=== PATIENT | male | born 1955 | race Caucasian/White ===

== ENCOUNTER → 2020-10-12 | Outpatient (CLI) | payer OTHER, SELFPAY ==
[2020-10-12 19:20] VITALS: BMI 29.7
[2020-10-12 21:44] LABS: Absolute Lymphocyte Count 2.17 X10^3/uL (0.83-4.51); Absolute Neutrophil Count 4.6 X10^3/uL (2.0-7.7); Basophil# 0.05 X10^3/uL; Basophil% 0.7 % (0-1); Eosinophil# 0.09 X10^3/uL; Eosinophils% 1.2 % (0-5); Hematocrit 47.2 % (40-54); Hemoglobin 15.5 g/dL (13.0-16.5); Lymphocyte # 2.17 X10^3/ul (4.0); Lymphocyte % 29.6 % (19-41); Mean Corp Hgb Conc 32.8 g/dL (32-36); Mean Corpuscular Hgb 31.1 pg (27.0-32.0); Mean Corpuscular Volume 94.8 fL (80-94); Mean Platelet Vol. 9.6 fl (6.2-12.0); Monocyte# 0.43 X10^3/uL; Monocyte% 5.9 % (0-10); NRBC Flagged by Analyzer 0 % (0-5); Neutrophil # 4.56 X10^3/uL (2.7-7.7); Neutrophil % 62.1 % (47-70); Platelet Count 243 K/mm3 (150-450); RBC Distribution Width CV 12.8 % (11.6-14.6); RBC Distribution Width SD 44.5 fl (35.1-43.9); Red Blood Count 4.98 M/mm3 (4.6-6.2); White Blood Count 7.3 K/mm3 (4.4-11.0)
[2020-10-12 22:11] LABS: ALB/GLOB Ratio 1.2 RATIO (0.9-2.4); AST(SGOT) 19 U/L (15-37); Alanine Aminotransfer ALT/SGPT 47 U/L (16-61); Albumin, Serum 4.1 g/dL (3.2-5.0); Alkaline Phosphatase 82 U/L (45-117); Anion Gap 6 (5-15); BUN 13 mg/dL (7-18); BUN/Creat Ratio 14.2 RATIO (10-20); Chloride 106 mmol/L (98-107); Cholesterol 154 mg/dL (200); Creatinine, Serum 0.92 mg/dL (0.70-1.30); EST Glomerular Filtration Rate 88 mL/min (>60); Est Glom Filt Rate - Afr Amer 107 mL/min (>60); Globulin 3.4 g/dL (2.2-4.2); Glucose 104 mg/dL (74-106); High Density Lipoprotein 35 mg/dL; PSA,Total - Annual Screen 0.66 ng/mL (0.00-4.00); Potassium 4.2 mmol/L (3.5-5.1); Protein, Total 7.5 g/dL (6.4-8.2); Sodium Level 141 mmol/L (136-145); Thyroid Stim Hormone (TSH) 2.35 uIU/mL (0.358-3.74); Triglycerides 136 mg/dL; Very Low Density Lipoprotein 27 mg/dL (5-40)
== END | disposition home or self-care (01) ==
PROVIDERS: Visit Provider Nurse Practitioner
DX: I10 Essential (primary) hypertension (principal); E11.65 Type 2 diabetes mellitus with hyperglycemia; R35.0 Frequency of micturition
CPT/HCPCS: 80053; 80061; 84153; 84443; 85025; G0103

== ENCOUNTER → 2020-11-01 06:14 | Outpatient (CLI) | payer OTHER, SELFPAY ==
[2020-10-21 09:13] VITALS: BMI 29.1
--- NOTE | 2020-11-01 06:19 | ECHOD_ITS ---
Reason For Study: CAD/ASHD Procedure This was a 2D Doppler, Color Flow transthoracic echocardiogram. Exam performed in department. Left Ventricle Normal LV size. Left ventricular systolic function is normal. The estimated ejection fraction is 60 %. No regional wall motion abnormalities noted. Right Ventricle Normal RV size. Normal systolic function. Atria Normal left atrium. Normal right atrium. Mitral Valve Normal mitral valve. Tricuspid Valve Normal tricuspid valve. Aortic Valve Normal aortic valve. Trisinus/trileaflet aortic valve. Pulmonic Valve Normal pulmonic valve. Great Vessels Normal aortic root. The pulmonary artery is normal size. Normal inferior vena cava. Pericardium/Pleural No pericardial effusion. MMode/2D Measurements & Calculations LVIDd: 5.0 cm IVSd: 1.1 cm Ao root diam: 3.5 cm LVIDs: 3.5 cm LVPWd: 1.1 cm RVDd: 4.1 cm FS: 29.8 % LAV(MOD-bp): 72.6 ml LA A4 area: 19.6 cm2 LA dimension(2D): 4.0 cm LAV(MOD-bp) Indexed: 33.6 ml/m2 LAV(MOD-sp2): 69.2 ml LAV(MOD-sp4): 64.9 ml RA A4 area: 20.4 cm2 Time Measurements MV dec time: 0.20 sec Doppler Measurements & Calculations MV E max kenton: 77.5 cm/sec Lat Peak E' Kenton: 9.9 cm/sec Med Peak E' Kenton: 9.6 cm/sec MV A max kenton: 56.5 cm/sec E/E' lat: 7.8 E/E' med: 8.1 MV E/A: 1.4 Ao V2 max: 135.2 cm/sec LV V1 max: 102.2 cm/sec PA V2 max: 95.2 cm/sec Ao max P.3 mmHg LV V1 max P.2 mmHg Interpretation Summary Normal LV size. Left ventricular systolic function is normal. The estimated ejection fraction is 60 %. Structurally normal valves. Ordering Physician: Juventino Weber Referring Physician: Tamar Atwood Performed By: Mary Park RDCS, RVT
--- NOTE | 2020-11-01 17:19 | STRESSREP ---
Stress Test Report Exercise myocardial perfusion stress test. 65-year-old male with a history of coronary artery disease with right arm pain. Medications aspirin, atorvastatin, metoprolol, lisinopril, Plavix. Stress protocol: Resting EKG demonstrates sinus bradycardia with a rate of 58 bpm normal intervals are noted resting blood pressure is 1 and 30/80 2 mmHg. The patient exercised according to the regular Mason protocol for a total duration of 8 minutes. The patient completed 2 minutes into stage III of the Mason protocol. The maximum heart rate attained was 133 bpm which was 85% of max impacted heart rate the maximum workload was 10.1 metabolic equivalents. At rest there were no ST or T wave changes noted suggest ischemia peak exercise upsloping ST changes were noted which did not meet the criteria for ischemia. No clinical angina was noted the test was terminated due to dyspnea and leg fatigue. No clinical angina was noted the peak blood pressure was 144/80 mmHg which was a good blood pressure response to exercise. Myocardial perfusion protocol. 12.0 mCi of technetium 99m sestamibi was injected at rest. The patient exercised according to regular Mason protocol for 8 minutes and at peak exercise 34.3 mCi of technetium 99m sestamibi was injected stress images were obtained stress and rest images were reconstructed and compared in the short axis vertical long and horizontal long axis. Gated images were also obtained Perfusion SPECT analysis: Review of the stress images demonstrate normal uptake of tracer noted in all areas of the myocardium except for the mid inferior wall which demonstrates reduced perfusion. The septum anterior wall and lateral wall appear to be well perfused. On the resting images there is improvement on the inferior perfusion area suggesting of mid inferior ischemia present. Gated SPECT analysis: The gated ejection fraction is 62%. Conclusion: Exercise myocardial perfusion stress test with evidence of mid inferior ischemia artery moderate to high workload. No obvious clinical angina noted. Preserved ejection fraction.
== END ==
PROVIDERS: PCP Nurse Practitioner; Visit Provider Internal Medicine Cardiovascular Disease
DX: I25.10 Atherosclerotic heart disease of native coronary artery without angina pectoris (principal); I25.5 Ischemic cardiomyopathy; I10 Essential (primary) hypertension; Z95.5 Presence of coronary angioplasty implant and graft
CPT/HCPCS: 78452; 93017; 93306; A9500; A4216

== ENCOUNTER 2021-05-11 12:07 | Inpatient (IN) | payer MEDICARE, SELFPAY ==
--- NOTE | 2021-05-05 10:44 | RAD_ITS ---
STUDY: X-RAY CHEST REASON FOR EXAM: Male, 66 years old. pre-operative TECHNIQUE: PA and lateral views of the chest. COMPARISON: None. FINDINGS: The lungs are clear and expanded. There is no demonstrated pleural abnormality. Normal size heart. Normal mediastinum and tay. Normal visualized pulmonary arteries. Normal visualized aortic arch and descending thoracic aorta. Normal visualized thoracic spine. Normal visualized ribs, clavicles, and shoulders. There is no demonstrated abnormality of the visualized soft tissue structures of the upper abdomen. RAD/Chest PA and Lateral IMPRESSION: Normal x-ray examination of the chest. Electronically Signed: Adrien Barriga MD at 17:27 EDT Tel , Service support ,
[2021-05-05 11:02] LABS: Absolute Lymphocyte Count 1.61 X10^3/uL (0.83-4.51); Absolute Neutrophil Count 3.7 X10^3/uL (2.0-7.7); Basophil# 0.05 X10^3/uL; Basophil% 0.8 % (0-1); Eosinophil# 0.08 X10^3/uL; Eosinophils% 1.4 % (0-5); Hematocrit 47.7 % (40-54); Lymphocyte # 1.61 X10^3/ul (0.83-4.51); Lymphocyte % 27.2 % (19-41); Mean Corp Hgb Conc 33.5 g/dL (32-36); Mean Corpuscular Hgb 30.6 pg (27.0-32.0); Mean Corpuscular Volume 91.2 fL (80-94); Monocyte# 0.44 X10^3/uL; Monocyte% 7.4 % (0-10); NRBC Flagged by Analyzer 0 % (0-5); Neutrophil # 3.71 X10^3/uL (2.7-7.7); Neutrophil % 62.7 % (47-70); Platelet Count 239 K/mm3 (150-450); RBC Distribution Width CV 12.4 % (11.6-14.6); RBC Distribution Width SD 41.1 fl (35.1-43.9); Red Blood Count 5.23 M/mm3 (4.6-6.2); White Blood Count 5.9 K/mm3 (4.4-11.0)
[2021-05-05 11:32] LABS: Anion Gap 2 (5-15); BUN 12 mg/dL (7-18); BUN/Creat Ratio 15.6 RATIO (10-20); Calcium,Total 9.2 mg/dL (8.5-10.1); Chloride 107 mmol/L (98-107); Creatinine, Serum 0.77 mg/dL (0.70-1.30); EST Glomerular Filtration Rate 108 mL/min (>60); Est Glom Filt Rate - Afr Amer 131 mL/min (>60); Glucose 95 mg/dL (74-106); Potassium 4.5 mmol/L (3.5-5.1); Sodium Level 138 mmol/L (136-145)
[2021-05-11] VITALS (31 sets, daily range): BP systolic 68–119; BP diastolic 40–62; PULSE 55–79; RESP 14–15; TEMP 36.6–36.9; O2SAT 91–99; BMI 29.5; BMI 30.2
--- NOTE | 2021-05-11 10:02 | CL.D_ITS ---
Patient Name: SHARIF FATIMA Study Date: 05/11/2021 Performing: Juventino Weber MD Ht: 70.07 inches 178 cm : 1955 Wt: 205.03 lbs 93 kg Age: 66 Gender: male BSA: 2.11 PROCEDURE(S) PERFORMED GT61-MRK/COR/LV [id number], CORONARY OR GRAFT, INITIAL VESSEL CLINICAL PROFILE AND INDICATIONS Indications: Worsening Angina Heart Failure: None Stress/Imaging Date: 10/30/20ress Test with SPECT MPI: Positive Intermediate Risk CAD Presentations: Unstable angina. CONCLUSIONS Previously placed stent in the proximal mid and distal right coronary artery is patent with moderate in-stent stenosis Moderate mid left anterior descending artery stenosis RECOMMENDATIONS Staged for FFR DESCRIPTION OF PROCEDURE The patient arrived to the procedure lab. The risks and benefits of the procedure as well as a full d escription of our services here and current unavailability of surgical backup were fully explained to the patient and/or their significant other prior to the catheterization. The Timeout was completed, verifying the correct patient and procedure. The patient's procedural site was prepped and draped in the usual fashion. Local anesthetic was given subcutaneously to right radial region with Lidocaine 2% . Using a modified Seldinger technique, arterial access was obtained via the right radial artery, a 6 Fr sheath was inserted. Right Coronary Artery selective angiography was then performed in multiple v iews using a 5 Fr. 4.0 [place] catheter. Left Coronary Artery selective angiography was performed in mu ltiple views using a 5 Fr. 4.0 [place] catheter. Left Ventriculography was performed in CHO projection using a 5 Fr. Pigtail catheter. LV to AO pullback pressures were then recorded. CORONARY ANGIOGRAPHY DOMINANCE: Right Dominant LEFT HEART ASSESSMENT Left Ventricular Ejection Fraction: by LV Gram 65 % Normal LV wall motion Normal Left Ventricular systolic function LEFT MAIN: Mild calcification LEFT ANTERIOR DESCENDING ARTERY: MID LAD: Diffusely diseased up to 65 % CIRCUMFLEX ARTERY: No significant disease noted RIGHT CORONARY ARTERY: PROX RCA: Previously placed stent is patent MID RCA: Previously placed stent has an instent 40 % restenosis DISTAL RCA: Previously placed stent has an instent 30 % restenosis, Mild luminal irregularities less than 30% COMPLICATIONS PROCEDURE MEDICATIONS Fentanyl 50 mcg IV Versed 1 mg IV Versed 1 mg IV Oxygen: 2 L/min via nasal cannula Heparin given IA 05/11/2021 09:39:26 Heparin 6000 unit(s) IV 05/11/2021 09:58:37 IV Fluids: .9 NaCl increased to WO ml/hr 05/11/2021 09:42:29 SUMMARY OF HEMODYNAMIC DATA Time AIR REST ECG 07:05:26 AO 83/56 (68) SA 09:42:06 LV 95/4, 15 09:50:48 LV 98/4, 12 09:50:54 LV 96/8, 14 09:51:29 LVp 89/7, 13 09:51:34 AOp 97/53 (65) 09:51:39 Signed By Juventino Weber MD On 05/11/2021 10:01:52 Juventino Weber MD
[2021-05-11 10:51] LABS: Bedside Glucose 136 mg/dL (70-110)
--- NOTE | 2021-05-11 10:56 | CASEMGMT ---
According to [facility] website, the following are in-network tertiary facilities: [facility], [place] [facility], [facility], [place], [facility], [facility], [facility], [place], [facility], and . Sophie ALICIA CM
--- NOTE | 2021-05-11 11:55 | ECHOL_ITS ---
Reason For Study: Assess LV function Procedure This was a limited 2D transthoracic echocardiogram. The study was technically limited. 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 Left Ventricle Normal LV size. Mild to moderate segmental systolic dysfunction (see wall motion). The estimated ejection fraction is 45 %. Mid-Lateral : Mildly hypokinetic. Mid-Anterior : Mildly hypokinetic. Mid- Posterior: Hypokinetic. There are regional wall motion abnormalities as specified. Right Ventricle Normal RV size. Normal systolic function. Pericardium/Pleural No pericardial effusion. MMode/2D Measurements & Calculations LVIDd: 4.1 cm IVSd: 1.4 cm Ao root diam: 3.5 cm LVIDs: 3.2 cm LVPWd: 1.0 cm FS: 20.8 % LA dimension(2D): 3.3 cm ECHO/Echo, Limited Study Interpretation Summary Normal LV size. Mild to moderate segmental systolic dysfunction (see wall motion). The estimated ejection fraction is 45 %. Ordering Physician: Juventino Weber Referring Physician: Juventino Weber Performed By: Sonia Borrego RDCS
[2021-05-11] MEDS: Propofol 10MG/Ml 1,000 MG/100 ML Bottle 11.2 MG CONT INF (12:20)
[2021-05-11] MEDS: HEPARIN/D5w 25,000 UNITS 25,000 UNITS/250 ML IV.SOLN. 8 UNITS IV (12:20)
[2021-05-11] MEDS: TITRATION PARAMETER CHANGE 1 EACH IV (12:20)
[2021-05-11 12:21] LABS: International Normalized Ratio 1.2; Prothrombin Time (Protime)PT. 14.1 SECONDS (11.7-14.9)
--- NOTE | 2021-05-11 12:26 | PCI.CARDCATH ---
PCI Cardiac Cath Report PCI Report: Procedure performed; 1. Intra-aortic balloon pump placement I:I Procedure in detail; 66-year-old patient, with history of CAD with ST elevation in October 2019 with PCI and stent of the RCA. On a previous report there was a dissection Underwent cardiac catheterization by his primary senior product integrity engineer Dr. Weber Demonstrated, separate ostia for LAD and the circumflex artery The LAD had moderate diffuse disease involving the ostium of 2 diagonal branches. The mid LAD lesion is around 60% at the site of a large 2 diagonal branches. RCA stent is patent. Based on the clinical presentation and symptoms of chest pain I reviewed the angiographic findings with Dr. Weber and we proceed with plan of IFR of the mid LAD. Consent; Risk and benefit of the procedure explained in detail to the patient elected to proceed Procedure in detail; Patient has access from the right radial artery and will proceed with a 6 Serbian 3.5 EBU guide, advanced ascending aorta and cannulated the LAD as he has a separate ostia of the LAD and the circumflex. Patient develop symptoms of chest pain and he become unstable with episode of V. fib shocked twice with 203 100 J amnio was started and CPR was called and will continue to work with the guide catheter We with 2 wires in the LAD and in the left circumflex And immediately we will proceed with access from the right common femoral artery and intra-aortic balloon pump placed Access from the right common femoral vein with a 6 Serbian sheath placed The chief engineer drilling and recovery Dr. Mason Meier intubated the patient and start managing his sedation and his hemodynamic while he was working on his coronary arteries. Patient cardiac rhythm becoming stable and he was sedated Intra-aortic balloon pump 1:1 was placed and patient started on heparin angiographic views were obtained and reviewed myself and his primary senior product integrity engineer Dr. Weber Patency of the LAD as well as patency of the left circumflex which is moderate sized vessel demonstrated with no evidence of dissection. With no indication for any stenting. We will start the patient on heparin was already given Plavix and aspirin. All catheters removed sutures were applied to the intra-aortic balloon pump sheath and the right common femoral vein sheath. The right radial artery sheath was left as plan of arterial blood pressure monitoring. Conclusion; Very high risk patient with history of inferior UT/STEMI with PCI and stent of large dominant RCA in October 2019 With subsequent presentation with unstable angina and symptoms of chest pain and repeat cardiac catheterization showed intermediate lesion in the mid LAD involving 2 large diagonal branches. Patient became unstable in the Stock Checker with episode of cardiac arrest requiring immediate resuscitation intubation immediate monitoring of his hemodynamic and placement of intra-aortic balloon pump and review of all his coronary angiographic views with no evidence of a dissection noted at this point and the patency of the RCA stent demonstrated Bedside immediate echocardiogram showed evidence of inferior hypokinesia which is old no new segmental wall motion abnormality the anteroseptal and the lateral myocardium motion is normal with ejection fraction probably in the range of around 40 -45% which is similar to the previous EF. As he is a high risk patient will immediately call for transfer of this patient to a tertiary facility and there were no available beds at this point Patient was taken to the intensive care unit for monitoring over the night on the intra-aortic balloon pump heparin and inotropic support and Levophed We will continue to observe and monitor in the intensive care unit. Leon Madrigal MD,FACC,[facility]
[2021-05-11 12:27] LABS: Partial Thromboplast Time 93.5 Seconds (24.1-36.2)
--- NOTE | 2021-05-11 12:45 | RAD_ITS ---
STUDY: X-RAY CHEST REASON FOR EXAM: Male, 66 years old. ET placement TECHNIQUE: Single AP portable view of the chest. COMPARISON: Comparison is made with prior examination 05/05/2021. FINDINGS: An endotracheal tube is in situ. The tip is at 3 cm proximal to the jose raul. Elevation of the right hemidiaphragm. There is prominence of the right paraventricular region most likely secondary to prominence of the azygos vein. There is no demonstrated pleural abnormality. There is mild cardiac enlargement. Normal mediastinum and tay. Normal visualized pulmonary arteries. Normal visualized aortic arch and descending thoracic aorta. There are diffuse degenerative changes of the visualized thoracic spine. Normal visualized ribs, clavicles, and shoulders. There is no demonstrated abnormality of the visualized soft tissue structures of the upper abdomen. RAD/Chest 1 View (Portable) IMPRESSION: The tip of the endotracheal tube is at 3 cm proximal to jose raul. Prominence of the azygos vein. Electronically Signed: Veto Garcia MD at 13:08 EDT , Service support ,
--- NOTE | 2021-05-11 12:52 | EX.PCM.CONCC ---
Assessment & Plan Assessment/Plan (1) Cardiac arrest with ventricular fibrillation: (2) History of ST elevation myocardial infarction (STEMI): (3) History of coronary artery stent placement: (4) Ischemic cardiomyopathy: (5) Diabetes type 2, uncontrolled: QUALIFIERS: Glycemic state: with hyperglycemia Qualified Code(s): E11.65 - Type 2 diabetes mellitus with hyperglycemia PLAN: RECOMMENDATIONS: 1. Obtain chest x-ray to verify supportive devices 2. Obtain chemistries and blood counts 3. IABP per cardiology 4. Wean Levophed as tolerated 5. Propofol and fentanyl for vent synchrony 6. Spontaneous breathing and awakening trials per protocol 7. Sliding scale insulin every 6 8. No OG indicated at this time IMPRESSIONS: 1. V. fib arrest of unclear etiology with subsequent probable cardiac shock Unclear etiology of initial V. fib arrest. Patient appears to be stabilizing at this time. Patient is receiving augmentation by intra-aortic balloon pump and Levophed. We will continue to wean pressors as tolerated. Chemistries and CBC will be sent for potential elucidation of etiology. Patient is on telemetry. Amiodarone per cardiology. Doubt septic shock as patient did not have any constitutional symptoms prior to the elective procedure. 2. Acute hypoxic respiratory failure secondary to V. fib arrest Lungs appear to be clear. Low clinical suspicion for COVID-19 as an etiology. We will continue to support patient hemodynamically. Spontaneous breathing and awakening trials per protocol. Propofol and fentanyl for vent synchrony. ABG shows adequate oxygenation and ventilation. 3. Previous [place]/diabetes mellitus type 2/GERD Complicates care, management, recovery and prognosis. Some concern for contrast-induced nephropathy given patient is on Metformin and received significant contrast. Will keep IV fluids going overnight. Hold antihypertensives given problem #1. Will initiate sliding scale insulin for now. TIME: 90 minutes critical care time spent addressing patient's V. fib arrest, shock, respiratory failure, review of all data and collaboration with care team (10:20 AM to 1 PM) HPI Consult Data Date of Consult: 05/11/21 HPI Narrative HPI Narrative: SHARIF FATIMA is a 66 M, with past medical history listed below, who presents to [facility] for an elective diagnostic heart catheterization. Patient reportedly had had a previous cardiac event that was complicated with dissection of his right coronary artery. Patient reportedly had his diagnostic cath by Dr. Weber and there was concern for possible lesion requiring FloWire evaluation. There was no complications reported with this procedure. However, a CODE BLUE was called at approximately 10:15 AM. On my arrival to the Tour Counselor at approximately 10:20 AM, patient was receiving CPR. Patient reportedly had developed V. fib arrest requiring 2 shocks. Patient had a spontaneous rhythm, but remained unresponsive despite bag mask ventilation. Deferred cardiac intervention to cardiology, but I assumed control of patient's blood pressure and airway. Patient started to moan and was complaining of pain. It was requested that the patient be intubated to facilitate evaluation for possible dissection. Patient was given 20 mg of etomidate and intubated by myself using a MAC 4 blade and a 7.5 endotracheal tube while patient was on the Tour Counselor table with C arm in place. Tube placement was confirmed using end-tidal CO2, bilateral breath sounds and fluoroscopy. Patient continued to have evaluation by cardiology, but then started to become hypotensive. Patient is reportedly a diabetic, so blood sugar was checked and was within normal limits. Patient had to be initiated on pressor therapy. Patient also had intermittent periods of agitation requiring boluses of Versed and propofol. Please see nursing documentation for exact times and doses. Cardiology did not report any obvious dissection or occlusion. Cardiology reported that a balloon pump was necessary. This was inserted by them. Patient also had a venous sheath placed to facilitate pressors. The patient was stabilized on the vent and was left to the care of cardiology at approximately 11:30 AM. Came back to the Tour Counselor at approximately 12:15 PM to evaluate the patient. The patient was improving overall, but remained agitated. The patient was transferred to the intensive care unit under my direct supervision. After arrival to the intensive care unit, patient had an ABG showing adequate oxygenation and ventilation. Patient was restrained and sedation was optimized. Patient's hemodynamics improved and pressors were starting to be titrated. Family was updated by cardiology. The majority of my time was spent in direct contact with the patient stabilizing hemodynamics. Unable to obtain additional information outside of that in the H&P. [facility] Medical History (Updated 05/11/21 @ 13:[address] 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) Pruritic dermatitis Right shoulder pain Home Medications aspirin 81 mg tablet,delayed release 81 mg PO DAILY 10/22/19 [History Last Taken 05/11/21] blood-glucose meter #1 ea 10/22/19 [Rx Last Taken Unknown] lancets #100 ea 10/22/19 [Rx Last Taken Unknown] atorvastatin 40 mg tablet 40 mg PO QHS #90 tab 10/12/20 [Rx Last Taken Unknown] baclofen 10 mg tablet 10 mg PO QHS #30 tab 10/12/20 [Rx Last Taken Unknown] empagliflozin 25 mg tablet 25 mg PO DAILY #90 tab 10/12/20 [Rx Last Taken Unknown] esomeprazole magnesium 40 mg capsule,delayed release 40 mg PO DAILY #90 cap 10/12/20 [Rx Last Taken Unknown] lisinopril 2.5 mg tablet 2.5 mg PO DAILY #90 tab 10/12/20 [Rx Last Taken 05/11/21] metformin 500 mg tablet 500 mg PO BID #180 tab 10/12/20 [Rx Last Taken Unknown] metoprolol tartrate 25 mg tablet 12.5 mg PO BID #90 tab 10/12/20 [Rx Last Taken 05/11/21] clopidogrel 75 mg tablet 75 mg PO DAILY #90 tab 10/21/20 [Rx Last Taken 05/11/21] blood sugar diagnostic #90 strip 02/06/21 [Rx Last Taken Unknown] Allergy/AdvReac Type Severity Reaction Status Date / Time No Known Allergies Allergy Verified 05/03/21 08:33 Family History Other CAD (coronary artery disease) Cancer Diabetes Heart disease Surgical History History of appendectomy History of coronary artery stent placement (10/17/19) Social History (Updated 05/03/21 @ 08:58 by Kip Faith NP, VICE PRESIDENT OF FINANCE-C) Smoking Status: Former smoker how long ago did patient quit smoking: approximately 2005 ROS Review of Systems ROS Unobtainable: due to endotracheal tube Physical Exam Const Constitutional Narrative: Good vent synchrony. General Appearance: lethargic and patient mechanically ventilated HEENT normocephalic, head/scalp atraumatic and moist oral mucous membranes Mouth: endotracheal tube in place and No OG tube in place Eyes PERRL, EOMs intact bilaterally and conjunctivae normal Neck full ROM Lymph Lymphatic: no lymphadenopathy noted Chest inspection of chest normal Chest Narrative: Symmetric expansion. No crepitus. Resp normal respiratory effort and no use of accessory muscles Auscultation: clear to auscultation bilaterally; Negative for rales, rhonchi or wheezes Cardio regular rate, regular rhythm, S1 normal heart sound, S2 normal heart sound, no murmurs, no rub, no gallops and no JVD Cardio Narrative: Balloon pump in place with one-to-one augmentation GI normal to inspection, nondistended, normoactive bowel sounds Extremity no clubbing, cyanosis or edema Extremity Narrative: Arterial and venous sheath noted in the right groin. Patient also has a right radial sheath. Skin General Skin Exam: Negative for fluctuance or mottling Neuro Sensorium / Orientation: sedated on vent RASS: -2 Psych Mood & Affect: flat affect Lab / Micro Data Result Diagrams: 05/05/21 10:34 05/05/21 10:34 Labs: Laboratory Results - last 24 hr 05/11/21 10:45: POC Glucose 136 H 05/11/21 12:00: PT 14.1, INR 1.2, APTT 93.5 H* Charges/Coding Procedures Hospitalists Procedures: 36222 Critial Care 1st Hr Multi [facility] Codes Hospitalists' Procedures Procedures: 26170 Critial Care Addl 30 Min
[2021-05-11 13:02] LABS: Absolute Lymphocyte Count 1.64 X10^3/uL (0.83-4.51); Absolute Neutrophil Count 9.1 X10^3/uL (2.0-7.7); Basophil# 0.03 X10^3/uL; Basophil% 0.3 % (0-1); Eosinophil# 0.05 X10^3/uL; Eosinophils% 0.4 % (0-5); Hematocrit 44.4 % (40-54); Hemoglobin 15.1 g/dL (13.0-16.5); Lymphocyte # 1.64 X10^3/ul (0.83-4.51); Lymphocyte % 14.1 % (19-41); Mean Corpuscular Hgb 30.7 pg (27.0-32.0); Mean Corpuscular Volume 90.2 fL (80-94); Mean Platelet Vol. 9.5 fl (6.2-12.0); Monocyte# 0.76 X10^3/uL; Monocyte% 6.5 % (0-10); NRBC Flagged by Analyzer 0 % (0-5); Neutrophil # 9.11 X10^3/uL (2.7-7.7); Platelet Count 262 K/mm3 (150-450); RBC Distribution Width CV 12.6 % (11.6-14.6); RBC Distribution Width SD 41.3 fl (35.1-43.9); Red Blood Count 4.92 M/mm3 (4.6-6.2); White Blood Count 11.7 K/mm3 (4.4-11.0)
[2021-05-11 13:27] LABS: Lactic Acid 0.6 mmol/L (0.4-1.9)
[2021-05-11 13:33] LABS: ALB/GLOB Ratio 0.9 RATIO (0.9-2.4); AST(SGOT) 324 U/L (15-37); Alanine Aminotransfer ALT/SGPT 393 U/L (16-61); Alkaline Phosphatase 59 U/L (45-117); Anion Gap 8 (5-15); BUN 15 mg/dL (7-18); BUN/Creat Ratio 20.4 RATIO (10-20); Calcium,Total 7.9 mg/dL (8.5-10.1); Chloride 106 mmol/L (98-107); Creatinine, Serum 0.74 mg/dL (0.70-1.30); EST Glomerular Filtration Rate 114 mL/min (>60); Est Glom Filt Rate - Afr Amer 137 mL/min (>60); Estimated Creatinine Clearance 102.76 ml/min; Globulin 3.3 g/dL (2.2-4.2); Glucose 160 mg/dL (74-106); Potassium 4.7 mmol/L (3.5-5.1); Protein, Total 6.3 g/dL (6.4-8.2); Sodium Level 135 mmol/L (136-145); Troponin-I HS 417 pg/mL (3.0-78.0)
[2021-05-11] MEDS: Alteplase 2 MG/2 ML Vial IV (13:40)
[2021-05-11] MEDS: Lactated Ringers 1,000 ML 100 ML IV (14:00)
--- NOTE | 2021-05-11 14:02 | HP.PCM.HOS_ITS ---
HPI - General General Date of Admission: 05/11/21 HPI Narrative SHARIF FATIMA, is a 66 M who presents today for elective LHC. During procedure he developed vfib arrest. He was successfully resuscitated with chest compressions, epinephrine and defibrillation. Pt was intubated in the fence laborer. Transferred to ICU with balloon pump 1:1. During the catheterization she had an LAD lesion of 60%, patent RCA stent. Cardiology reached out to OSH, but no readily available beds. It does not appear the patient was accepted to any facility. 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) Pruritic dermatitis Right shoulder pain Home Medications aspirin 81 mg tablet,delayed release 81 mg PO DAILY 10/22/19 [History Last Taken 05/11/21] blood-glucose meter #1 ea 10/22/19 [Rx Last Taken Unknown] lancets #100 ea 10/22/19 [Rx Last Taken Unknown] atorvastatin 40 mg tablet 40 mg PO QHS #90 tab 10/12/20 [Rx Last Taken Unknown] baclofen 10 mg tablet 10 mg PO QHS #30 tab 10/12/20 [Rx Last Taken Unknown] empagliflozin 25 mg tablet 25 mg PO DAILY #90 tab 10/12/20 [Rx Last Taken Unknown] esomeprazole magnesium 40 mg capsule,delayed release 40 mg PO DAILY #90 cap 10/12/20 [Rx Last Taken Unknown] lisinopril 2.5 mg tablet 2.5 mg PO DAILY #90 tab 10/12/20 [Rx Last Taken 05/11/21] metformin 500 mg tablet 500 mg PO BID #180 tab 10/12/20 [Rx Last Taken Unknown] metoprolol tartrate 25 mg tablet 12.5 mg PO BID #90 tab 10/12/20 [Rx Last Taken 05/11/21] clopidogrel 75 mg tablet 75 mg PO DAILY #90 tab 10/21/20 [Rx Last Taken 05/11/21 ] blood sugar diagnostic #90 strip 02/06/21 [Rx Last Taken Unknown] Allergy/AdvReac Type Severity Reaction Status Date / Time No Known Allergies Allergy Verified 05/03/21 08:33 Family History Other CAD (coronary artery disease) Cancer Diabetes Heart disease Surgical History History of appendectomy History of coronary artery stent placement (10/17/19) Social History Smoking Status: Former smoker how long ago did patient quit smoking: approximately 2005 ROS Review of Systems ROS Unobtainable: due to encephalopathy Vital Signs Vital Signs Vital Signs: 05/11/21 10:24 05/11/21 13:12 Pulse Rate 55 L 60 Respiratory Rate 15 14 Respiratory Pattern Normal Pulse Ox 99 96 Fraction of Inspired Oxygen (FIO2) 100 25 Weight Weight: 93.44 kg Body Mass Index (BMI) 29.5 Physical Exam Const Constitutional Narrative: Intubated. Sedated. On a ventilator. HEENT normocephalic and head/scalp atraumatic Neck no lymphadenopathy Resp normal respiratory effort, no retractions, no use of accessory muscles and clear to auscultation bilaterally Cardio regular rate and regular rhythm Cardio Narrative: Balloon pump auscultated GI normal to inspection, nondistended, normoactive bowel sounds, soft to palpation, non-tender, non-distended and hepatosplenomegaly Extremity normal to inspection Results Lab / Micro Data Attestation: I reviewed the patient's lab results. Result Diagrams: 05/11/21 12:40 05/11/21 12:40 Labs: Laboratory Results - last 24 hr 05/11/21 10:45: POC Glucose 136 H 05/11/21 12:00: PT 14.1, INR 1.2, APTT 93.5 H* 05/11/21 12:40: WBC 11.7 H, RBC 4.92, Hgb 15.1, Hct 44.4, MCV 90.2, MCH 30.7, MCHC 34.0, RDW Std Deviation 41.3, RDW Coeff of Zully 12.6, Plt Count 262, MPV 9.5, Immature Gran % (Auto) 0.700, Neut % (Auto) 78.0 H, Lymph % (Auto) 14.1 L, [place] % (Auto) 6.5, Eos % (Auto) 0.4, Baso % (Auto) 0.3, Absolute Neuts (auto) 9.1 H, Absolute Lymphs (auto) 1.64, Nucleated RBC % 0 05/11/21 12:40: Sodium 135 L, Potassium 4.7, Chloride 106, Carbon Dioxide 21.0, Anion Gap 8, BUN 15, Creatinine 0.74, Estim Creat Clear Calc 102.76, Est GFR (MDRD) Af Amer 137, Est GFR (MDRD) Non-Af 114, BUN/Creatinine Ratio 20.4 H, Gl ucose 160 H, Calcium 7.9 L, Total Bilirubin 0.90, AST 324 H, ALT 393 H, Alkaline Phosphatase 59, Troponin I High Sens 417 H*, Total Protein 6.3 L, Albumin 3.0 L, Globulin 3.3, Albumin/Globulin Ratio 0.9 05/11/21 12:40: Lactic Acid 0.6 Radiology Impression Echocardiogram 05/11/21 11:55 Interpretation Summary Normal LV size. Mild to moderate segmental systolic dysfunction (see wall motion). The estimated ejection fraction is 45 %. Ordering Physician: Juventino Weber Referring Physician: Juventino Weber Performed By: Sonia Borrego, CS Chest X-Ray 05/11/21 12:45 IMPRESSION: The tip of the endotracheal tube is at 3 cm proximal to jose raul. Prominence of the azygos vein. Electronically Signed: Veto Garcia MD at 13:08 EDT , Service support , Assessment & Plan Assessment/Plan (1) Cardiac arrest with ventricular fibrillation: PLAN: 1. V. fib arrest * During cardiac catheterization * Successfully resuscitated * Currently on balloon pump at 1-1 with heparin drip * On norepinephrine * On amiodarone * Additional management per cardiology and CCM * Defer the need to transfer and facilitating transfer to cardiology 2. Acute hypoxic respiratory failure * Secondary to cardiac arrest * Intubated in the Staple Shear Operator * Management and sedation per CCM 3. Elevated troponins * Non-STEMI versus CPR versus V. fib arrest * Management per cardiology 4. Coronary artery disease * Known PCI with RCA stent * Continue aspirin, clopidogrel, atorvastatin. 5. Diabetes mellitus type 2 * Metformin held given the recent contrast load * Sliding Scale insulin 6. VTE prophylaxis: Not indicated given patient currently anticoagulated 7. CODE STATUS: Previous addressed per cardiology. Full code.. Charges/Coding Visit Charges Inpatient E&M: 48559 Init Hosp L3
--- NOTE | 2021-05-11 14:55 | CHAPLAIN ---
Type of Pastoral Visit _x__ Initial Visit ___ Follow-up Visit ___ On-call Visit ___ General Patient Visit ___ Spiritual Assessment ___ Family Conference ___ Bereavement ___ Rapid Response ___ Code Blue ___ Other (describe below) Pastoral Care Referral From ___ Patient ___ Family ___ Nurse ___ Physician ___ Distillery Miller ___ Home Health Rn _x__ Other (describe below) Material Combiner requested assistance with spouse of patient who had coded in the Claim Inspector Sacrament/Intervention _x__ Active listening ___ Anointing ___ Druze ___ Bereavement ___ Communion ___ [place]iola exploration ___ ___ Life review _x__ Prayer ___ Reconciliation ___ Sacrament of Sick _x__ Supportive presence ___ Wedding ___ Other (describe below) Pastoral Comments sat with spouse in the high density press laborer room after pt had coded; pt was revived and sent to the ICU; gave spouse time to talk and offered a prayer; escorted spouse into room to see pt and then walked her to her car when she left
[2021-05-11 15:09] LABS: Troponin-I HS 1427 pg/mL (3.0-78.0)
[2021-05-11 15:30] LABS: Base Excess -6 mmol/L (-2 to +2); Bicarbonate 20.2 mmol/L (22-26); Blood Gas Specimen Type ART; FI02 30; Mode AC; O2 Delivery Device Adult Vent; PEEP 5; PO2 77 mmHG (75-100); RR 14; SITE Art Line; SO2 94 % (95-99); Total Carbon Dioxide 21 mmol/L; Vt 500; pCO2 38.6 mmHg (35-45); pH 7.33 (7.35-7.45)
[2021-05-11] MEDS: Propofol 10MG/Ml 1,000 MG/100 ML Bottle 16.8 MG CONT INF ×2 (15:35→20:40)
[2021-05-11 18:15] LABS: Bedside Glucose 114 mg/dL (70-110)
[2021-05-11 18:54] LABS: Partial Thromboplast Time 37.5 Seconds (24.1-36.2)
[2021-05-11] MEDS: Heparin Injection (Vial) 5,000 UNIT/ML VIAL IV (19:31)
[2021-05-12] VITALS (43 sets, daily range): BP systolic 81–140; BP diastolic 36–77; PULSE 60–101; RESP 12–34; TEMP 36.6–38.1; O2SAT 90–99
[2021-05-12 00:21] LABS: Bedside Glucose 125 mg/dL (70-110)
[2021-05-12 02:20] LABS: Absolute Lymphocyte Count 1.37 X10^3/uL (0.83-4.51); Absolute Neutrophil Count 8.7 X10^3/uL (2.0-7.7); Basophil# 0.02 X10^3/uL; Basophil% 0.2 % (0-1); Eosinophil# 0.03 X10^3/uL; Eosinophils% 0.3 % (0-5); Hematocrit 42.5 % (40-54); Hemoglobin 14.4 g/dL (13.0-16.5); Lymphocyte # 1.37 X10^3/ul (0.83-4.51); Lymphocyte % 12.3 % (19-41); Mean Corp Hgb Conc 33.9 g/dL (32-36); Mean Corpuscular Volume 91.4 fL (80-94); Mean Platelet Vol. 9.3 fl (6.2-12.0); Monocyte# 1.01 X10^3/uL; Monocyte% 9.1 % (0-10); NRBC Flagged by Analyzer 0 % (0-5); Neutrophil # 8.65 X10^3/uL (2.7-7.7); Neutrophil % 77.7 % (47-70); Platelet Count 219 K/mm3 (150-450); RBC Distribution Width CV 12.8 % (11.6-14.6); RBC Distribution Width SD 42.4 fl (35.1-43.9); Red Blood Count 4.65 M/mm3 (4.6-6.2); White Blood Count 11.1 K/mm3 (4.4-11.0)
[2021-05-12] MEDS: Propofol 10MG/Ml 1,000 MG/100 ML Bottle 11.2 MG CONT INF (02:27)
[2021-05-12 02:34] LABS: Partial Thromboplast Time 39.1 Seconds (24.1-36.2)
[2021-05-12] MEDS: Heparin Injection (Vial) 5,000 UNIT/ML VIAL IV (02:42)
[2021-05-12 02:44] LABS: ALB/GLOB Ratio 0.9 RATIO (0.9-2.4); AST(SGOT) 127 U/L (15-37); Alanine Aminotransfer ALT/SGPT 296 U/L (16-61); Alkaline Phosphatase 59 U/L (45-117); Anion Gap 7 (5-15); BUN 12 mg/dL (7-18); BUN/Creat Ratio 16.6 RATIO (10-20); Calcium,Total 8.1 mg/dL (8.5-10.1); Chloride 107 mmol/L (98-107); Creatinine, Serum 0.72 mg/dL (0.70-1.30); EST Glomerular Filtration Rate 116 mL/min (>60); Est Glom Filt Rate - Afr Amer 140 mL/min (>60); Estimated Creatinine Clearance 105.61 ml/min; Globulin 3.2 g/dL (2.2-4.2); Glucose 143 mg/dL (74-106); Potassium 3.8 mmol/L (3.5-5.1); Protein, Total 6.2 g/dL (6.4-8.2); Sodium Level 138 mmol/L (136-145)
[2021-05-12] MEDS: Haloperidol Lactate 5 MG/ML Vial 3 MG IV (05:20)
--- NOTE | 2021-05-12 05:55 | RAD_ITS ---
STUDY: X-RAY CHEST REASON FOR EXAM: Male, 66 years old. Portable -- Verify balloon position TECHNIQUE: Portable, supine, AP chest radiograph COMPARISON: 05/11/2021 FINDINGS: Endotracheal tube remains. The lungs are clear and expanded. There is no demonstrated pleural abnormality. Normal size heart. Normal mediastinum and tay. Normal visualized pulmonary arteries. Normal visualized aortic arch and descending thoracic aorta. There is no demonstrated abnormality of the visualized soft tissue structures of the upper abdomen. RAD/Chest 1 View (Portable) IMPRESSION: Aortic balloon terminates over the aortic knob. Electronically Signed: Gil Rome MD at 5:49 EDT Tel , Service support ,
[2021-05-12 06:15] LABS: Base Excess -4 mmol/L (-2 to +2); Bicarbonate 20.8 mmol/L (22-26); Blood Gas Specimen Type ART; FI02 28; Mode AC; O2 Delivery Device Adult Vent; PEEP 5; PO2 77 mmHG (75-100); RR 14; SITE Art Line; SO2 95 % (95-99); Total Carbon Dioxide 22 mmol/L; Vt 500; pCO2 33.4 mmHg (35-45)
[2021-05-12] MEDS: Insulin Lispro 100 UNIT/ML INSULN.PEN SC (06:22)
--- NOTE | 2021-05-12 07:07 | PN.CC_ITS ---
Assessment & Plan Assessment/Plan (1) Cardiac arrest with ventricular fibrillation: (2) History of ST elevation myocardial infarction (STEMI): (3) History of coronary artery stent placement: (4) Ischemic cardiomyopathy: (5) Diabetes type 2, uncontrolled: QUALIFIERS: Glycemic state: with hyperglycemia Qualified Code(s): E11.65 - Type 2 diabetes mellitus with hyperglycemia PLAN: RECOMMENDATIONS: 1. Initiate Unasyn for possible aspiration 2. Wean Levophed as tolerated 3. IABP per cardiology 4. Discontinue propofol and fentanyl 5. Wean Precedex as tolerated IMPRESSIONS: 1. V. fib arrest of unclear etiology with subsequent probable cardiac shock Unclear etiology of initial V. fib arrest. Patient appears to be stabilizing at this time. Patient is receiving augmentation by intra-aortic balloon pump and Levophed. We will continue to wean pressors as tolerated. Laboratory work-up is relatively unremarkable. Patient is on telemetry. Amiodarone per cardiology. Doubt septic shock as patient did not have any constitutional symptoms prior to the elective procedure. 2. Acute hypoxic respiratory failure secondary to V. fib arrest Given increase in secretions, there is some concern for possible aspiration during arrest. Patient will be placed empirically on Unasyn and cultures were obtained. Low clinical suspicion for COVID-19 as an etiology. We will continue to support patient hemodynamically. We will continue with Precedex and restraints as long as balloon pump is in place as patient has been very impulsive. 3. Previous [place]/diabetes mellitus type 2/GERD Complicates care, management, recovery and prognosis. Some concern for contrast-induced nephropathy given patient is on Metformin and received significant contrast. Hold IV fluids. Hold antihypertensives given problem #1. Will initiate sliding scale insulin for now. TIME: 45 minutes critical care time spent addressing patient's V. fib arrest, shoc k, respiratory failure, review of all data and collaboration with care team (5:30 AM to 7 AM) Subjective Subjective Patient did okay from a hemodynamic standpoint overnight. Patient remains on intra-aortic balloon pump at one-to-one augmentation. Patient has had significant improvement in his Levophed. Nursing and respiratory are reporting the development of increasing secretions that are yellow. Patient did pass a s pontaneous breathing trial and was successfully extubated this morning. Objective Data Objective Data Vital Signs: Vital Signs Temp Pulse Resp BP Pulse Ox 37.0 C 65 18 84/36 L 96 05/12/21 04:00 05/12/21 06:53 05/12/21 06:20 05/12/21 06:53 05/12/21 06:20 Oxygen Flow Rate (L/min) 2 Oxygen Delivery Method Nasal Cannula Weight: 97.2 kg Body Mass Index (BMI) 30.2 Intake & Output: Intake and Output for Last 24 Hours 05/10/21 05/11/21 05/12/21 23:59 23:59 23:59 Intake Total 1167.87 / 1261.57 444.30 / 444.30 Output Total 915 / 1015 480 / 480 Balance 252.87 / 246.57 -35.70 / -35.70 Lab / Micro Data Result Diagrams: 05/12/21 01:50 05/12/21 01:50 Labs: Laboratory Results - last 24 hr 05/11/21 10:45: POC Glucose 136 H 05/11/21 12:00: PT 14.1, INR 1.2, APTT 93.5 H* 05/11/21 12:40: WBC 11.7 H, RBC 4.92, Hgb 15.1, Hct 44.4, MCV 90.2, MCH 30.7, MCHC 34.0, RDW Std Deviation 41.3, RDW Coeff of Zully 12.6, Plt Count 262, MPV 9.5, Immature Gran % (Auto) 0.700, Neut % (Auto) 78.0 H, Lymph % (Auto) 14.1 L, [place] % (Auto) 6.5, Eos % (Auto) 0.4, Baso % (Auto) 0.3, Absolute Neuts (auto) 9.1 H, Absolute Lymphs (auto) 1.64, Nucleated RBC % 0 05/11/21 12:40: Sodium 135 L, Potassium 4.7, Chloride 106, Carbon Dioxide 21.0, Anion Gap 8, BUN 15, Creatinine 0.74, Estim Creat Clear Calc 102.76, Est GFR (MDRD) Af Amer 137, Est GFR (MDRD) Non-Af 114, BUN/Creatinine Ratio 20.4 H, Glucose 160 H, Calcium 7.9 L, Total Bilirubin 0.90, AST 324 H, ALT 393 H, Alkaline Phosphatase 59, Troponin I High Sens 417 H*, Total Protein 6.3 L, Albumin 3.0 L, Globulin 3.3, Albumin/Globulin Ratio 0.9 05/11/21 12:40: Lactic Acid 0.6 05/11/21 14:45: Troponin I High Sens 1427 H* 05/11/21 18:00: APTT 37.5 H 05/11/21 18:11: POC Glucose 114 H 05/11/21 23:51: POC Glucose 125 H 05/12/21 01:50: WBC 11.1 H, RBC 4.65, Hgb 14.4, Hct 42.5, MCV 91.4, MCH 31.0, MCHC 33.9, RDW Std Deviation 42.4, RDW Coeff of Zully 12.8, Plt Count 219, MPV 9.3, Immature Gran % (Auto) 0.400, Neut % (Auto) 77.7 H, Lymph % (Auto) 12.3 L, [place] % (Auto) 9.1, Eos % (Auto) 0.3, Baso % (Auto) 0.2, Absolute Neuts (auto) 8.7 H, Absolute Lymphs (auto) 1.37, Nucleated RBC % 0 05/12/21 01:50: Sodium 138, Potassium 3.8, Chloride 107, Carbon Dioxide 24.0, Anion Gap 7, BUN 12, Creatinine 0.72, Estim Creat Clear Calc 105.61, Est GFR (MDRD) Af Amer 140, Est GFR (MDRD) Non-Af 116, BUN/Creatinine Ratio 16.6, Glucose 143 H, Calcium 8.1 L, Total Bilirubin 0.70, AST 127 H, ALT 296 H, Alkaline Phosphatase 59, Total Protein 6.2 L, Albumin 3.0 L, Globulin 3.2, Albumin/Globulin Ratio 0.9 05/12/21 01:50: APTT 39.1 H ABG Data ABG results: ABG 05/11/21 05/12/21 12:31 06:08 Specimen Type ART ART Sample Site Art Line Art Line pH 7.33 L 7.40 Bicarbonate Actual 20.2 L 20.8 L Total CO2 21 22 Base Excess -6 L -4 L O2 Saturation 94 L 95 O2 % 30 28 ABG pCO2 38.6 33.4 L ABG pO2 77 77 Tim Test N/A Respiration Rate 14 14 O2 Delivery Device Adult Vent Adult Vent Vent Mode AC AC Tidal Volume 500 500 POC PEEP 5 5 Radiography Diagnostic Testing: Radiology Impression Echocardiogram 05/11/21 11:55 Interpretation Summary Normal LV size. Mild to moderate segmental systolic dysfunction (see wall motion). The estimated ejection fraction is 45 %. Ordering Physician: Juventino Weber Referring Physician: Juventino Weber Performed By: Sonia Borrego [facility]EN[facility] Chest X-Ray 05/11/21 12:45 IMPRESSION: The tip of the endotracheal tube is at 3 cm proximal to jose raul. Prominence of the azygos vein. Electronically Signed: Veto Garcia MD at 13:08 EDT , Service support , Chest X-Ray 05/12/21 05:55 IMPRESSION: Aortic balloon terminates over the aortic knob. Electronically Signed: Gil Rome MD at 5:49 EDT Tel , Service support , Physical Exam Const Constitutional Narrative: Good vent synchrony initially. Successfully extubated with no secondary stridor General Appearance: lethargic and patient mechanically ventilated HEENT normocephalic, head/scalp atraumatic and moist oral mucous membranes Eyes PERRL, EOMs intact bilaterally and conjunctivae normal Neck full ROM Lymph Lymphatic: no lymphadenopathy noted Chest inspection of chest normal Chest Narrative: Symmetric expansion. No crepitus. Resp normal respiratory effort and no use of accessory muscles Auscultation: rhonchi right lower; Negative for rales or wheezes Cardio regular rate, regular rhythm, S1 normal heart sound, S2 normal heart sound, no murmurs, no rub, no gallops and no JVD Cardio Narrative: Balloon pump in place with one-to-one augmentation GI normal to inspection, nondistended, normoactive bowel sounds Extremity no clubbing, cyanosis or edema Extremity Narrative: Arterial and venous sheath noted in the right groin. Right radial sheath removed without hematoma Skin General Skin Exam: Negative for fluctuance or mottling Psych Mood & Affect: flat affect Charges/Coding Procedures Hospitalists Procedures: 75460 Critial Care 1st Hr
[2021-05-12] MEDS: TITRATION PARAMETER CHANGE 1 EACH IV (07:50)
--- NOTE | 2021-05-12 07:55 | NURSING ---
Patient switched to 1:2 on the balloon pump per Dr Weber
[2021-05-12] MEDS: Pantoprazole Sodium 40 MG Tablet PO (08:47)
[2021-05-12] MEDS: Clopidogrel Bisulfate 75 MG Tablet PO (08:47)
[2021-05-12] MEDS: Aspirin E.C. 81 MG Tablet PO (08:47)
--- NOTE | 2021-05-12 08:47 | NURSING ---
hold heparin at this time per Dr Madrigal.
[2021-05-12 09:11] LABS: Partial Thromboplast Time 48.5 Seconds (24.1-36.2)
[2021-05-12] MEDS: Phenol/Sodium Phenolate 180ML 3 SPRAY MUCOUS MEM ×2 (10:42→15:53)
[2021-05-12] MEDS: oxyCODONE 5 MG Tablet PO ×2 (11:28→19:38)
[2021-05-12] MEDS: 0.9% Normal Saline 1,000 ML 999 ML IV (12:10)
--- NOTE | 2021-05-12 12:36 | NURSING ---
Dr Madrigal was at bed side at 12:00pm, Arterial sheath as pulled at 12:07 and pressure was held by Dr Madrigal for 25minutes. This RN pulled the Venous sheath and held pressure for approximately 20minutes. Sterile dressing applied by this RN. Patient's blood pressure dropped to the low 90's systolic and low 40's diastolic x1 liter bolus give. Fem stop applied at this time as well.
[2021-05-12 12:41] LABS: Bedside Glucose 106 mg/dL (70-110)
--- NOTE | 2021-05-12 14:03 | PN.HOSP_ITS ---
Subjective Subjective anxious to have pump out Objective Data Objective Data Vital Signs: Vital Signs Temp Pulse Resp BP Pulse Ox 36.6 C 95 21 H 123/59 H 95 05/12/21 12:00 05/12/21 13:15 05/12/21 13:15 05/12/21 13:15 05/12/21 13:15 Oxygen Flow Rate (L/min) 2 Oxygen Delivery Method Room Air Weight: 97.2 kg Body Mass Index (BMI) 30.2 Intake & Output: Intake and Output for Last 24 Hours 05/10/21 05/11/21 05/12/21 23:59 23:59 23:59 Intake Total 1167.87 / 1261.57 1729.63 / 1729.63 Output Total 915 / 1015 815 / 815 Balance 252.87 / 246.57 914.63 / 914.63 Lab / Micro Data Result Diagrams: 05/12/21 01:50 05/12/21 01:50 Labs: Laboratory Results - last 24 hr 05/11/21 14:45: Troponin I High Sens 1427 H* 05/11/21 18:00: APTT 37.5 H 05/11/21 18:11: POC Glucose 114 H 05/11/21 23:51: POC Glucose 125 H 05/12/21 01:50: WBC 11.1 H, RBC 4.65, Hgb 14.4, Hct 42.5, MCV 91.4, MCH 31.0, MCHC 33.9, RDW Std Deviation 42.4, RDW Coeff of Zully 12.8, Plt Count 219, MPV 9.3, Immature Gran % (Auto) 0.400, Neut % (Auto) 77.7 H, Lymph % (Auto) 12.3 L, [place] % (Auto) 9.1, Eos % (Auto) 0.3, Baso % (Auto) 0.2, Absolute Neuts (auto) 8.7 H, Absolute Lymphs (auto) 1.37, Nucleated RBC % 0 05/12/21 01:50: Sodium 138, Potassium 3.8, Chloride 107, Carbon Dioxide 24.0, Anion Gap 7, BUN 12, Creatinine 0.72, Estim Creat Clear Calc 105.61, Est GFR (MDRD) Af Amer 140, Est GFR (MDRD) Non-Af 116, BUN/Creatinine Ratio 16.6, G lucose 143 H, Calcium 8.1 L, Total Bilirubin 0.70, AST 127 H, ALT 296 H, Alkaline Phosphatase 59, Total Protein 6.2 L, Albumin 3.0 L, Globulin 3.2, Albumin/Globulin Ratio 0.9 05/12/21 01:50: APTT 39.1 H 05/12/21 08:40: APTT 48.5 H 05/12/21 12:32: POC Glucose 106 ABG Data ABG results: ABG 05/11/21 05/12/21 12:31 06:08 Specimen Type ART ART Sample Site Art Line Art Line pH 7.33 L 7.40 Bicarbonate Actual 20.2 L 20.8 L Total CO2 21 22 Base Excess -6 L -4 L O2 Saturation 94 L 95 O2 % 30 28 ABG pCO2 38.6 33.4 L ABG pO2 77 77 Tim Test N/A Respiration Rate 14 14 O2 Delivery Device Adult Vent Adult Vent Vent Mode AC AC Tidal Volume 500 500 POC PEEP 5 5 Radiography Diagnostic Testing: Radiology Impression Chest X-Ray 05/12/21 05:55 IMPRESSION: Aortic balloon terminates over the aortic knob. Electronically Signed: Gil Rome MD at 5:49 EDT Tel , Service support , Physical Exam Const alert Resp normal respiratory effort, no retractions, no use of accessory muscles and clear to auscultation bilaterally Cardio regular rate and regular rhythm Cardio Narrative: balloon pump GI normal to inspection, nondistended, normoactive bowel sounds, soft to palpation, non-tender and non-distended Assessment & Plan Assessment/Plan (1) Cardiac arrest with ventricular fibrillation: PLAN: 1. V. fib arrest * During cardiac catheterization * Successfully resuscitated * Balloon pump to be removed today. * On norepinephrine * On amiodarone * Additional management per cardiology and [facility] * Defer the need to transfer and facilitating transfer to cardiology 2. Acute hypoxic respiratory failure * Secondary to cardiac arrest * Intubated in the Truck Driver Heavy, extubated 05/12 3. Elevated troponins * Non-STEMI versus CPR versus V. fib arrest * Management per cardiology 4. Coronary artery disease * Known PCI with RCA stent * Continue aspirin, clopidogrel, atorvastatin. 5. Diabetes mellitus type 2 * Metformin held given the recent contrast load * Sliding Scale insulin 6. VTE prophylaxis: Not indicated given patient currently anticoagulated 7. CODE STATUS: Previous addressed per cardiology. Full code.. Charges/Coding Visit Charges Inpatient E&M: 97711 Subs Hosp L2
--- NOTE | 2021-05-12 14:55 | CASEMGMT ---
RN ILYA RN PERIOPERATIVE CM to room to meet with patient for initial transition planning/care coordination assessment. RN ILYA introduced self and role at [facility]. Pt voices understanding and consents to assessment at this time. Pt resting in bed in no distress at this time. Pt is A/O at this time and answers all questions appropriately. Care providers, pharmacy, and demographics verified/updated at this time. PCP: Tamar Atwood NATIONAL EXPANSION RECRUITER Specialists: [facility]/cardiology Preferred Pharmacy: [facility] Insurance: [facility] Prescription Benefit: yes Living Will/HPOA: Pt does not currently have LW/HCPOA and declines info at this time. Pt made aware that he can contact SW as an out-pt and make appt in the future if he decides he would like to talk with someone about this or would like to utilize [facility] social work for advanced directive completion. Given Coal Washer Tender Rac card with information and contact number. Pt expresses understanding. LNOK: , Rubia Living Arrangements: Lives w/ in one-story home w/basement. 3 steps to enter home. Independent w/ADL's. They share home mgmt tasks. does the laundry. Pt does most of the cooking. Transportation: Pt states drives self and states no transportation concerns at this time. also drives. DME: States has the following DME: functioning glucometer Pt states no need for further DME at this time. HHC/SNF: No history of either. No needs identified. Declines need for HHC Pt wishes to return home and states has no concerns with going home at time of discharge. CM to follow for any discharge planning/needs. Pt voices no concerns/needs at this time. Advised pt to ask for CM if any questions/concerns/needs arise. Voices understanding. PLAN: Home w/spousal support and discharge plans in place. Pt had PCI done this admission. Follow for any new anti-coag orders @ discharge. Pt may need 30-day savings card, depending on what anti-coag he is discharged home on. Shanthi MANUEL RN, CM
[2021-05-12 17:51] LABS: Bedside Glucose 81 mg/dL (70-110)
--- NOTE | 2021-05-12 20:00 | NURSING ---
Pt provided with incentive spirometer, pt educated on how to use and what it's for. Pt encouraged to use 10 times every hour. Pt verbalizes understanding and provides return demonstration.
[2021-05-12 22:05] LABS: Bedside Glucose 156 mg/dL (70-110)
[2021-05-12] MEDS: Atorvastatin Calcium 40 MG Tablet PO (22:09)
[2021-05-12] MEDS: Acetaminophen 325 MG Tablet 650 MG PO (23:02)
[2021-05-13] VITALS (18 sets, daily range): BP systolic 93–143; BP diastolic 60–91; PULSE 76–95; RESP 14–27; TEMP 36.7–37.3; O2SAT 90–97
[2021-05-13 01:41] LABS: Bedside Glucose 89 mg/dL (70-110)
[2021-05-13] MEDS: oxyCODONE 5 MG Tablet PO (04:39)
[2021-05-13 05:12] LABS: Absolute Lymphocyte Count 0.79 X10^3/uL (0.83-4.51); Absolute Neutrophil Count 6.3 X10^3/uL (2.0-7.7); Basophil# 0.03 X10^3/uL; Basophil% 0.4 % (0-1); Eosinophil# 0.03 X10^3/uL; Eosinophils% 0.4 % (0-5); Hematocrit 39.6 % (40-54); Hemoglobin 13.6 g/dL (13.0-16.5); Lymphocyte # 0.79 X10^3/ul (0.83-4.51); Mean Corp Hgb Conc 34.3 g/dL (32-36); Mean Corpuscular Hgb 31.1 pg (27.0-32.0); Mean Corpuscular Volume 90.6 fL (80-94); Mean Platelet Vol. 9.3 fl (6.2-12.0); Monocyte# 0.72 X10^3/uL; Monocyte% 9.1 % (0-10); NRBC Flagged by Analyzer 0 % (0-5); Neutrophil # 6.27 X10^3/uL (2.7-7.7); Neutrophil % 79.7 % (47-70); Platelet Count 145 K/mm3 (150-450); RBC Distribution Width CV 12.5 % (11.6-14.6); RBC Distribution Width SD 41.3 fl (35.1-43.9); Red Blood Count 4.37 M/mm3 (4.6-6.2); White Blood Count 7.9 K/mm3 (4.4-11.0)
[2021-05-13 05:27] LABS: Anion Gap 7 (5-15); BUN 10 mg/dL (7-18); BUN/Creat Ratio 14.8 RATIO (10-20); Calcium,Total 8.4 mg/dL (8.5-10.1); Chloride 108 mmol/L (98-107); Creatinine, Serum 0.67 mg/dL (0.70-1.30); EST Glomerular Filtration Rate 126 mL/min (>60); Est Glom Filt Rate - Afr Amer 152 mL/min (>60); Glucose 114 mg/dL (74-106); Potassium 3.7 mmol/L (3.5-5.1); Sodium Level 140 mmol/L (136-145)
[2021-05-13 05:51] LABS: Bedside Glucose 117 mg/dL (70-110)
[2021-05-13 06:08] LABS: International Normalized Ratio 1.1; Prothrombin Time (Protime)PT. 13.6 SECONDS (11.7-14.9)
--- NOTE | 2021-05-13 07:09 | PCM.PN.INT ---
Assessment & Plan Assessment/Plan (1) Cardiac arrest with ventricular fibrillation: (2) History of ST elevation myocardial infarction (STEMI): (3) History of coronary artery stent placement: (4) Ischemic cardiomyopathy: (5) Diabetes type 2, uncontrolled: QUALIFIERS: Glycemic state: with hyperglycemia Qualified Code(s): E11.65 - Type 2 diabetes mellitus with hyperglycemia PLAN: RECOMMENDATIONS: 1. Consider transition to Augmentin to complete a 7-day course 2. Disposition per cardiology 3. Okay to reinitiate baseline medications 4. No outpatient pulmonary follow-up would be indicated 5. Hemodynamically stable on room air. Will sign off from a pulmonary/critical care perspective IMPRESSIONS: 1. V. fib arrest of unclear etiology with subsequent probable cardiac shock Unclear etiology of initial V. fib arrest. Patient appears to be stabilizing at this time. Patient received augmentation by intra-aortic balloon pump and Levophed initially, but these have been discontinued. Laboratory work-up is relatively unremarkable. Patient is on telemetry. Amiodarone per cardiology. Doubt septic shock as patient did not have any constitutional symptoms prior to the elective procedure. 2. Acute hypoxic respiratory failure secondary to V. fib arrest Given increase in secretions, there is some concern for possible aspiration during arrest. Given low-grade fever and sputum Gram stain, would recommend treatment for 7 days for an aspiration pneumonia. Low clinical suspicion for COVID-19 as an etiology. We will continue to support patient hemodynamically. 3. Previous MT/diabetes mellitus type 2/GERD Complicates care, management, recovery and prognosis. Okay to reinitiate baseline medications from my perspective Subjective Subjective Patient did well overnight. Patient continues to report some soreness in his right groin and a productive cough. Patient did have a slight fever overnight. Patient is not reporting any shortness of breath and has been tolerating room air. Objective Data Objective Data Vital Signs: Vital Signs Temp Pulse Resp BP Pulse Ox 37.3 C 89 20 H 131/81 H 96 05/13/21 05:00 05/13/21 06:00 05/13/21 06:00 05/13/21 06:00 05/13/21 06:00 Oxygen Flow Rate (L/min) 2 Oxygen Delivery Method Room Air Weight: 98.1 kg Body Mass Index (BMI) 30.2 Intake & Output: Intake and Output for Last 24 Hours 05/11/21 05/12/21 05/13/21 23:59 23:59 23:59 Intake Total 1167.87 / 1261.57 2253.63 / 2253.63 112 / 112 Output Total 915 / 1015 2014 875 / 875 Balance 252.87 / 246.57 238.63 / 238.63 -763 / -763 Lab / Micro Data Result Diagrams: 05/13/21 05:00 05/13/21 05:00 Labs: Laboratory Results - last 24 hr 05/12/21 06:01: POC Glucose 156 H 05/12/21 08:40: APTT 48.5 H 05/12/21 12:32: POC Glucose 106 05/12/21 17:46: POC Glucose 81 05/12/21 22:08: POC Glucose 89 05/13/21 05:00: WBC 7.9, RBC 4.37 L, Hgb 13.6, Hct 39.6 L, MCV 90.6, MCH 31.1, MCHC 34.3, RDW Std Deviation 41.3, RDW Coeff of Zully 12.5, Plt Count 145 L, MPV 9.3, Immature Gran % (Auto) 0.400, Neut % (Auto) 79.7 H, Lymph % (Auto) 10.0 L, [place] % (Auto) 9.1, Eos % (Auto) 0.4, Baso % (Auto) 0.4, Absolute Neuts (auto) 6.3, Absolute Lymphs (auto) 0.79 L, Nucleated RBC % 0 05/13/21 05:00: PT Cancelled, INR Cancelled 05/13/21 05:00: Sodium 140, Potassium 3.7, Chloride 108 H, Carbon Dioxide 25.0, Anion Gap 7, BUN 10, Creatinine 0.67 L, Estim Creat Clear Calc 113.50, Est GFR (MDRD) Af Amer 152, Est GFR (MDRD) Non-Af 126, BUN/Creatinine Ratio 14.8, Glucose 114 H, Calcium 8.4 L 05/13/21 05:44: POC Glucose 117 H 05/13/21 05:45: PT 13.6, INR 1.1 Micro: Microbiology 05/12/21 05:20 Sputum, Tracheal Aspirate Gram Stain - Final Physical Exam Const no limitations Constitutional Narrative: Awake and interactive General Appearance: cooperative, comfortable and well kempt HEENT normocephalic, head/scalp atraumatic and moist oral mucous membranes Eyes PERRL, EOMs intact bilaterally and conjunctivae normal Neck full ROM Lymph Lymphatic: no lymphadenopathy noted Chest inspection of chest normal Chest Narrative: Symmetric expansion. No crepitus. Resp normal respiratory effort and no use of accessory muscles Auscultation: rhonchi right lower; Negative for rales or wheezes Cardio regular rate, regular rhythm, S1 normal heart sound, S2 normal heart sound, no murmurs, no rub, no gallops and no JVD Cardio Narrative: Balloon pump removed GI normal to inspection, nondistended, normoactive bowel sounds Extremity no clubbing, cyanosis or edema Extremity Narrative: No significant hematomas noted. Skin General Skin Exam: Negative for fluctuance or mottling Psych mental status grossly normal, thought process normal and cooperative Charges/Coding Visit Charges Inpatient E&M: 13999 Subs Hosp L2
[2021-05-13] MEDS: Clopidogrel Bisulfate 75 MG Tablet PO (08:40)
[2021-05-13] MEDS: Pantoprazole Sodium 40 MG Tablet PO (08:40)
[2021-05-13] MEDS: Aspirin E.C. 81 MG Tablet PO (08:40)
[2021-05-13] MEDS: Lisinopril 2.5 MG Tablet PO (09:50)
[2021-05-13] MEDS: Senna/Docusate Sodium 1 Tablet 2 TABLET PO (09:50)
[2021-05-13 12:25] LABS: Bedside Glucose 98 mg/dL (70-110)
--- NOTE | 2021-05-13 14:45 | PN.HOSP_ITS ---
Subjective Subjective Feels well. Objective Data Objective Data Vital Signs: Vital Signs Temp Pulse Resp BP Pulse Ox 36.9 C 91 18 131/78 H 96 05/13/21 12:12 05/13/21 12:12 05/13/21 12:12 05/13/21 12:12 05/13/21 12:12 Oxygen Flow Rate (L/min) 2 Oxygen Delivery Method Room Air Weight: 98.1 kg Body Mass Index (BMI) 30.2 Intake & Output: Intake and Output for Last 24 Hours 05/11/21 05/12/21 05/13/21 23:59 23:59 23:59 Intake Total 1167.87 / 1261.57 2253.63 / 2253.63 472 / 472 Output Total 915 / 1015 2014 1325 / 1325 Balance 252.87 / 246.57 238.63 / 238.63 -853 / -853 Lab / Micro Data Result Diagrams: 05/13/21 05:00 05/13/21 05:00 Labs: Laboratory Results - last 24 hr 05/12/21 06:01: POC Glucose 156 H 05/12/21 17:46: POC Glucose 81 05/12/21 22:08: POC Glucose 89 05/13/21 05:00: WBC 7.9, RBC 4.37 L, Hgb 13.6, Hct 39.6 L, MCV 90.6, MCH 31.1, MCHC 34.3, RDW Std Deviation 41.3, RDW Coeff of Zully 12.5, Plt Count 145 L, MPV 9.3, Immature Gran % (Auto) 0.400, Neut % (Auto) 79.7 H, Lymph % (Auto) 10.0 L, [place] % (Auto) 9.1, Eos % (Auto) 0.4, Baso % (Auto) 0.4, Absolute Neuts (auto) 6.3, Absolute Lymphs (auto) 0.79 L, Nucleated RBC % 0 05/13/21 05:00: PT Cancelled, INR Cancelled 05/13/21 05:00: Sodium 140, Potassium 3.7, Chloride 108 H, Carbon Dioxide 25.0, Anion Gap 7, BUN 10, Creatinine 0.67 L, Estim Creat Clear Calc 113.50, Est GFR (MDRD) Af Amer 152, Est GFR (MDRD) Non-Af 126, BUN/Creatinine Ratio 14.8, Glucose 114 H, Calcium 8.4 L 05/13/21 05:44: POC Glucose 117 H 05/13/21 05:45: PT 13.6, INR 1.1 05/13/21 12:18: POC Glucose 98 Micro: Microbiology 05/12/21 05:20 Sputum, Tracheal Aspirate Gram Stain - Final 05/12/21 05:20 Sputum, Tracheal Aspirate Respiratory Culture - Preliminary Staphylococcus aureus Physical Exam Const alert Resp normal respiratory effort, no retractions, no use of accessory muscles and clear to auscultation bilaterally Cardio regular rate, regular rhythm, S1 normal heart sound and S2 normal heart sound GI normal to inspection, nondistended, normoactive bowel sounds, soft to palpation, non-tender and non-distended Assessment & Plan Assessment/Plan (1) Cardiac arrest with ventricular fibrillation: PLAN: 1. V. fib arrest * During cardiac catheterization * Successfully resuscitated * Balloon pump to be removed today. * On norepinephrine * On amiodarone * Additional management per cardiology and [facility] * Defer the need to transfer and facilitating transfer to cardiology 2. Acute hypoxic respiratory failure * Secondary to cardiac arrest * Intubated in the [facility], extubated 05/12 3. Cardiogenic shock * Status post V. fib arrest and ROSC * Balloon pump out and off of all pressors. 4. NSTEMI * Likely due to CPR versus V. fib arrest * Management per cardiology * No obstructive coronary disease on cardiac catheterization * Pt to have Stress as outpt. 5. Coronary artery disease * Known PCI with RCA stent * Continue aspirin, clopidogrel, atorvastatin. 6. Diabetes mellitus type 2 * Metformin held given the recent contrast load * Sliding Scale insulin 7. VTE prophylaxis: Not indicated given patient currently anticoagulated 8. CODE STATUS: Previous addressed per cardiology. Full code.. Charges/Coding Visit Charges Inpatient E&M: 24232 Subs Hosp L2
--- NOTE | 2021-05-13 14:48 | PN.CARD_ITS ---
Subjective Subjective Seen and evaluated today at bedside along with the nursing staff Comfortable no symptoms reported, apart from mild discomfort in the right groin No chest pain no dizziness or palpitation Objective Data Vital Signs: Vital Signs Temp Pulse Resp BP Pulse Ox 98.4 F 91 18 131/78 H 96 05/13/21 12:12 05/13/21 12:12 05/13/21 12:12 05/13/21 12:12 05/13/21 12:12 Oxygen Flow Rate (L/min) 2 Oxygen Delivery Method Room Air Weight: 216 lb 4.375 oz Body Mass Index (BMI) 30.2 Intake & Output: Intake and Output for Last 24 Hours 05/11/21 05/12/21 05/13/21 23:59 23:59 23:59 Intake Total 1167.87 / 1261.57 2253.63 / 2253.63 472 / 472 Output Total 915 / 1015 2014 1325 / 1325 Balance 252.87 / 246.57 238.63 / 238.63 -853 / -853 Lab / Micro Data Result Diagrams: 05/13/21 05:00 05/13/21 05:00 Labs: Laboratory Results - last 24 hr 05/12/21 06:01: POC Glucose 156 H 05/12/21 17:46: POC Glucose 81 05/12/21 22:08: POC Glucose 89 05/13/21 05:00: WBC 7.9, RBC 4.37 L, Hgb 13.6, Hct 39.6 L, MCV 90.6, MCH 31.1, MCHC 34.3, RDW Std Deviation 41.3, RDW Coeff of Zully 12.5, Plt Count 145 L, MPV 9.3, Immature Gran % (Auto) 0.400, Neut % (Auto) 79.7 H, Lymph % (Auto) 10.0 L, [place] % (Auto) 9.1, Eos % (Auto) 0.4, Baso % (Auto) 0.4, Absolute Neuts (auto) 6.3, Absolute Lymphs (auto) 0.79 L, Nucleated RBC % 0 05/13/21 05:00: PT Cancelled, INR Cancelled 05/13/21 05:00: Sodium 140, Potassium 3.7, Chloride 108 H, Carbon Dioxide 25.0, Anion Gap 7, BUN 10, Creatinine 0.67 L, Estim Creat Clear Calc 113.50, Est GFR (MDRD) Af Amer 152, Est GFR (MDRD) Non-Af 126, BUN/Creatinine Ratio 14.8, Glucose 114 H, Calcium 8.4 L 05/13/21 05:44: POC Glucose 117 H 05/13/21 05:45: PT 13.6, INR 1.1 05/13/21 12:18: POC Glucose 98 Micro: Microbiology 05/12/21 05:20 Sputum, Tracheal Aspirate Gram Stain - Final 05/12/21 05:20 Sputum, Tracheal Aspirate Respiratory Culture - Preliminary Staphylococcus aureus Cardiology Labs/Tests 05/13/21 05:00: WBC 7.9, RBC 4.37 L, Hgb 13.6, Hct 39.6 L, MCV 90.6, MCH 31.1, MCHC 34.3, Plt Count 145 L, MPV 9.3, Immature Gran % (Auto) 0.400, Neut % (Auto) 79.7 H, Lymph % (Auto) 10.0 L, [place] % (Auto) 9.1, Eos % (Auto) 0.4, Baso % (Auto) 0.4, Absolute Neuts (auto) 6.3, Nucleated RBC % 0 05/13/21 05:00: PT Cancelled, INR Cancelled 05/13/21 05:00: Sodium 140, Potassium 3.7, Chloride 108 H, Carbon Dioxide 25.0, Anion Gap 7, BUN 10, Creatinine 0.67 L, Est GFR (MDRD) Af Amer 152, Est GFR (MDRD) Non-Af 126, BUN/Creatinine Ratio 14.8, Glucose 114 H, Calcium 8.4 L 05/13/21 05:45: PT 13.6, INR 1.1 Rhythm: Normal sinus rhythm Physical Exam Narrative Comfortable in bed not in acute distress 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 Assessment & Plan Assessment/Plan (1) Old inferior wall myocardial infarction: (2) History of ST elevation myocardial infarction (STEMI): (3) History of coronary artery stent placement: (4) Essential (primary) hypertension: (5) Diabetes type 2, uncontrolled: QUALIFIERS: Glycemic state: with hyperglycemia Qualified Code(s): E11.65 - Type 2 diabetes mellitus with hyperglycemia (6) Cardiac arrest with ventricular fibrillation: PLAN: 66-year-old patient with history of CAD History of ST elevation myocardial infarction in October 162019 Has PCI and stent of the RCA. Patient underwent elective cardiac catheterization which showed intermediate lesion in the mid LAD involving 2 side branches D1 and D2 Plan evaluation by IFR patient has episode of V. fib with cardiac arrest resuscitated in the [facility] Has intra-aortic balloon pump placed, patency of the RCA stent demonstrated and , still have intermediate lesion in the mid LAD with no flow limitation and no evidence of dissection Recovered very well and transferred today to the progressive care unit. Reviewed echocardiogram which showed similar ejection fraction as previous With EF in the range of 40-45% with inferior hypokinesia likely secondary to his prior inferior CO in October 2019, no new segmental wall motion abnormality I reviewed all the current lab as well as his current medication, will continue dual antiplatelet therapy with Plavix and aspirin, patient is on a statin, KAZ inhibitor Added low-dose carvedilol. Cardiac recommendation and plan; 1. We will continue medical therapy 2. We will follow-up with the primary community relations assistant Dr. Weber will plan, evaluating with adenosine sestamibi myocardial perfusion study as an outpatient.
[2021-05-13 17:35] LABS: Bedside Glucose 89 mg/dL (70-110)
[2021-05-13] MEDS: Carvedilol 3.125 MG TABLET PO (20:34)
[2021-05-13] MEDS: Amox/Clavulanate 875 MG Tablet PO (20:34)
[2021-05-13] MEDS: Atorvastatin Calcium 40 MG Tablet PO (20:34)
[2021-05-13] MEDS: Baclofen 10 MG Tablet PO (20:34)
[2021-05-14 00:51] LABS: Bedside Glucose 119 mg/dL (70-110)
[2021-05-14 02:15] VITALS: PULSE 77
[2021-05-14 03:10] VITALS: BP 137/85; PULSE 75; RESP 16; TEMP 36.8; O2SAT 92
[2021-05-14 05:31] LABS: Bedside Glucose 145 mg/dL (70-110)
[2021-05-14 07:04] VITALS: PULSE 88
[2021-05-14 08:19] VITALS: BP 124/71; PULSE 88; RESP 16; TEMP 37.1; O2SAT 100
[2021-05-14] MEDS: Pantoprazole Sodium 40 MG Tablet PO (08:23)
[2021-05-14] MEDS: Lisinopril 2.5 MG Tablet PO (08:23)
[2021-05-14] MEDS: Senna/Docusate Sodium 1 Tablet 2 TABLET PO (08:23)
[2021-05-14] MEDS: Clopidogrel Bisulfate 75 MG Tablet PO (08:23)
[2021-05-14] MEDS: Carvedilol 3.125 MG TABLET PO (08:23)
[2021-05-14] MEDS: Aspirin E.C. 81 MG Tablet PO (08:24)
[2021-05-14] MEDS: Amox/Clavulanate 875 MG Tablet PO (08:24)
--- NOTE | 2021-05-14 08:28 | DCINST_ITS ---
Discharge Instructions Diet Discharge Diet: Low fat / Low cholesterol Activity Discharge Activity: Return to Normal Activity Weight Bearing Status: Full weight bearing Lifting Restrictions: 20 pounds Dressing / Incision Call your doctor if you observe: Shortness of breath, Fainting spells and Chest pain Follow Up Care Test Results: Test results from this visit will be discussed in further detail at your follow-up appointment, if applicable. Discharge Plan Admission Admit Date/Time: 05/11/21 12:07 Primary Reason for Your Visit: Ventricular fibrillation arrest Attending Provider: Juventino Weber Primary Care Provider: Tamar Atwood NP Consulting Providers: Kip Faith MAINFRAME SOFTWARE DEVELOPER ; Neetu Tipton ; Katherine Vega ; Jabier Rosas ; Sharon Gallegos ; Michael Saleh ; Salvador Samson ; Donald Butcher ; Ismael Felix ; Genevieve Felix ; Mehrdad Ayala ; Gavin Machado ; Anthony Gallego ; Muriel Cleary ; Waqar Keys ; Cindy Mo ; Meir Gamboa ; Chema Payne ; Dylan Lopez ; Gil Pacheco ; Lolita Wilson MAINFRAME SOFTWARE DEVELOPER ; Jessica Nguyen ; Collette Spence NP ; Waqar Hernandez NP ; Leela Ohara ; Tasha Toribio ; Mason Meier ; Rodriguez Hassan ; Karla Seo MAINFRAME SOFTWARE DEVELOPER Discharge Orders/Prescriptions Prescriptions: New carvedilol 3.125 mg Tablet 3.125 mg PO BID Qty: 60 RF: 0 amoxicillin-pot clavulanate [Augmentin] 875-125 mg tablet 1 tab PO BID Qty: 10 RF: 0 Continued clopidogrel 75 mg tablet 75 mg PO DAILY Qty: 90 RF: 3 aspirin [Adult Aspirin Regimen] 81 mg tablet,delayed release (DR/EC) 81 mg PO DAILY RF: 0 atorvastatin 40 mg tablet 40 mg PO QHS Qty: 90 RF: 3 Jardiance 25 mg tablet 25 mg PO DAILY Qty: 90 RF: 3 lisinopril 2.5 mg tablet 2.5 mg PO DAILY Qty: 90 RF: 3 metformin 500 mg tablet 500 mg PO BID Qty: 180 RF: 3 esomeprazole magnesium 40 mg capsule,delayed release(DR/EC) 40 mg PO DAILY Qty: 90 RF: 3 baclofen 10 mg tablet 10 mg PO QHS Qty: 30 RF: 12 Discontinued metoprolol tartrate 25 mg tablet 12.5 mg PO BID Qty: 90 RF: 3 No Action (DME) blood-glucose meter [Accu-Chek Guide Glucose Meter] Misc See Rx Instructions .ROUTE .MEDSUPPLY Qty: 1 RF: 0 (DME) lancets [Accu-Chek Fastclix Lancet Drum] Misc See Rx Instructions .ROUTE .MEDSUPPLY Qty: 100 RF: 12 (DME) Accu-Chek Guide test strips Strip See Rx Instructions .ROUTE .COMPLEX Qty: 90 RF: 12 Referrals / Follow Up: Tamar Atwood NP, MAINFRAME SOFTWARE DEVELOPER-C [Primary Care Provider] - Disposition Disposition (needs filled in before D/C Order can be placed): Home, Self Care
--- NOTE | 2021-05-14 08:34 | PCM.DC.SUM ---
Providers Date of Admission: 05/11/21 Primary Care Physician: DIANA Pedro Consultations 05/11/21 12:26 Consult: Hospitalist Routine Consulting Provider: Farida Calvin Reason for Consult: medical management EMERGENT Consult: No MD Notified: Yes Date Notified: 05/11/21 Time Notified: 12:19 Method of Notification: Verbal Consult: Manager Market / Pulmonary Medicine Routine Consulting Provider: [facility] [place] Reason for Consult: managment of ventilator and hemodynamic EMERGENT Consult: No MD Notified: Yes Date Notified: 05/11/21 Time Notified: 12:14 Method of Notification: Verbal Reason For Visit: ABN STRESS TEST, CAD, CHEST PAIN/INT LAB AND RAD Diagnosis Discharge Diagnosis (1) Cardiac arrest with ventricular fibrillation: Status: Acute Code(s): I46.9 - Cardiac arrest, cause unspecified; I49.01 - Ventricular fibrillation (2) Acute respiratory failure with hypoxia: Status: Acute Code(s): J96.01 - Acute respiratory failure with hypoxia (3) Cardiogenic shock: Status: Acute Code(s): R57.0 - Cardiogenic shock (4) NSTEMI, initial episode of care: Status: Acute Code(s): I21.4 - Non-ST elevation (NSTEMI) myocardial infarction Medications at Discharge Home Medications aspirin 81 mg tablet,delayed release 81 mg PO DAILY 10/22/19 blood-glucose meter #1 ea 10/22/19 lancets #100 ea 10/22/19 atorvastatin 40 mg tablet 40 mg PO QHS #90 tab 10/12/20 baclofen 10 mg tablet 10 mg PO QHS #30 tab 10/12/20 empagliflozin 25 mg tablet 25 mg PO DAILY #90 tab 10/12/20 esomeprazole magnesium 40 mg capsule,delayed release 40 mg PO DAILY #90 cap 10/12/20 lisinopril 2.5 mg tablet 2.5 mg PO DAILY #90 tab 10/12/20 metformin 500 mg tablet 500 mg PO BID #180 tab 10/12/20 clopidogrel 75 mg tablet 75 mg PO DAILY #90 tab 10/21/20 blood sugar diagnostic #90 strip 02/06/21 amoxicillin-pot clavulanate [Augmentin] 1 tab PO BID #10 tab 05/14/21 carvedilol 3.125 mg PO BID #60 tab 05/14/21 Hospital Course Operations None Procedures 2-D Echocardiogram, Cardiac catheterization and Intubation Summary of Care Provided Minutes Spent on Discharge: 32 Hospital Course: Is the patient that was undergoing an elective cardiac catheterization and then went into ventricular fibrillation arrest. This was during the cardiac catheterization. Patient was successfully resuscitated but did require chest compressions shocks and epinephrine. Patient was intubated in the [facility]. [facility] showed no obstructive coronary disease. Discussion with Dr. Doran reviewed that the patient went into V. fib arrest during the cardiac catheterization with the instrumentation. Patient had no further events during the catheterization nor afterwards on the floor. Patient had V. fib arrest with a cardiac catheterization in [facility] previously. No need for any stents at this time. Patient will follow up with his primary sort line for a stress test as outpatient. Patient did have cardiogenic shock and did require norepinephrine as well as a balloon pump. He has done fine since then. Patient medications have been changed from metoprolol over to carvedilol. Patient will continue with his other home medications as previous. Patient did have a non-ST patient myocardial infarction but this is likely due to the V. fib arrest and cardiopulmonary resuscitation. Once again, patient had no obstructive coronary disease. Physical Exam Const alert and no apparent distress Resp normal respiratory effort, no retractions, no use of accessory muscles and clear to auscultation bilaterally Cardio regular rate, regular rhythm, S1 normal heart sound and S2 normal heart sound Weight / BMI Weight Weight: 93.1 kg Body Mass Index (BMI) 30.2 ABG / Lab / Microbiology Data Result Diagrams: 05/13/21 05:00 05/13/21 05:00 Laboratory: Laboratory Results - last 24 hr 05/13/21 12:18: POC Glucose 98 05/13/21 17:27: POC Glucose 89 05/14/21 00:41: POC Glucose 119 H 05/14/21 05:27: POC Glucose 145 H Microbiology: Microbiology 05/12/21 05:20 Sputum, Tracheal Aspirate Gram Stain - Final 05/12/21 05:20 Sputum, Tracheal Aspirate Respiratory Culture - Preliminary Staphylococcus aureus D/C Instructions Discharge Diet: Low fat / Low cholesterol Weight Bearing Status: Full weight bearing Call your doctor if you observe: Shortness of breath, Fainting spells and Chest pain Meaningful Use Info Meaningful Use Diagnoses (Choose all that apply): AMI AMI/Post PCI/Angioplasty Aspirin given w/in 24hrs of arrival?: Yes ASA at discharge?: Yes Statins at discharge?: Yes Jamel/ARB at discharge?: Yes Beta Rony at discharge?: Yes Done w/ Acute [place] measure.: Yes Discharge Plan Admission Admit Date/Time: 05/11/21 12:07 Primary Reason for Your Visit: Ventricular fibrillation arrest Attending Provider: Juventino Weber Primary Care Provider: Tamar Atwood NP Consulting Providers: Kip Faith NP ; Neetu Tipton ; Katherine Vega ; Jabier Rosas ; Sharon Gallegos ; Michael Saleh ; Salvador Samson ; Donald Butcher ; Ismael Felix ; Genevieve Felix ; Mehrdad Ayala ; Gavin Machado ; Anthony Gallego ; Muriel Cleary ; Waqar Keys ; Cindy Mo ; Meir Gamboa ; Chema Payne ; Dylan Lopez ; Gil Pacheco ; Lolita Wilson DATA WAREHOUSING SPECIALIST ; Jessica Nguyen ; Collette Spence NP ; Waqar Hernandez NP ; Leela Ohara ; Tasha Toribio ; Mason Meier ; Rodriguez Hassan ; Karla Seo DATA WAREHOUSING SPECIALIST Instructions Additional Instructions / Restrictions: Patient Problems: Altered Health Status related to Hospitalization Patient Goals: *Optimal Level of Health *Keep Appointments *Medication Compliance *Remain Safe Discharge Orders/Prescriptions Prescriptions: New carvedilol 3.125 mg Tablet 3.125 mg PO BID Qty: 60 RF: 0 amoxicillin-pot clavulanate [Augmentin] 875-125 mg tablet 1 tab PO BID Qty: 10 RF: 0 Continued clopidogrel 75 mg tablet 75 mg PO DAILY Qty: 90 RF: 3 aspirin [Adult Aspirin Regimen] 81 mg tablet,delayed release (DR/EC) 81 mg PO DAILY RF: 0 atorvastatin 40 mg tablet 40 mg PO QHS Qty: 90 RF: 3 Jardiance 25 mg tablet 25 mg PO DAILY Qty: 90 RF: 3 lisinopril 2.5 mg tablet 2.5 mg PO DAILY Qty: 90 RF: 3 metformin 500 mg tablet 500 mg PO BID Qty: 180 RF: 3 esomeprazole magnesium 40 mg capsule,delayed release(DR/EC) 40 mg PO DAILY Qty: 90 RF: 3 baclofen 10 mg tablet 10 mg PO QHS Qty: 30 RF: 12 Discontinued metoprolol tartrate 25 mg tablet 12.5 mg PO BID Qty: 90 RF: 3 No Action (DME) blood-glucose meter [Accu-Chek Guide Glucose Meter] Misc See Rx Instructions .ROUTE .MEDSUPPLY Qty: 1 RF: 0 (DME) lancets [Accu-Chek Fastclix Lancet Drum] Misc See Rx Instructions .ROUTE .MEDSUPPLY Qty: 100 RF: 12 (DME) Accu-Chek Guide test strips Strip See Rx Instructions .ROUTE .COMPLEX Qty: 90 RF: 12 Referrals / Follow Up: Tamar Atwood NP, DATA WAREHOUSING SPECIALIST-C [Primary Care Provider] - Disposition Disposition (needs filled in before D/C Order can be placed): Home, Self Care Charges/Coding Visit Charges Inpatient E&M: 06630 Disch Hosp
== END 2021-05-14 13:04 | disposition home or self-care (01) | DRG 270 ==
LOC: CLSP 13:33 → ICU 18:02 → PCU 05-13 11:44
PROVIDERS: Internal Medicine Critical Care Medicine; Nurse Practitioner Family; Admitting Provider Internal Medicine Interventional Cardiology; PCP Nurse Practitioner; Referring Provider Internal Medicine Cardiovascular Disease; Visit Provider Internal Medicine Cardiovascular Disease
DX: I49.01 Ventricular fibrillation (principal); I21.9 Acute myocardial infarction, unspecified; J96.01 Acute respiratory failure with hypoxia; I25.110 Atherosclerotic heart disease of native coronary artery with unstable angina pectoris; I25.5 Ischemic cardiomyopathy; E11.65 Type 2 diabetes mellitus with hyperglycemia; I46.9 Cardiac arrest, cause unspecified; K21.9 Gastro-esophageal reflux disease without esophagitis; I10 Essential (primary) hypertension; Z79.899 Other long term (current) drug therapy; Z79.82 Long term (current) use of aspirin; Z79.84 Long term (current) use of oral hypoglycemic drugs; Z79.02 Long term (current) use of antithrombotics/antiplatelets; Z87.891 Personal history of nicotine dependence; I25.2 Old myocardial infarction
CPT/HCPCS: 31500; 31720; 33967; 36415; 71045; 71046; 80048; 80053; 82803; 82962; 83605; 84484; 85025; 85610; 85730; 87070; 87077; 87186; 87205; 92950; 93308; 93458; 94002; 94003; 94660; 99152; 99153; 99251; J0153; J2997; J7030; J7040; J7050; J7120; Q9967; A4216; C1769; C1887; C1894; G0463; J0295; J3010

== ENCOUNTER 2021-10-06 23:09 | Outpatient (CLI) | payer MEDICARE, SELFPAY ==
[2021-10-06 23:19] LABS: Absolute Neutrophil Count 4.1 X10^3/uL (2.0-7.7); Basophil# 0.07 X10^3/uL; Eosinophil# 0.06 X10^3/uL; Eosinophils% 0.9 % (0-5); Hematocrit 41.6 % (40-54); Hemoglobin 14.3 g/dL (13.0-16.5); Mean Corp Hgb Conc 34.4 g/dL (32-36); Mean Corpuscular Volume 90.2 fL (80-94); Mean Platelet Vol. 9.6 fl (6.2-12.0); Monocyte# 0.59 X10^3/uL; Monocyte% 8.8 % (0-10); NRBC Flagged by Analyzer 0 % (0-5); Neutrophil # 4.11 X10^3/uL (2.7-7.7); Neutrophil % 61.7 % (47-70); Platelet Count 237 K/mm3 (150-450); RBC Distribution Width CV 13.5 % (11.6-14.6); RBC Distribution Width SD 43.8 fl (35.1-43.9); Red Blood Count 4.61 M/mm3 (4.6-6.2); White Blood Count 6.7 K/mm3 (4.4-11.0)
[2021-10-06 23:39] LABS: ALB/GLOB Ratio 1.2 RATIO (0.9-2.4); AST(SGOT) 19 U/L (15-37); Alanine Aminotransfer ALT/SGPT 24 U/L (16-61); Albumin, Serum 3.7 g/dL (3.2-5.0); Alkaline Phosphatase 87 U/L (45-117); Anion Gap 2 (5-15); BUN 13 mg/dL (7-18); BUN/Creat Ratio 14.2 RATIO (10-20); Calcium,Total 9.4 mg/dL (8.5-10.1); Chloride 107 mmol/L (98-107); Cholesterol 168 mg/dL (200); Creatinine, Serum 0.92 mg/dL (0.70-1.30); EST Glomerular Filtration Rate 88 mL/min (>60); Est Glom Filt Rate - Afr Amer 107 mL/min (>60); Globulin 3.2 g/dL (2.2-4.2); Glucose 90 mg/dL (74-106); High Density Lipoprotein 31 mg/dL; PSA,Total- Diagnostic 0.86 ng/mL (0.0-4.0); Potassium 4.3 mmol/L (3.5-5.1); Protein, Total 6.9 g/dL (6.4-8.2); Sodium Level 139 mmol/L (136-145); Triglycerides 170 mg/dL; Very Low Density Lipoprotein 34 mg/dL (5-40)
[2021-10-06 23:47] LABS: Hemoglobin A1c 6.6 % (3.8-5.6)
== END 2021-10-06 23:59 | disposition home or self-care (01) ==
PROVIDERS: PCP Nurse Practitioner; Visit Provider Nurse Practitioner
DX: I10 Essential (primary) hypertension (principal); E11.65 Type 2 diabetes mellitus with hyperglycemia; E78.5 Hyperlipidemia, unspecified; R35.0 Frequency of micturition
CPT/HCPCS: 80053; 80061; 83036; 84153; 85025

== ENCOUNTER 2021-11-03 09:20 | Outpatient (CLI) | payer MEDICARE, SELFPAY ==
--- NOTE | 2021-11-03 09:24 | RAD_ITS ---
History: pains in both arms in bed at night sleeping only Cervical spine 7 views: Findings: No fracture or subluxation. Narrowing of the C5-6 disc space associated with vertebral body spurring. Uncinate joint hypertrophy at the C5-6 level causes mild neural foraminal narrowing bilaterally. Neuro foraminal narrowing on the right at C3-4 related to facet joint arthropathy and uncinate joint hypertrophy. Precervical soft tissues are normal. IMPRESSION:Spondylosis as described. at 1041 Reported and signed by: Alex Sheriff MD Electronically Signed: Alex Sheriff MD at 10:40 EDT , RAD/Cerv Spine 4 or 5 Views
== END 2021-11-03 23:59 | disposition home or self-care (01) ==
LOC: RAD 09:23
PROVIDERS: PCP Nurse Practitioner; Referring Provider Nurse Practitioner; Visit Provider Nurse Practitioner
DX: M54.10 Radiculopathy, site unspecified (principal)
CPT/HCPCS: 72050

== ENCOUNTER 2021-11-23 06:53 | Outpatient (CLI) | payer MEDICARE, SELFPAY | END 2021-11-23 23:59 | disposition home or self-care (01) | LOC: MRI 06:54 | PROVIDERS: PCP Nurse Practitioner; Referring Provider Orthopaedic Surgery; Visit Provider Orthopaedic Surgery | DX: M50.20 Other cervical disc displacement, unspecified cervical region (principal) ==

== ENCOUNTER → 2022-03-08 | Outpatient (CLI) | payer MEDICARE, SELFPAY ==
--- NOTE | 2022-03-08 06:12 | ECHOD_ITS ---
Reason For Study: Cardiomyopathy Procedure This was a 2D Doppler, Color Flow transthoracic echocardiogram. Exam performed in department. Left Ventricle Normal LV size. Left ventricular systolic function is normal. The estimated ejection fraction is 60 %. No regional wall motion abnormalities noted. Right Ventricle Normal RV size. Normal systolic function. Atria Normal left atrium. Normal right atrium. Mitral Valve Normal mitral valve. Tricuspid Valve Normal tricuspid valve. Mild tricuspid valve insufficiency. Pulmonary artery systolic pressure is 23 mmHg. Aortic Valve Normal aortic valve. Trisinus/trileaflet aortic valve. Mild (1+) aortic valve insufficiency. Pulmonic Valve Normal pulmonic valve. Great Vessels Normal aortic root. The pulmonary artery is normal size. Normal inferior vena cava. Pericardium/Pleural No pericardial effusion. MMode/2D Measurements & Calculations LVIDd: 5.4 cm IVSd: 0.98 cm Ao root diam: 3.4 cm LVIDs: 3.8 cm LVPWd: 0.86 cm LA dimension: 3.9 cm RVDd: 3.9 cm FS: 30.3 % LAV(MOD-bp): 59.2 ml LA A4 area: 18.7 cm2 RA A4 area: 14.5 cm2 LAV(MOD-bp) Indexed: 27.5 ml/m2 LAV(MOD-sp2): 65.8 ml LAV(MOD-sp4): 52.0 ml Time Measurements MV dec time: 0.18 sec Doppler Measurements & Calculations MV E max daphney: 70.1 cm/sec MV V2 max: 92.0 cm/sec MV P1/2t max daphney: 92.7 cm/sec MV A max daphney: 58.9 cm/sec MV max P.4 mmHg MV P1/2t: 70.3 msec MV E/A: 1.2 MV V2 mean: 49.2 cm/sec MV dec slope: 386.2 cm/sec2 MV mean P.2 mmHg MVA(P1/2t): 3.1 cm2 MV V2 VTI: 26.9 cm Ao V2 max: 107.2 cm/sec AI max daphney: 252.5 cm/sec LV V1 max: 88.2 cm/sec Ao max P.6 mmHg AI max P.5 mmHg LV V1 max P.1 mmHg AI dec slope: 80.1 cm/sec2 AI P1/2t: 923.6 msec PA V2 max: 123.5 cm/sec PI end-d daphney: 128.7 cm/sec TR max daphney: 224.2 cm/sec TR max P.1 mmHg ECHO/Echo Complete Interpretation Summary Normal LV size. Left ventricular systolic function is normal. The estimated ejection fraction is 60 %. Mild (1+) aortic valve insufficiency. Compared to previous study, the left ventricular systolic function has improved .. Ordering Physician: Amarilis James Referring Physician: Tamar Atwood RELIEF CAPTAIN-C Performed By: Ramon Lopez RCS
--- NOTE | 2022-03-08 16:37 | STRESSREP_ITS ---
Stress Test Report Exercise myocardial perfusion stress test. 66-year-old male with a history of coronary artery disease. Stress protocol: Resting EKG demonstrates sinus bradycardia with a rate of 59 bpm normal intervals are noted resting blood pressure is 154/90 mmHg. The patient exercised according to the regular Mason protocol for total duration of 9 antonio cynthia completing stage III of the Mason protocol the maximum heart rate attained was 126 bpm which was 81% of max impacted heart rate the maximum workload was 10.3 metabolic equivalents. At rest there were no ST or T wave changes noted to suggest ischemia and at peak exercise upsloping ST changes were noted which did not meet the criteria for ischemia. No clinical angina was noted. The test was terminated due to the target heart rate being achieved. The peak blood pressure was 210/92 mmHg. Myocardial perfusion protocol. 14.8 mCi of technetium 99m sestamibi was injected today at rest. Patient exercised according to regular Mason protocol for total duration of 9 minutes. At peak exercise 44.5 mCi of technetium 99m sestamibi was injected stress images were obtained stress and rest images were reconstructed and compared in the short axis vertical long and horizontal long axis. Gated images were also obtained. Perfusion SPECT analysis: Review of the stress images demonstrate a medium size defect noted involving the basal to mid inferior wall. There is reduction of the mid to distal anterior wall also noted. The resting images demonstrate a similar pattern in the inferior wall with possible minimal sisi-infarct ischemia the anterior wall defect appears to be similar. No significant ischemia is noted. Gated SPECT analysis: The gated ejection fraction is 60%. Conclusion: Exercise myocardial perfusion stress test with no significant ischemia noted at a high workload. Previous basal inferior and distal anterior infarct noted.
== END | disposition home or self-care (01) ==
PROVIDERS: PCP Nurse Practitioner; Referring Provider Nurse Practitioner Gerontology; Visit Provider Nurse Practitioner Gerontology
DX: I25.5 Ischemic cardiomyopathy (principal); R07.9 Chest pain, unspecified; Z95.5 Presence of coronary angioplasty implant and graft
CPT/HCPCS: 78452; 93017; 93306; A9500; A4216

== ENCOUNTER → 2022-10-18 | Outpatient (CLI) | payer MEDICARE, SELFPAY ==
[2022-10-18 21:03] LABS: Absolute Lymphocyte Count 1.74 X10^3/uL (0.83-4.51); Basophil# 0.04 X10^3/uL; Basophil% 0.5 % (0-1); Eosinophil# 0.09 X10^3/uL; Eosinophils% 1.2 % (0-5); Hematocrit 46.3 % (40-54); Hemoglobin 15.8 g/dL (13.0-16.5); Lymphocyte # 1.74 X10^3/ul (0.83-4.51); Lymphocyte % 23.4 % (19-41); Mean Corp Hgb Conc 34.1 g/dL (32-36); Mean Corpuscular Hgb 31.8 pg (27.0-32.0); Mean Corpuscular Volume 93.2 fL (80-94); Mean Platelet Vol. 9.8 fl (6.2-12.0); Monocyte# 0.58 X10^3/uL; Monocyte% 7.8 % (0-10); NRBC Flagged by Analyzer 0 % (0-5); Neutrophil # 4.98 X10^3/uL (2.7-7.7); Neutrophil % 66.8 % (47-70); Platelet Count 225 K/mm3 (150-450); RBC Distribution Width CV 12.4 % (11.6-14.6); RBC Distribution Width SD 42.6 fl (35.1-43.9); Red Blood Count 4.97 M/mm3 (4.6-6.2); White Blood Count 7.5 K/mm3 (4.4-11.0)
[2022-10-18 21:20] LABS: ALB/GLOB Ratio 1.2 RATIO (0.9-2.4); AST(SGOT) 16 U/L (15-37); Alanine Aminotransfer ALT/SGPT 33 U/L (16-61); Albumin, Serum 3.8 g/dL (3.2-5.0); Alkaline Phosphatase 76 U/L (45-117); Anion Gap 8 (5-15); BUN 15 mg/dL (7-18); BUN/Creat Ratio 13.8 RATIO (10-20); CRP, High Sensitivity Cardiac 0.67 mg/L; Calcium,Total 8.9 mg/dL (8.5-10.1); Chloride 104 mmol/L (98-107); Cholesterol 157 mg/dL (200); Creatinine, Serum 1.09 mg/dL (0.70-1.30); EST Glomerular Filtration Rate 72 mL/min (>60); Est Glom Filt Rate - Afr Amer 87 mL/min (>60); Globulin 3.1 g/dL (2.2-4.2); Glucose 135 mg/dL (74-106); High Density Lipoprotein 34 mg/dL; PSA,Total - Annual Screen 0.86 ng/mL (0.00-4.00); Potassium 4.1 mmol/L (3.5-5.1); Protein, Total 6.9 g/dL (6.4-8.2); Sodium Level 140 mmol/L (136-145); Triglycerides 288 mg/dL; Very Low Density Lipoprotein 58 mg/dL (5-40)
[2022-10-18 21:38] LABS: Hemoglobin A1c 5.9 % (3.8-5.6)
== END | disposition home or self-care (01) ==
PROVIDERS: PCP Nurse Practitioner; Visit Provider Nurse Practitioner
DX: I10 Essential (primary) hypertension (principal); E11.65 Type 2 diabetes mellitus with hyperglycemia; E78.5 Hyperlipidemia, unspecified; R35.0 Frequency of micturition; I25.2 Old myocardial infarction; Z12.5 Encounter for screening for malignant neoplasm of prostate
CPT/HCPCS: 80053; 80061; 83036; 84153; 85025; 86141; G0103

== ENCOUNTER → 2023-08-23 | Outpatient (CLI) | payer MEDICARE, SELFPAY ==
--- OUTSIDE RECORDS SUMMARY | 2023-08-23 22:17 | XMS RPT_ITS | CCD ---
Author Name Unknown Address [address] [place] [address] Organization [facility] Results Test Name Value Interpretation Reference Range Facil ity Progress note 05-17-2021 Note Date & Type Note Facility 05-17-2021 Note HNO ID: [id number] Author: VIRGEN Rouse) Service: ? Author Type: Technologist Type: Progress Notes Filed: 05/17/2021 8:54 AM Note Text: Radiology Service Progress Note PATIENT NAME: Sharif Fatima DATE OF SERVICE: May 17, 2021 TIME: 8:54 AM PATIENT IDENTITY VERIFICATION COMPLETED USING TWO (2) IDENTIFIERS: Name and Date of confirmed by patient verbally. FALL SCREENING: Has the patient had 2 falls in the last year or 1 fall with injury or currently using an Ambulatory Assistive Device (Walker, Cane, Wheelchair, Crutches, etc.)? No PATIENT GENDER DATA: Male PATIENT RELEVANT IMPLANT DATA REVIEWED: Not Applicable RADIOLOGY DEPARTMENT: General X-ray: Exam(s) Completed: Chest X-Ray PERIPHERAL IV DATA: Not applicable SIGNED BY: RT Nasim(Samantha) May 17, 2021 8:54 AM [facility] Summary Purpose Family History No Family History Records FoundNo Family History Records FoundNo Family History Records FoundNo Family History Records Found Advance Directives No Advanced Directives Records FoundNo Advanced Directives Records FoundNo Advanced Directives Records FoundNo Advanced Directives Records Found Additional Source Comments (unrecognized sect ion and content) No Status Records FoundNo Status Records FoundNo Status Records FoundNo Status Records Found INFORMATION SOURCE (unrecogn ized section and content) DATE CREATED AUTHOR AUTHOR'S ORGANIZ ATION 05/18/2021 [facility] DATE CREATED AUTHOR AUTHOR'S ORGANIZ ATION 09/27/2021 [facility] DATE CREATED AUTHOR AUTHOR'S ORGANIZ ATION 12/20/2021 [facility] dical Specialist FOR RECORDS PERTAINING TO PATIENTS WHO ARE OR HAVE BEEN ENROLLED IN A CHEMICAL DEPENDENCY/SUBSTANCEABUSE PROGRAM, SOME INFORMATION MAY BE OMITTED. This clinical summary was aggregated from multiple sources. Caution should be exercised in using it in the provision of clinical care. This summary normalizes information from multiple sources, and as a consequence, information in this document may materially change the coding, format and clinical context of patient data. In addition, data may be omitted in some cases. CLINICAL DECISIONS SHOULD BE BASED ON THE PRIMARY CLINICAL RECORDS. [facility] [employer] provides no warranty or guarantee of the accuracy or completeness of information in this document.
[2023-08-23 22:23] LABS: Absolute Lymphocyte Count 1.89 X10^3/uL (0.83-4.51); Absolute Neutrophil Count 5.6 X10^3/uL (2.0-7.7); Basophil# 0.05 X10^3/uL; Basophil% 0.6 % (0-1); Eosinophil# 0.09 X10^3/uL; Eosinophils% 1.1 % (0-5); Hematocrit 46.7 % (40-54); Hemoglobin 15.5 g/dL (13.0-16.5); Lymphocyte # 1.89 X10^3/ul (0.83-4.51); Lymphocyte % 23.1 % (19-41); Mean Corp Hgb Conc 33.2 g/dL (32-36); Mean Corpuscular Hgb 30.5 pg (27.0-32.0); Mean Corpuscular Volume 91.9 fL (80-94); Mean Platelet Vol. 9.8 fl (6.2-12.0); Monocyte# 0.52 X10^3/uL; Monocyte% 6.3 % (0-10); NRBC Flagged by Analyzer 0 % (0-5); Neutrophil % 68.4 % (47-70); Platelet Count 220 K/mm3 (150-450); RBC Distribution Width CV 12.1 % (11.6-14.6); RBC Distribution Width SD 40.8 fl (35.1-43.9); Red Blood Count 5.08 M/mm3 (4.6-6.2); White Blood Count 8.2 K/mm3 (4.4-11.0)
[2023-08-23 22:50] LABS: ALB/GLOB Ratio 1.2 RATIO (0.9-2.4); AST(SGOT) 13 U/L (15-37); Alanine Aminotransfer ALT/SGPT 29 U/L (16-61); Albumin, Serum 3.7 g/dL (3.2-5.0); Alkaline Phosphatase 73 U/L (45-117); Anion Gap 5 (5-15); BUN 16 mg/dL (7-18); BUN/Creat Ratio 17.9 RATIO (10-20); Calcium,Total 9.3 mg/dL (8.5-10.1); Chloride 106 mmol/L (98-107); Cholesterol 152 mg/dL (200); EST Glomerular Filtration Rate 90 mL/min (>60); Est Glom Filt Rate - Afr Amer 109 mL/min (>60); Globulin 3.1 g/dL (2.2-4.2); Glucose 117 mg/dL (74-106); High Density Lipoprotein 36 mg/dL; PSA,Total- Diagnostic 0.78 ng/mL (0.0-4.0); Protein, Total 6.8 g/dL (6.4-8.2); Sodium Level 139 mmol/L (136-145); Triglycerides 263 mg/dL; Very Low Density Lipoprotein 53 mg/dL (5-40)
== END | disposition home or self-care (01) ==
PROVIDERS: PCP Nurse Practitioner; Visit Provider Nurse Practitioner
DX: R35.0 Frequency of micturition (principal); E11.65 Type 2 diabetes mellitus with hyperglycemia; K21.9 Gastro-esophageal reflux disease without esophagitis; I10 Essential (primary) hypertension; E78.5 Hyperlipidemia, unspecified
CPT/HCPCS: 80053; 80061; 84153; 85025

== ENCOUNTER → 2024-02-28 | Outpatient (CLI) | payer MEDICARE, SELFPAY ==
--- NOTE | 2024-02-28 10:02 | STRESSREP ---
Stress Test Report Exercise myocardial perfusion stress test. [68-year-old man with a history of coronary artery disease.] Stress protocol: Resting EKG demonstrates [normal sinus rhythm with a rate of 54] bpm resting blood pressure is [138/82] mmHg. The patient exercised according to the regular Mason protocol for a total duration of [9 minutes] attaining a maximum heart rate of [130 ] bpm which was [84%] of maximum predicted heart rate; the maximum workload was [10.1 ] metabolic equivalents. At rest there were no ST or T wave changes noted to suggest ischemia and at peak exercise upsloping ST changes only were noted which did not meet the criteria for ischemia. No clinical angina was noted the test was terminated due to the target heart rate being achieved/fatigue. The peak blood pressure was [164/80] mmHg. Rate-pressure product was [27548]. Myocardial perfusion protocol. [14.3] mCi of technetium 99m sestamibi was injected at rest. The patient exercised according to regular Mason protocol for total duration of [9 minutes] and at peak exercise [44.7] mCi of technetium 99m sestamibi was injected stress images were obtained stress and rest images were reconstructed in comparing the short axis vertical long and horizontal long axis. Gated images were also obtained. Perfusion SPECT analysis: Review of the stress images demonstrate normal uptake of tracer noted in all areas of the myocardium with a large defect involving the mid to distal anterior wall. The resting images similarly demonstrate normal uptake of tracer noted in all areas of the myocardium except the mid inferior wall to distal inferior wall. No areas of reversibility are noted to suggest ischemia. Minimal periinfarct ischemia noted. Gated SPECT analysis: The gated ejection fraction is [60%]. Conclusion: [Normal exercise myocardial perfusion stress test at a highworkload.] Previous inferior infarct noted. [Preserved] ejection fraction.
== END | disposition home or self-care (01) ==
PROVIDERS: PCP Nurse Practitioner; Referring Provider Internal Medicine Cardiovascular Disease; Visit Provider Internal Medicine Cardiovascular Disease
DX: I25.10 Atherosclerotic heart disease of native coronary artery without angina pectoris (principal); Z95.5 Presence of coronary angioplasty implant and graft
CPT/HCPCS: 78452; 93017; A9500; A4216

== ENCOUNTER → 2024-09-07 | Outpatient (CLI) | payer MEDICARE, SELFPAY ==
[2024-09-07 22:02] LABS: Absolute Lymphocyte Count 0.58 X10^3/uL (0.83-4.51); Absolute Neutrophil Count 6.3 X10^3/uL (2.0-7.7); Basophil# 0.02 X10^3/uL; Basophil% 0.3 % (0-1); Eosinophil# 0.01 X10^3/uL; Eosinophils% 0.1 % (0-5); Hematocrit 46.1 % (40-54); Hemoglobin 15.6 g/dL (13.0-16.5); Lymphocyte # 0.58 X10^3/ul (0.83-4.51); Lymphocyte % 8.3 % (19-41); Mean Corp Hgb Conc 33.8 g/dL (32-36); Mean Corpuscular Hgb 31.1 pg (27.0-32.0); Mean Corpuscular Volume 91.8 fL (80-94); Monocyte# 0.06 X10^3/uL; Monocyte% 0.9 % (0-10); NRBC Flagged by Analyzer 0 % (0-5); Neutrophil # 6.27 X10^3/uL (2.7-7.7); Neutrophil % 90.1 % (47-70); POSITIVE DIFFERENTIAL YES; Platelet Count 226 K/mm3 (150-450); RBC Distribution Width CV 12.2 % (11.6-14.6); RBC Distribution Width SD 41.1 fl (35.1-43.9); Red Blood Count 5.02 M/mm3 (4.6-6.2)
[2024-09-07 22:16] LABS: ALB/GLOB Ratio 1.2 RATIO (0.9-2.4); AST(SGOT) 16 U/L (15-37); Alanine Aminotransfer ALT/SGPT 30 U/L (16-61); Albumin, Serum 3.9 g/dL (3.2-5.0); Alkaline Phosphatase 83 U/L (45-117); Anion Gap 7 (5-15); BUN 16 mg/dL (7-18); BUN/Creat Ratio 15.8 RATIO (10-20); Calcium,Total 9.3 mg/dL (8.5-10.1); Chloride 106 mmol/L (98-107); Cholesterol 162 mg/dL (200); Creatinine, Serum 1.01 mg/dL (0.70-1.30); EST Glomerular Filtration Rate 78 mL/min (>60); Est Glom Filt Rate - Afr Amer 94 mL/min (>60); Globulin 3.3 g/dL (2.2-4.2); Glucose 280 mg/dL (74-106); High Density Lipoprotein 42 mg/dL; PSA,Total - Annual Screen 0.87 ng/mL (0.00-4.00); Potassium 4.6 mmol/L (3.5-5.1); Protein, Total 7.2 g/dL (6.4-8.2); Sodium Level 138 mmol/L (136-145); Triglycerides 254 mg/dL; Very Low Density Lipoprotein 51 mg/dL (5-40)
== END | disposition home or self-care (01) ==
PROVIDERS: PCP Nurse Practitioner; Referring Provider Nurse Practitioner; Visit Provider Nurse Practitioner
DX: E11.65 Type 2 diabetes mellitus with hyperglycemia (principal); I73.9 Peripheral vascular disease, unspecified; E78.00 Pure hypercholesterolemia, unspecified; I10 Essential (primary) hypertension; K21.9 Gastro-esophageal reflux disease without esophagitis; N40.0 Benign prostatic hyperplasia without lower urinary tract symptoms; Z12.5 Encounter for screening for malignant neoplasm of prostate
CPT/HCPCS: 80053; 80061; 83036; 84153; 85025; G0103

== ENCOUNTER → 2025-01-28 | Outpatient (CLI) | payer MEDICARE, SELFPAY ==
[2025-01-28 10:23] LABS: Absolute Lymphocyte Count 1.77 X10^3/uL (0.83-4.51); Absolute Neutrophil Count 3.8 X10^3/uL (2.0-7.7); Basophil# 0.05 X10^3/uL; Basophil% 0.8 % (0-1); Eosinophil# 0.08 X10^3/uL; Eosinophils% 1.3 % (0-5); Hematocrit 45.2 % (40-54); Hemoglobin 15.4 g/dL (13.0-16.5); Lymphocyte # 1.77 X10^3/ul (0.83-4.51); Lymphocyte % 27.8 % (19-41); Mean Corp Hgb Conc 34.1 g/dL (32-36); Mean Corpuscular Volume 90.9 fL (80-94); Mean Platelet Vol. 9.7 fl (6.2-12.0); Monocyte# 0.71 X10^3/uL; Monocyte% 11.1 % (0-10); NRBC Flagged by Analyzer 0 % (0-5); Neutrophil # 3.75 X10^3/uL (2.7-7.7); Neutrophil % 58.8 % (47-70); Platelet Count 209 K/mm3 (150-450); RBC Distribution Width CV 12.1 % (11.6-14.6); RBC Distribution Width SD 40.4 fl (35.1-43.9); Red Blood Count 4.97 M/mm3 (4.6-6.2); White Blood Count 6.4 K/mm3 (4.4-11.0)
[2025-01-28 11:48] LABS: Anion Gap 11 (5-15); BUN 16 mg/dL (4-19); BUN/Creat Ratio 18.1 RATIO (10-20); Calcium,Total 9.6 mg/dL (7.6-11.0); Carbon Dioxide 22.9 mmol/L (21.0-32.0); Chloride 103 mmol/L (98-108); Creatinine, Serum 0.86 mg/dL (0.70-1.20); EST Glomerular Filtration Rate 94 (>60); Glucose 118 mg/dL (70-99); Potassium 4.7 mmol/L (3.3-5.1); Pro- Brain NATRIURETIC PEPTIDE 153 pg/mL (<=900); Sodium Level 137 mmol/L (133-145)
== END | disposition home or self-care (01) ==
LOC: LAB 09:43
PROVIDERS: PCP Nurse Practitioner; Referring Provider Nurse Practitioner Family; Visit Provider Nurse Practitioner Family
DX: R07.9 Chest pain, unspecified (principal); E11.65 Type 2 diabetes mellitus with hyperglycemia; Z95.5 Presence of coronary angioplasty implant and graft; I25.5 Ischemic cardiomyopathy; R06.09 Other forms of dyspnea
CPT/HCPCS: 36415; 80048; 83735; 83880; 85025

== ENCOUNTER → 2025-02-18 | Outpatient (CLI) | payer MEDICARE, SELFPAY ==
--- NOTE | 2025-02-18 06:07 | CT_ITS ---
PROCEDURE: CTA CHEST W/WO CONTRAST 02/18/2025 REASON FOR EXAM: EVALUATE ABNORMAL CT FROM 2016 AT [facility] TECHNIQUE: One or more dose reduction techniques were used (e.g., Automated exposure control, adjustment of the mA and/or kV according to patient size, use of iterative reconstruction technique). CTA CHEST W/WO CONTRAST Multiplanar Sagittal and Coronal images were obtained. 3D post processing was performed CONTRAST: Isovue 370 VOLUME: 100 mL RADIATION DOSE SUMMARY: CTDlvol: 14.1 mGy DLP: 591. 0 7 mGycm COMPARISON: No prior study available for comparison at this time. FINDINGS: Hardware: None Lymph nodes: Small benign-appearing bilateral axillary lymph nodes. Heart: Coronary artery calcifications are noted. Thoracic Aorta: Atherosclerotic plaque formation of the aortic arch. Pulmonary Vessels: No evidence of pulmonary embolism. Lungs and Airways: Calcified granuloma in the right lower lobe. Pleura: No pleural effusion. Upper Abdomen: Linear calcification of the left adrenal gland. Bones: Degenerative changes of the thoracic spine. CT/CTA Chest W/WO Contrast IMPRESSION: Coronary artery calcification. Calcified granuloma in the right lower lobe. Reading Location: [place] [id number]
--- OUTSIDE RECORDS SUMMARY | 2025-02-18 06:09 | XMS RPT_ITS | CCD ---
Author Organization [facility] Care Team Providers Care Public Health Registrar Name Role Phone Rai TANK PROCESSOR, TANK PROCESSOR-C Tamar Primary Care Provider Rai TANK PROCESSOR, TANK PROCESSOR-C Tamar Referring Provider Dr. Juventino Weber Attending Provider Dr. Omar Randall Attending Provider [phone] Rai TANK PROCESSOR, TANK PROCESSOR-C Tamar Primary Care Provider Rai TANK PROCESSOR, TANK PROCESSOR-C Tamar Referring Provider Dr. Omar Randall Attending Provider [phone] Jacob NAYLOR, TANK PROCESSOR-C Amarilis Attending Provider Dr. Juventino Weber Attending Provider Rai READING COACH.TELEVISION TUBE INSPECTOR, Tamar L Primary Care Provide r [place] TANK PROCESSOR-C, Tamar Primary Care Provider [place] TANK PROCESSOR-C, Tamar Referring Provider [phone] Roof TANK PROCESSOR-CKip Attending Provider Roof TANK PROCESSOR-C, Kip H Referring Provider [place] TANK PROCESSOR, Tamar Primary Care Unavailable [place] TANK PROCESSOR, Tamar Attending Unavailable [place] TANK PROCESSOR, Tamar Referring Unavailable Roof TANK PROCESSOR, Kip H Attending Unavailable Roof TANK PROCESSOR, Kip H Referring Unavailable [place] TANK PROCESSOR, Tamar Primary Care Unavailable Roof TANK PROCESSOR, Kip H Attending Unavailable [place] TANK PROCESSOR, Kip H Referring Unavailable [place] TANK PROCESSOR, Tamar Primary Care Unavailable [place] TANK PROCESSOR, Kip H Attending Unavailable Ro[place] TANK PROCESSOR, Kip H Referring Unavailable [place] TANK PROCESSOR, Tamar Primary Care Unavailable Juventino Weber Consulting Unavailable Juventino Weber Attending Unavailable Juventino Weber Referring Unavailable [place] TANK PROCESSOR, Tamar Primary Care Unavailable [place] TANK PROCESSOR, Kip H Attending Unavailable Rai NAYLOR, Tamar Primary Care Unavailable Rai NAYLOR, Tamar Referring Unavailable Juventino Weber Attending Unavailable Juventino Weber Referring Unavailable Rai NAYLOR, Tamar Primary Care Unavailable Medications Current Medications Medication Drug Class(es) Dates Sig (Normalized) Sig (Original) aspirin 81 mg delayed release oral tablet (8 sources) Platelet Aggregation Inhibitor, Nonsteroidal Anti-inflammatory Drug Start: 10-19-2019 take 1 tablet by mouth once daily Aspirin (Adult Aspirin Regimen) 81 mg tablet,delayed release (DR/EC) Active 81 mg PO DAILY October 22, 2019 12:00am Blood-Glucose Meter (Accu-Chek Guide Glucose Meter) misc (7 sources) Start: 10-22-2019 Blood-Glucose Meter (Accu-Chek Guide Glucose Meter) misc Active 0 .ROUTE .MEDSUPPLY October 22, 2019 3:29pm As directed Start: 10-22-2019 Blood-Glucose Meter (Accu-Chek Guide Glucose Meter) misc Active 0 .ROUTE .MEDSUPPLY October 21, 2019 11:00pm As directed Start: 10-22-2019 Blood-Glucose Meter (Accu-Chek Guide Glucose Meter) misc Active 0 .ROUTE .MEDSUPPLY October 22, 2019 12:00am As directed pregabalin 100 mg oral capsule (2 sources) Start: 01-28-2025 take 1 capsule by mouth once daily Pregabalin 100 mg capsule Active 100 mg PO daily January 28, 2025 12:00am Completed/Discontinued Medications Medication Drug Class(es) Dates Sig (Normalized) Sig (Original) amoxicillin 500 mg oral tablet (14 sources) Penicillin-class Antibacterial Start: 12-17-2019 End: 01-25-2020 take 2 tablets by mouth twice daily Amoxicillin 500 mg tablet Discontinued 1000 mg PO TWICE A DAY 4 December 17, 2019 12:00am January 25, 2020 3:05pm prior to oral surgery Start: 12-17-2019 End: 01-25-2020 take 1000 mg by mouth twice daily Amoxicillin Discontinued 1000 MG PO TWICE A DAY 4 December 16, 2019 11:00pm January 25, 2020 2:05pm prior to oral surgery Start: 10-22-2019 End: 11-24-2019 take 1 tablet by mouth twice daily Amoxicillin 875 mg tablet Discontinued 875 mg PO TWICE A DAY 20 March 12th, 2020 12:00am November 24, 2019 5:00pm amoxicillin 875 mg / clavulanate 125 mg oral tablet (7 sources) Penicillin-class Antibacterial Start: 05-14-2021 End: 05-17-2021 Amoxicillin-Pot Clavulanate (Augmentin) 875-125 mg tablet Discontinued 1 {tbl} PO TWICE A DAY May 14, 2021 12:00am May 17, 2021 10:13am atorvastatin 80 mg oral tablet (20 sources) HMG-CoA Reductase Inhibitor Start: 02-15-2022 End: 09-07-2024 take 1 tablet by mouth at bedtime Atorvastatin 80 mg tablet Discontinued 80 mg PO AT BEDTIME March 12, 2022 9:56am October 18, 2022 5:54pm Start: 10-19-2019 End: 02-15-2022 take 1 tablet by mouth at bedtime Atorvastatin 40 mg tablet Discontinued 40 mg PO AT BEDTIME October 06, 2021 7:48pm February 15, 2022 10:06am azithromycin 250 mg oral tablet (7 sources) Macrolide Antimicrobial Start: 12-21-2022 End: 12-26-2022 take 2 tablets by mouth once daily, then take 1 tablet by mouth once daily at mealtime Azithromycin 250 mg tablet Discontinued 250 mg PO daily 01 14December 21, 2022 12:00am December 25, 2022 12:00am December 26, 2022 12:08am 2 po qd for 1 day then 1 po qd for 4 days with food or after eating Start: 08-07-2022 End: 08-12-2022 take 2 tablets by mouth once daily, then take 1 tablet by mouth once daily at mealtime Azithromycin 250 mg tablet Discontinued 250 mg PO daily 01 14August 07, 2022 1:00am August 11, 2022 1:00am August 12, 2022 1:04am 2 po qd for 1 day then 1 po qd for 4 days with food or after eating baclofen 10 mg oral tablet (7 sources) gamma-Aminobutyric Acid-ergic Agonist Start: 10-12-2020 End: 10-06-2021 take 1 tablet by mouth at bedtime Baclofen 10 mg tablet Discontinued 10 mg PO AT BEDTIME October 12, 2020 1:00am October 06, 2021 7:45pm carvedilol 3.125 mg oral tablet (20 sources) alpha-Adrenergic Rony, beta-Adrenergic Rony Start: 12-03-2022 End: 09-07-2024 take 1 tablet by mouth twice daily at mealtime Carvedilol 3.125 mg tablet Discontinued 3.125 mg PO TWICE A DAY 180 April 28, 2024 11:38am May 20, 2024 6:47pm must administer with a meal/food Start: 10-18-2022 End: 12-03-2022 Carvedilol 6.25 mg tablet Discontinued 3.25 mg .ROUTE .COMPLEX October 18, 2022 5:50pm December 03, 2022 2:37pm 3.25 mg; Start: 10-18-2022 End: 12-03-2022 Carvedilol Discontinued 3.25 MG .ROUTE .COMPLEX October 18, 2022 4:50pm December 03, 2022 1:37pm 3.25 mg; Start: 10-01-2022 End: 10-18-2022 take 1 tablet by mouth twice daily at mealtime Carvedilol 6.25 mg tablet Discontinued 0 .ROUTE .COMPLEX 180 October 01, 2022 5:31pm October 18, 2022 5:51pm TAKE 1 TABLET BY MOUTH TWICE A DAY WITH MEAL/FOOD Start: 10-10-2021 End: 10-01-2022 take 1 tablet by mouth twice daily at mealtime Carvedilol (Coreg) 3.125 mg tablet Discontinued 3.125 mg PO TWICE A DAY 180 October 10, 2021 4:42pm October 01, 2022 5:31pm must administer with a meal/food Start: 10-03-2021 End: 10-10-2021 take 1 tablet by mouth twice daily at mealtime Carvedilol 6.25 mg tablet Discontinued 6.25 mg PO TWICE A DAY 180 October 03, 2021 1:00am October 10, 2021 4:42pm must administer with a meal/food Start: 06-09-2021 End: 10-03-2021 take 2 tablets by mouth twice daily Carvedilol 3.125 mg tablet Discontinued 6.25 mg PO TWICE A DAY 180 June 09, 2021 9:54am October 03, 2021 10:21am Start: 06-09-2021 End: 10-03-2021 take 6.25 mg by mouth twice daily Carvedilol Discontinued 6.25 MG PO TWICE A DAY June 09, 2021 8:54am October 03, 2021 9:21am Start: 05-14-2021 End: 06-09-2021 take 1 tablet by mouth twice daily Carvedilol 3.125 mg tablet Discontinued 3.125 mg PO TWICE A DAY 180 May 16, 2021 4:22pm June 09, 2021 9:54am clopidogrel 75 mg oral tablet (20 sources) [id number] Platelet Inhibitor Start: 10-21-2020 End: 09-07-2024 take 1 tablet by mouth once daily Clopidogrel 75 mg tablet Discontinued 75 mg PO DAILY August 23, 2023 4:51pm September 07, 2024 4:03pm dexamethasone 6 mg oral tablet (7 sources) Corticosteroid Start: 08-25-2021 End: 10-06-2021 take 1 tablet by mouth twice daily Dexamethasone (Decadron) 6 mg tablet Discontinued 6 mg PO TWICE A DAY August 25, 2021 1:00am October 06, 2021 7:46pm empagliflozin 25 mg oral tablet (20 sources) Sodium-Glucose Cotransporter 2 Inhibitor Start: 10-22-2019 End: 09-07-2024 take 1 tablet by mouth once daily Empagliflozin (Jardiance) 25 mg tablet Discontinued 25 mg PO DAILY August 23, 2023 4:51pm September 07, 2024 4:03pm esomeprazole 40 mg delayed release oral capsule (20 sources) Proton Pump Inhibitor Start: 12-22-2018 End: 09-07-2024 take 1 capsule by mouth once daily Esomeprazole Magnesium (Nexium) 40 mg capsule,delayed release(DR/EC) Discontinued 40 mg PO DAILY January 21, 2020 7:42pm January 25, 2020 3:07pm esomeprazole mag nesium (NEXIUM ORAL) Take by mouth. Active 24 hr isosorbide mononitrate 30 mg extended release oral tablet (17 sources) Nitrate Vasodilator Start: 03-12-2022 End: 09-07-2024 take 1 tablet by mouth once daily Isosorbide Mononitrate 30 mg tablet extended release 24 hr Discontinued 0 .ROUTE .COMPLEX December 17, 2022 9:40am August 23, 2023 4:52pm TAKE 1 TABLET BY MOUTH EVERY DAY levoFLOXacin 500 mg oral tablet (19 sources) Quinolone Antimicrobial Start: 12-27-2021 End: 04-12-2022 take 1 tablet by mouth once daily Levofloxacin 500 mg tablet Discontinued 500 mg PO DAILY December 27, 2021 1:44pm April 12, 2022 8:30am Start: 08-25-2021 End: 10-06-2021 take 1 tablet by mouth once daily Levofloxacin 500 mg tablet Discontinued 500 mg PO DAILY August 25, 2021 2:06pm October 06, 2021 7:46pm Start: 05-16-2021 End: 06-09-2021 take 1 tablet by mouth once daily Levofloxacin 500 mg tablet Discontinued 500 mg PO DAILY May 16, 2021 12:00am June 09, 2021 9:26am lisinopril 2.5 mg oral tablet (20 sources) Angiotensin Converting Enzyme Inhibitor Start: 10-19-2019 End: 09-07-2024 take 1 tablet by mouth once daily Lisinopril 2.5 mg tablet Discontinued 2.5 mg PO DAILY August 23, 2023 4:49pm September 07, 2024 4:03pm metFORMIN hydrochloride 500 mg oral tablet (20 sources) Biguanide Start: 10-19-2019 End: 09-07-2024 take 1 tablet by mouth twice daily Metformin 500 mg tablet Discontinued 500 mg PO TWICE A DAY August 23, 2023 4:50pm September 07, 2024 4:03pm metoprolol tartrate 25 mg oral tablet (20 sources) beta-Adrenergic Rony Start: 10-22-2019 End: 05-14-2021 Metoprolol Tartrate 25 mg tablet Discontinued 12.5 mg PO TWICE A DAY October 12, 2020 7:59pm May 14, 2021 8:30am Start: 10-22-2019 End: 05-14-2021 take 12.5 mg by mouth twice daily Metoprolol Tartrate Discontinued 12.5 MG PO TWICE A DAY October 12, 2020 6:59pm May 14, 2021 7:30am Start: 10-22-2019 End: 10-22-2019 take 1 tablet by mouth once daily Metoprolol Tartrate 25 mg tablet Discontinued 25 mg PO DAILY October 22, 2019 12:00am October 22, 2019 3:45pm Start: 10-19-2019 take 1 tablet by cheryl th every twelve hours metoprolol tartrate, short acting, (LOPRESSOR) 25 mg tablet TAKE 1/2 TABLET BY MOUTH EVERY 12 HOURS. 60 tablet 1 10/19/2019 Active predniSONE 20 mg oral tablet (12 sources) Start: 12-27-2021 End: 04-12-2022 take 2 tablets by mouth once daily Prednisone 20 mg tablet Discontinued 40 mg PO DAILY December 27, 2021 12:00am April 12, 2022 9:02am Start: 12-27-2021 End: 04-12-2022 take 40 mg by mouth once daily Prednisone Discontinued 40 MG PO DAILY December 26, 2021 11:00pm April 12, 2022 8:02am Start: 12-22-2018 End: 12-26-2018 Prednisone 10 mg tablet Disc ontinued 20 mg PO TWICE A DAY as needed for poison mansi 30 December 22, 2018 12:00am December 25, 2018 12:00am December 26, 2018 12:07am 2 po bid 4D,1 po bid for 4 D, 1 po qd for 4 D 1/2 po qd for 2 days Start: 12-22-2018 End: 12-26-2018 Prednisone Discontinued 20 M G PO TWICE A DAY 30 December 21, 2018 11:00pm December 25, 2018 11:07pm 2 po bid 4D,1 po bid for 4 D, 1 po qd for 4 D 1/2 po qd for 2 days 12 hr ranolazine 1000 mg extended release oral tablet (20 sources) Anti-anginal Start: 03-09-2022 End: 09-07-2024 take 1 tablet by mouth twice daily Ranolazine 1,000 mg tablet extended release 12 hr Discontinued 1000 mg PO TWICE A DAY 60 April 04, 2023 10:00am August 23, 2023 4:52pm Start: 06-09-2021 End: 03-09-2022 take 1 tablet by mouth twice daily Ranolazine (Ranexa) 500 mg tablet extended release 12 hr Discontinued 500 mg PO TWICE A DAY 180 August 01, 2021 4:05pm October 06, 2021 7:49pm ticagrelor 90 mg oral tablet (20 sources) Start: 10-19-2019 End: 10-21-2020 take 1 tablet by mouth twice daily Ticagrelor 90 mg tablet Discontinued 90 mg PO TWICE A DAY 180 October 12, 2020 8:00pm October 21, 2020 10:37am triamcinolone acetonide 40 mg/ml injectable suspension (4 sources) Corticosteroid Start: 07-25-2020 End: 07-25-2020 inject 60 mg by intramuscular injection once triamcinolone acetonide 40 mg/mL suspension for injection Discontinued 60 MG IM ONCE 1.5 July 25, 2020 5:00pm July 25, 2020 5:00pm Start: 12-22-2018 End: 12-22-2018 inject 60 mg by intramuscular injection once triamcinolone acetonide 40 mg/mL suspension for injection Discontinued 60 MG IM ONCE 1.5 December 22, 2018 4:44pm December 22, 2018 5:21pm Problems Active Problems Problem Classification Problem Date Documented Date Episodic/Chronic Acute myocardial infarction (8 sources) Myocardial infarction; Translations: [Non-ST elevation (NSTEMI) myocardial infarction] Onset: 0 05-14-2021 Chronic Allergic reactions (7 sources) Contact dermatitis due to poison mansi; Translations: [Allergic contact dermatitis due to plants, except food] 10-20-2020 Episodic Cardiac arrest and ventricular fibrillation (14 sources) Cardiac arrest; Translations: [Cardiac arrest, cause unspecified] Onset: 1 09-26-2021 Chronic Chronic obstructive pulmonary disease and bronchiectasis (4 sources) Bronchitis; Translations: [Bronchitis, not specified as acute or chronic] 08-08-2022 Episodic Conditions associated with dizziness or vertigo (4 sources) Dizziness; Translations: [Dizziness and giddiness] 04-12-2022 Episodic Coronary atherosclerosis and other heart disease (20 sources) History of acute ST segment elevation myocardial infarction; Translations: [Old myocardial infarction] Onset: 0 Chronic Coronary atherosclerosis and other heart disease (5 sources) Presence of coronary angioplasty implant and graft; Translations: [Percutaneous transluminal coronary angioplasty status] Onset: 0 Episodic Diabetes mellitus with complications (10 sources) Type II diabetes mellitus uncontrolled; Translations: [Type 2 diabetes mellitus with hyperglycemia] Onset: 5 06-08-2021 Chronic Diseases of mouth; excluding dental (7 sources) Abscess of oral tissue; Translations: [Cellulitis and abscess of mouth] 10-20-2020 Episodic Disorders of lipid metabolism (10 sources) Hyperlipidemia; Translations: [Hyperlipidemia, unspecified] Chronic Esophageal disorders (11 sources) Gastroesophageal reflux disease; Translations: [Gastro-esophageal reflux disease without esophagitis] 10-18-2022 Chronic Essential hypertension (13 sources) Essential hypertension; Translations: [Essential (primary) hypertension] Onset: Chronic Genitourinary symptoms and ill-defined conditions (3 sources) Increased frequency of urination; Translations: [Frequency of micturition] 08-23-2023 Episodic Hyperplasia of prostate (2 sources) Benign prostatic hyperplasia; Translations: [Benign prostatic hyperplasia without lower urinary tract symptoms] 09-07-2024 Chronic Nervous system congenital anomalies (6 sources) Neurofibromatosis syndrome; 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, unspecified] 11-22-2021 Chronic Nonspecific chest pain (10 sources) Chest pain; Translations: [Chest pain, unspecified] Onset: Episodic Other connective tissue disease (7 sources) Pain in upper limb; Translations: [Pain in arm, unspecified] 09-26-2021 Episodic Other connective tissue disease (7 sources) Musculoskeletal pain; Translations: [Myalgia, other site] 10-10-2021 Episodic Other connective tissue disease (2 sources) Pain in bilateral lower legs; Translations: [Pain in right lower leg] 09-07-2024 Episodic Other lower respiratory disease (7 sources) Hemoptysis; Translations: [Hemoptysis] 06-08-2021 Episodic Other lower respiratory disease (4 sources) Cough; Translations: [Cough] 08-08-2022 Episodic Other lower respiratory disease (2 sources) Dyspnea on exertion; Translations: [Other forms of dyspnea] 01-28-2025 Episodic Other lower respiratory disease (2 sources) Other forms of dyspnea; Translations: [Other forms of dyspnea] Onset: Episodic Other nervous system disorders (3 sources) Tremor; Translations: [Tremor, unspecified] 12-03-2022 Episodic Other skin disorders (6 sources) Skin tag; Translations: [Other hypertrophic disorders of the skin] 11-22-2021 Episodic Other upper respiratory disease (3 sources) Seasonal allergy; Translations: [Other seasonal allergic rhinitis] 12-21-2022 Chronic Other upper respiratory infections (5 sources) Acute maxillary sinusitis; Translations: [Acute maxillary sinusitis, unspecified] 08-08-2022 Episodic Otitis media and related conditions (3 sources) Otitis media of left ear; Translations: [Otitis media, unspecified, left ear] 12-21-2022 Episodic Residual codes; unclassified (2 sources) Edema of lower extremity; Translations: [Localized edema] 09-07-2024 Episodic Respiratory failure; insufficiency; arrest (adult) (7 sources) Acute respiratory failure; Translations: [Acute respiratory failure with hypoxia] 05-14-2021 Episodic Spondylosis; intervertebral disc disorders; other back problems (8 sources) Degeneration of cervical intervertebral disc; Translations: [Other cervical disc degeneration, unspecified cervical region] Chronic Spondylosis; intervertebral disc disorders; other back problems (7 sources) Radicular pain; Translations: [Radiculopathy, site unspecified] 11-02-2021 Episodic Past or Other Problems Problem Classification Problem Date Documented Da te Episodic/Chronic Shock (7 sources) Cardiogenic shock; Translations: [Cardiogenic shock] Onset: 05-11-2021 09-26-2021 Episodic Results Test Name Value Interpretation Reference Range Facility Absolute lymphocyte countOrd ered By: Kip Faith on 01-28-2025 Lymphocytes Auto (Unsp spec) [#/Vol] 1.77 10*3/uL 0.83-4.51 [facility] Absolute neutrophil countOrd ered By: Kip Faith on 01-28-2025 Neutrophils (Bld) [#/Vol] 3.8 10*3/uL 2.0-7.7 [facility] Anion gap in Serum or Plasma Ordered By: Kip Faith on 01-28-2025 Anion gap [Moles/Vol] 11 mmol/L 12-24 [facility] Automated lymphocyte count a s percentage of total leukocytesOrdered By: Kip Faith on 01-28-2025 Lymphocytes/100 WBC Auto (Unsp spec) 27.8 % [facility] BUN/creatinine ratioOrdered By: Kip Faith on 01-28-2025 Urea nitrogen/Creatinine [Mass ratio] 18.1 mg/mg 05-31 [facility] Basic Metabolic Profile (BMP )on 01-28-2025 BUN/CRE 18.1 RATIO Normal 05-31 [facility] Comment on above: Performed By: #### L [id number], [id number], L100.0100, L500.2500 #### [facility] [address] [place], [address] Calcium [Mass/Vol] 9.6 mg/dL Normal 7.6-11.0 [facility] Comment on above: Performed By: #### L [id number], [id number], L100.0100, L500.2500 #### [facility] [address] [place], [address] Chloride [Moles/Vol] 103 mmol/L Normal 98-108 [facility] Comment on above: Performed By: #### L [id number], [id number], L100.0100, L500.2500 #### [facility] [address] [place], [address] CO2 [Moles/Vol] 22.9 mmol/L Normal 21.0-32.0 [facility] Comment on above: Performed By: #### L [id number], [id number], L100.0100, L500.2500 #### [facility] [address] [place], [address] Creatinine [Mass/Vol] 0.86 mg/dL Normal 0.70-1.20 [facility] Comment on above: Performed By: #### L [id number], [id number], L100.0100, L500.2500 #### [facility] [address] [place], [address] GAP 11 Normal 5-15 [facility] Comment on above: Performed By: #### L [id number], [id number], L100.0100, L500.2500 #### [facility] [address] [place], [address] GFR/1.73 sq M.predicted among non-blacks MDRD (S/P/Bld) [Vol rate/Area] 94 mL/min/{1.73_m2} Normal >60 [facility] Comment on above: Result Comment: mL/m in/1.73m2 CKD-EPI Creatinine Equation (2020) Performed By: #### L [id number], [id number], L100.0100, L500.2500 #### [facility] [address] [place], [address] Glucose [Mass/Vol] 118 mg/dL High 70-99 [facility] Comment on above: Performed By: #### L [id number], [id number], L100.0100, L500.2500 #### [facility] [address] [place], [address] Potassium [Moles/Vol] 4.7 mmol/L Normal 3.3-5.1 [facility] Comment on above: Performed By: #### L [id number], [id number], L100.0100, L500.2500 #### [facility] [address] [place], [address] Sodium [Moles/Vol] 137 mmol/L Normal 133-145 [facility] Comment on above: Performed By: #### L [id number], [id number], L100.0100, L500.2500 #### [facility] [address] [place], [address] Urea nitrogen [Mass/Vol] 16 mg/dL Normal -19 [facility] Comment on above: Performed By: #### L [id number], [id number], L100.0100, L500.2500 #### [facility] [address] [place], [address] Basophil percentageOrdered B y: Kip Faith on 01-28-2025 Basophils/100 WBC (Bld) 0.8 % 0-1 [facility] CBC W/Diff, Automatedon 01-10 Absolute Lymph 1.77 X10 3/uL Normal 0.83-4.51 [facility] Comment on above: Performed By: #### L [id number], [id number], L100.0100, L500.2500 #### [facility] [address] [place], [address] Absolute Neut 3.8 X10 3/uL Normal 2.0-7.7 [facility] Comment on above: Performed By: #### L [id number], [id number], L100.0100, L500.2500 #### [facility] [address] [place], [address] Basophils/100 WBC (Bld) 0.8 % Normal 0-1 [facility] Comment on above: Performed By: #### L [id number], [id number], L100.0100, L500.2500 #### [facility] [address] [place], [address] Eosinophils/100 WBC (Bld) 1.3 % Normal 0-5 [facility] Comment on above: Performed By: #### L [id number], [id number], L100.0100, L500.2500 #### [facility] [address] [place], [address] Erythrocyte distribution width (RBC) [Ratio] 12.1 % Normal 11.6-14.6 [facility] Comment on above: Performed By: #### L [id number], [id number], L100.0100, L500.2500 #### [facility] [address] [place], [address] Hematocrit (Bld) [Volume fraction] 45.2 % Normal 40-54 [facility] Comment on above: Performed By: #### L [id number], [id number], L100.0100, L500.2500 #### [facility] [address] [place], [address] Hemoglobin (Bld) [Mass/Vol] 15.4 g/dL Normal 13.0-16.5 [facility] Comment on above: Performed By: #### L [id number], [id number], L100.0100, L500.2500 #### [facility] [address] [place], [address] IG% 0.200 Normal 0.0-0.9 [facility] Comment on above: Result Comment: IG% - Immature Granulocytes (promyelocytes, myelocytes and metamyelocytes) > 1% indicates that a LEFT SHIFT is Present. Performed By: #### L [id number], [id number], L100.0100, L500.2500 #### [facility] [address] [place], [address] Lymphocytes/100 WBC (Bld) 27.8 % Normal 19-41 [facility] Comment on above: Performed By: #### L [id number], [id number], L100.0100, L500.2500 #### [facility] [address] [place], [address] MCH (RBC) [Entitic mass] 31.0 pg Normal 27.0-32.0 [facility] Comment on above: Performed By: #### L [id number], [id number], L100.0100, L500.2500 #### [facility] [address] [place], [address] MCHC (RBC) [Mass/Vol] 34.1 g/dL Normal 32-36 [facility] Comment on above: Performed By: #### L [id number], [id number], L100.0100, L500.2500 #### [facility] Laboratory [address] [place], [address] MCV (RBC) [Entitic vol] 90.9 fL Normal 80-94 [facility] Comment on above: Performed By: #### L 503.7505, L501.5200, L100.0100, L500.2500 #### [facility] [address] [place], [address] Monocytes/100 WBC (Bld) 11.1 % High 0-10 [facility] Comment on above: Performed By: #### L 503.7505, L501.5200, L100.0100, L500.2500 #### [facility] [address] [place], [address] Neutrophils/100 WBC (Bld) 58.8 % Normal 47-70 [facility] Comment on above: Performed By: #### L 503.7505, L501.5200, L100.0100, L500.2500 #### [facility] [address] [place], [address] Nucleated RBC (Bld) [#/Vol] 0 10*3/uL Normal 0-5 [facility] Comment on above: Performed By: #### L 503.7505, L501.5200, L100.0100, L500.2500 #### [facility] [address] [place], [address] Platelet mean volume (Bld) [Entitic vol] 9.7 fL Normal 6.2-12.0 [facility] Comment on above: Performed By: #### L 503.7505, L501.5200, L100.0100, L500.2500 #### [facility] [address] [place], [address] Platelets (Bld) [#/Vol] 209 10*3/uL Normal 150-450 [facility] Comment on above: Performed By: #### L 503.7505, L501.5200, L100.0100, L500.2500 #### [facility] [address] [place], [address] RBC (Bld) [#/Vol] 4.97 10*6/uL Normal 4.6-6.2 [facility] Comment on above: Performed By: #### L 503.7505, L501.5200, L100.0100, L500.2500 #### [facility] [address] [place], [address] RDW SD 40.4 fl Normal 35.1-43.9 [facility] Comment on above: Performed By: #### L 503.7505, L501.5200, L100.0100, L500.2500 #### [facility] [address] [place], [address] WBC (Bld) [#/Vol] 6.4 10*3/uL Normal 4.4-11.0 [facility] Comment on above: Performed By: #### L 503.7505, L501.5200, L100.0100, L500.2500 #### [facility] [address] [place], [address] Carbon dioxide, total [Moles /volume] in Central venous bloodOrdered By: Kip Faith on 01-28-2025 CO2 [Moles/Vol] 22.9 mmol/L 21.0-32.0 [facility] Cardiology Visit Reporton Cardiology Visit Report [facility] [address] [place] [address] OFFICE VISIT Date of Service: 01/28/25 MR#: [id number] Acct: [id number] Name: SHARIF CADE Rep #: [id number] : 1955 Provider: DIANA marion Age/Sex: 69/M Location: [facility] Status: Signed HPI HPI History of Present Illness Details: This is a pleasant 69-year-old man who presents to the office today for a cardiovascular follow up visit. He presented with an ST elevation myocardial infarction in October 2019. It initially presented as bilateral arm and shoulder discomfort. He underwent a cardiac catheterization which demonstrated normal left main trunk, left anterior descending artery with moderate diffuse disease involving the ostium of the 2 diagonal vessels, mild disease of the circumflex artery, and acute complete occlusion of the distal dominant right coronary artery. He was treated with angioplasty and stented with a 2.5 x 28 mm drug-eluting stent the proximal portion was direct stented with an overlapping 3.0 x 38 mm drug-eluting stent. 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 His echocardiogram done at that admission demonstrated an ejection fraction of 40 to 45%. A CT scan of his chest had demonstrated an ill-defined lesion in the right upper lobe in 2015. He apparently did well for a while after that but then acknowledged he has had the arm discomfort return. He underwent an echocardiogram on 11/01/2020 that showed ejection fraction of 60% and no regional wall motion abnormalities. He proceeded with a stress test on 11/01/2020 that showed evidence of mid inferior ischemia at a moderate to high workload. He underwent a repeat cardiac catheterization in April of 2021, the right coronary vessel was patent he was having an attempt at FFR of the LAD and he went into a V. fib arrest he underwent CPR and defibrillation and subsequently recovered. He had an intra-aortic balloon pump placed overnight. Post operatively his ejection fraction was approximately 45%. More recently his ejection fraction has improved to 60% in February 2022 with mild aortic regurgitation. He acknowledges random, sharp chest discomfort. He describes as sharp at the right side of his chest and squeezing on the left. He describes this as brief and that it comes and goes. This occurs daily. He denies palpitations. He acknowledges bilateral lower extremity edema that he considers to be mild and most noted on the left lower extremity. He feels this to be improving. He acknowledges shortness of breath with activity. He denies shortness of breath at rest, cough, orthopnea, or PND. He denies lightheadedness, dizziness, near-syncope, or syncope. He denies fatigue. Intake Vital Signs 02/06/24 09:28 01/28/25 08:10 Height 5 ft 10 in 5 ft 10 in Weight: 194 lb BMI 27.8 BP 94/63 Blood Pressure Location Lt brachial Position Sitting Respiration 18 Pulse 61 Pulse Source NIBP Intake Visit Reasons: 1 Y FU Director Sales Required: No Accompanied by: Is patient in pain?: No Allergies No Known Allergies Allergy (Verified 01/28/25 08:30) Medications ???Medication ???Instructions ???Recorded ???Confirmed ???Type aspirin 81 mg tablet,delayed 81 mg PO DAILY 10/22/19 01/28/25 H istory release (Adult Aspirin Regimen) blood-glucose meter (Accu-Chek #1 ea 10/22/19 09/07/24 Rx Guide Glucose Meter) lancets (Accu-Chek Fastclix Lancet #100 ea 10/22/19 09/07/24 Rx Drum) atorvastatin 80 mg tablet 80 mg PO QHS #90 tabs 09/07/24 Rx blood sugar diagnostic (Accu-Chek #90 strips 09/07/24 09/07/24 Rx Guide test strips) carvedilol 3.125 mg tablet 3.125 mg PO BID #180 tabs 09/07/24 01/28/25 Rx clopidogrel 75 mg tablet 75 mg PO DAILY #90 tabs 09/07/24 0 01/28/25 Rx empagliflozin 25 mg tablet 25 mg PO DAILY #90 tabs 09/07/24 0 01/28/25 Rx (Jardiance) esomeprazole magnesium 40 mg 40 mg PO DAILY #90 caps 09/07/24 0 01/28/25 Rx capsule,delayed release isosorbide mononitrate 30 mg See Rx Instructions .Route 5 01/28/25 Rx tablet,extended release 24 hr .COMPLEX #90 tabs lisinopril 2.5 mg tablet 2.5 mg PO DAILY #90 tabs 09/07/24 01/28/25 Rx metformin 500 mg tablet 500 mg PO BID #180 tabs 09/07/24 0 01/28/25 Rx ranolazine 1,000 mg 1,000 mg PO BID #180 tabs 09/07/24 01/28/25 Rx tablet,extended release,12 hr pregabalin 100 mg capsule 100 mg PO QDAY 01/28/25 01/28/25 H istory Ejection fraction %: 60 Have you fallen in the past year?: No PFSH Medical History Neurofibroma of multiple sites Lung nodule Cardiac arrest (05/11/21) Hemoptysis C (more content not included)... Normal [facility] Chloride assayOrdered By: Stephani Fatih on 01-28-2025 Chloride [Moles/Vol] 103 mmol/L 98-108 [facility] Eosinophil percentageOrdered By: Kip Faith on 01-28-2025 Eosinophils/100 WBC (Bld) 1.3 % 0-5 [facility] Erythrocyte distribution wid th ratioOrdered By: Kip Faith on 01-28-2025 Erythrocyte distribution width (RBC) [Ratio] 12.1 % 11.6-14.6 [facility] Erythrocyte distribution wid th standard deviationOrdered By: Kip Faith on 01-28-2025 Erythrocyte distribution width (RBC) [Ratio] 40.4 fl 35.1-43.9 [facility] Glomerular filtration rate ( GFR) estimation/1.73 sq m using serum, plasma, or whole bOrdered By: Kip Faith on 01-28-2025 GFR/1.73 sq M.predicted among non-blacks MDRD (S/P/Bld) [Vol rate/Area] 94 mL/min/{1.73_m2} >60 [facility] Comment on above: mL/min/1.73m2 CKD-EP I Creatinine Equation (2020) Hematocrit Auto (Bld) [Volum e fraction]Ordered By: Kip Faith on 01-28-2025 Hematocrit (Bld) [Volume fraction] 45.2 % 40-54 [facility] Hemoglobin measurementOrdere d By: Kip Faith on 01-28-2025 Hemoglobin (Bld) [Mass/Vol] 15.4 g/dL 13.0-16.5 [facility] Immature granulocytes/100 WB C Auto (Bld)Ordered By: Kip Faith on 01-28-2025 Immature granulocytes/100 WBC (Bld) 0.200 % 0.0-0.9 [facility] Comment on above: IG% - Immature Granu locytes (promyelocytes, myelocytes and metamyelocytes) > 1% indicates that a LEFT SHIFT is Present. L503.7505on 01-28-2025 Natriuretic peptide B (Bld) [Mass/Vol] 153 pg/mL Normal <=900 [facility] Comment on above: Result Comment: Hear t Failure Unlikely: < 300 pg/mL Heart Failure Likely < 50 Years: > 450 pg/mL 50-75 Years: > 900 pg/mL >75 Years: > 1800 pg/mL Performed By: #### L 503.7505, L501.5200, L100.0100, L500.2500 #### [facility] [address] [place], [address] MCV (mean corpuscular volume ) determinationOrdered By: Kip Faith on 01-28-2025 MCV (RBC) [Entitic vol] 90.9 fL 80-94 [facility] Magnesiumon 01-28-2025 Magnesium [Mass/Vol] 2.0 mg/dL Normal 1.5-2.2 [facility] Comment on above: Performed By: #### L 503.7505, L501.5200, L100.0100, L500.2500 #### [facility] [address] [place], [place], [address] Magnesium measurement (mass/ volume)Ordered By: Kip Faith on 01-28-2025 Magnesium (Unsp spec) [Mass/Vol] 2.0 mg/dL 1.5-2.2 [facility] Mean corpuscular hemoglobin (MCH) determinationOrdered By: Kip Faith on 01-28-2025 MCH (RBC) [Entitic mass] 31.0 pg 27.0-32.0 [facility] Mean corpuscular hemoglobin concentration (MCHC) determinationOrdered By: Kip Faith on 01-28-2025 MCHC (RBC) [Mass/Vol] 34.1 g/dL 32-36 [facility] Mean platelet volume determi nationOrdered By: Kip Faith on 01-28-2025 Platelet mean volume (Bld) [Entitic vol] 9.7 fL 6.2-12.0 [facility] Monocyte percentageOrdered B y: Kip Faith on 01-28-2025 Monocytes/100 WBC (Bld) 11.1 % High 0-10 [facility] Natriuretic peptide.B prohor luis N-Terminal [Mass/volume] in Serum or PlasmaOrdered By: Kip Faith on 01-28-2025 Natriuretic peptide.B prohormone N-Terminal [Mass/Vol] 153 pg/mL <900 [facility] Comment on above: Heart Failure Unlike ly: < 300 pg/mLHeart Failure Likely< 50 Years: > 450 pg/mL50-75 Years: > 900 pg/mL>75 Years: > 1800 pg/mL Neutrophil percentageOrdered By: Kip Faith on 01-28-2025 Neutrophils/100 WBC (Bld) 58.8 % 47-70 [facility] Nucleated red blood cell per centageOrdered By: Kip Faith on 01-28-2025 Nucleated RBC/100 WBC (Bld) [Ratio] 0 % 0-5 [facility] Platelet countOrdered By: Stephani Faith on 01-28-2025 Platelets (Bld) [#/Vol] 209 10*3/uL 150-450 [facility] Potassium measurement (mass/ volume)Ordered By: Kip Faith on 01-28-2025 Potassium (Unsp spec) [Mass/Vol] 4.7 mmol/L 3.3-5.1 [facility] RBC Auto (Bld) [#/Vol]Ordere d By: Kip Faith on 01-28-2025 RBC (Bld) [#/Vol] 4.97 10*6/uL 4.6-6.2 [facility] Serum creatinine measurement (mass/volume)Ordered By: Kip Faith on 01-28-2025 Creatinine [Mass/Vol] 0.86 mg/dL 0.70-1.20 [facility] Serum glucose measurement (m ass/volume)Ordered By: Kip Faith on 01-28-2025 Glucose [Mass/Vol] 118 mg/dL High 70-99 [facility] Serum or plasma calcium kimberley urement (mass/volume)Ordered By: Kip Faith on 01-28-2025 Calcium [Mass/Vol] 9.6 mg/dL 7.6-11.0 [facility] Serum or plasma urea nitroge n measurement (mass/volume)Ordered By: Kip Faith on 01-28-2025 Urea nitrogen [Mass/Vol] 16 mg/dL 4-19 [facility] Sodium levelOrdered By: Kip Faith on 01-28-2025 Sodium [Moles/Vol] 137 mmol/L 133-145 [facility] White blood cell (WBC) count Ordered By: Kip Faith on 01-28-2025 WBC (Bld) [#/Vol] 6.4 10*3/uL 4.4-11.0 [facility] CBC W/Diff, Automatedon 01-2 Absolute Lymph 0.58 X10 3/uL Low 0.83-4.51 [facility] Comment on above: Performed By: #### L 501.9985, L500.4100, L100.0100, L500.4050, L501.9910 #### [facility] [address] [place], [address] Absolute Neut 6.3 X10 3/uL Normal 2.0-7.7 [facility] Comment on above: Performed By: #### L 501.9985, L500.4100, L100.0100, L500.4050, L501.9910 #### [facility] [address] [place], [address] Basophils/100 WBC (Bld) 0.3 % Normal 0-1 [facility] Comment on above: Performed By: #### L 501.9985, L500.4100, L100.0100, L500.4050, L501.9910 #### [facility] [address] [place], [address] Eosinophils/100 WBC (Bld) 0.1 % Normal 0-5 [facility] Comment on above: Performed By: #### L 501.9985, L500.4100, L100.0100, L500.4050, L501.9910 #### [facility] [address] [place], [address] Erythrocyte distribution width (RBC) [Ratio] 12.2 % Normal 11.6-14.6 [facility] Comment on above: Performed By: #### L 501.9985, L500.4100, L100.0100, L500.4050, L501.9910 #### [facility] [address] [place], [address] Hematocrit (Bld) [Volume fraction] 46.1 % Normal 40-54 [facility] Comment on above: Performed By: #### L 501.9985, L500.4100, L100.0100, L500.4050, L501.9910 #### [facility] [address] [place], [address] Hemoglobin (Bld) [Mass/Vol] 15.6 g/dL Normal 13.0-16.5 [facility] Comment on above: Performed By: #### L 501.9985, L500.4100, L100.0100, L500.4050, L501.9910 #### [facility] [address] [place], [address] IG% 0.300 Normal 0.0-0.9 [facility] Comment on above: Result Comment: IG% - Immature Granulocytes (promyelocytes, myelocytes and metamyelocytes) > 1% indicates that a LEFT SHIFT is Present. Performed By: #### L 501.9985, L500.4100, L100.0100, L500.4050, L501.9910 #### [facility] [address] [place], [address] Lymphocytes/100 WBC (Bld) 8.3 % Low 19-41 [facility] Comment on above: Performed By: #### L 501.9985, L500.4100, L100.0100, L500.4050, L501.9910 #### [facility] [address] [place], [address] MCH (RBC) [Entitic mass] 31.1 pg Normal 27.0-32.0 [facility] Comment on above: Performed By: #### L 501.9985, L500.4100, L100.0100, L500.4050, L501.9910 #### [facility] [address] [place], [address] MCHC (RBC) [Mass/Vol] 33.8 g/dL Normal 32-36 [facility] Comment on above: Performed By: #### L 501.9985, L500.4100, L100.0100, L500.4050, L501.9910 #### [facility] [address] [place], [address] MCV (RBC) [Entitic vol] 91.8 fL Normal 80-94 [facility] Comment on above: Performed By: #### L 501.9985, L500.4100, L100.0100, L500.4050, L501.9910 #### [facility] [address] [place], [address] Monocytes/100 WBC (Bld) 0.9 % Normal 0-10 [facility] Comment on above: Performed By: #### L 501.9985, L500.4100, L100.0100, L500.4050, L501.9910 #### [facility] [address] [place], [address] Neutrophils/100 WBC (Bld) 90.1 % High 47-70 [facility] Comment on above: Performed By: #### L 501.9985, L500.4100, L100.0100, L500.4050, L501.9910 #### [facility] [address] [place], [address] Nucleated RBC (Bld) [#/Vol] 0 10*3/uL Normal 0-5 [facility] Comment on above: Performed By: #### L 501.9985, L500.4100, L100.0100, L500.4050, L501.9910 #### [facility] [address] [place], [address] Platelet mean volume (Bld) [Entitic vol] 10.0 fL Normal 6.2-12.0 [facility] Comment on above: Performed By: #### L 501.9985, L500.4100, L100.0100, L500.4050, L501.9910 #### [facility] [address] [place], [address] Platelets (Bld) [#/Vol] 226 10*3/uL Normal 150-450 [facility] Comment on above: Performed By: #### L 501.9985, L500.4100, L100.0100, L500.4050, L501.9910 #### [facility] [address] [place], [address] RBC (Bld) [#/Vol] 5.02 10*6/uL Normal 4.6-6.2 [facility] Comment on above: Performed By: #### L 501.9985, L500.4100, L100.0100, L500.4050, L501.9910 #### [facility] [address] [place], [address] RDW SD 41.1 fl Normal 35.1-43.9 [facility] Comment on above: Performed By: #### L 501.9985, L500.4100, L100.0100, L500.4050, L501.9910 #### [facility] [address] [place], [address] WBC (Bld) [#/Vol] 7.0 10*3/uL Normal 4.4-11.0 [facility] Comment on above: Performed By: #### L 501.9985, L500.4100, L100.0100, L500.4050, L501.9910 #### [facility] [address] [place], [address] Comprehensive Metabolic Prof ilon 09-07-2024 Albumin [Mass/Vol] 3.9 g/dL Normal 3.2-5.0 [facility] Comment on above: Performed By: #### L 501.9985, L500.4100, L100.0100, L500.4050, L501.9910 #### [facility] [address] [place], [address] Albumin/Globulin [Mass ratio] 1.2 {ratio} Normal 0.9-2.4 [facility] Comment on above: Performed By: #### L 501.9985, L500.4100, L100.0100, L500.4050, L501.9910 #### [facility] [address] [place], [address] ALK P 83 U/L Normal 45-117 [facility] Comment on above: Performed By: #### L 501.9985, L500.4100, L100.0100, L500.4050, L501.9910 #### [facility] [address] [place], [address] ALT [Catalytic activity/Vol] 30 U/L Normal 16-61 [facility] Comment on above: Performed By: #### L 501.9985, L500.4100, L100.0100, L500.4050, L501.9910 #### [facility] [address] [place], [address] AST [Catalytic activity/Vol] 16 U/L Normal 15-37 [facility] Comment on above: Performed By: #### L 501.9985, L500.4100, L100.0100, L500.4050, L501.9910 #### [facility] [address] [place], [address] Bilirubin [Mass/Vol] 0.60 mg/dL Normal 0.20-1.00 [facility] Comment on above: Result Comment: For patients on eltrombopag therapy, use of Dimension [place] TBIL is not recommended. Performed By: #### L 501.9985, L500.4100, L100.0100, L500.4050, L501.9910 #### [facility] [address] [place], [address] BUN/CRE 15.8 RATIO Normal 10-20 [facility] Comment on above: Performed By: #### L 501.9985, L500.4100, L100.0100, L500.4050, L501.9910 #### [facility] [address] [place], [address] CA,Total 9.3 mg/dL Normal 8.5-10.1 [facility] Comment on above: Performed By: #### L 501.9985, L500.4100, L100.0100, L500.4050, L501.9910 #### [facility] [address] [place], [address] Chloride [Moles/Vol] 106 mmol/L Normal 98-107 [facility] Comment on above: Performed By: #### L 501.9985, L500.4100, L100.0100, L500.4050, L501.9910 #### [facility] [address] [place], [address] CO2 [Moles/Vol] 25.0 mmol/L Normal 21.0-32.0 [facility] Comment on above: Performed By: #### L 501.9985, L500.4100, L100.0100, L500.4050, L501.9910 #### [facility] [address] [place], [address] Creatinine [Mass/Vol] 1.01 mg/dL Normal 0.70-1.30 [facility] Comment on above: Result Comment: The validity of the calculated GFR GFRAA in patients over 70 years has not been determined. Clinical correlation is essential. Performed By: #### L 501.9985, L500.4100, L100.0100, L500.4050, L501.9910 #### [facility] [address] [place], [address] EST GFR - AA 94 mL/min Normal >60 [facility] Comment on above: Result Comment: Afri can [place] GFR Calc Performed By: #### L 501.9985, L500.4100, L100.0100, L500.4050, L501.9910 #### [facility] [address] [place], [address] GAP 7 Normal 5-15 [facility] Comment on above: Performed By: #### L 501.9985, L500.4100, L100.0100, L500.4050, L501.9910 #### [facility] [address] [place], [address] GFR/1.73 sq M.predicted among non-blacks MDRD (S/P/Bld) [Vol rate/Area] 78 mL/min/{1.73_m2} Normal >60 [facility] Comment on above: Result Comment: Non- GFR Calc Performed By: #### L 501.9985, L500.4100, L100.0100, L500.4050, L501.9910 #### [facility] [address] [place], [address] Globulin (S) [Mass/Vol] 3.3 g/dL Normal 2.2-4.2 [facility] Comment on above: Performed By: #### L 501.9985, L500.4100, L100.0100, L500.4050, L501.9910 #### [facility] [address] [place], [address] Glucose [Mass/Vol] 280 mg/dL High 74-106 [facility] Comment on above: Result Comment: Gluc ose result greater than or equal to 200 mg/dL suggests DIABETES MELLITUS per A.D.A. criteria. Performed By: #### L 501.9985, L500.4100, L100.0100, L500.4050, L501.9910 #### [facility] [address] [place], [address] Potassium [Moles/Vol] 4.6 mmol/L Normal 3.5-5.1 [facility] Comment on above: Performed By: #### L 501.9985, L500.4100, L100.0100, L500.4050, L501.9910 #### [facility] [address] [place], [address] Sodium [Moles/Vol] 138 mmol/L Normal 136-145 [facility] Comment on above: Performed By: #### L 501.9985, L500.4100, L100.0100, L500.4050, L501.9910 #### [facility] [address] [place], [address] T PROT 7.2 g/dL Normal 6.4-8.2 [facility] Comment on above: Performed By: #### L 501.9985, L500.4100, L100.0100, L500.4050, L501.9910 #### [facility] [address] [place], [address] Urea nitrogen [Mass/Vol] 16 mg/dL Normal 7-18 [facility] Comment on above: Performed By: #### L 501.9985, L500.4100, L100.0100, L500.4050, L501.9910 #### [facility] [address] [place], [address] Hemoglobin A1con 09-07-2024 HbA1c (Bld) [Mass fraction] 6.0 % High 3.8-5.6 [facility] Comment on above: Result Comment: Norm al < 5.7 % Prediabetic 5.7 - 6.4 % Diabetic >or= 6.5 % Please note range changes. Performed By: #### L 501.9985, L500.4100, L100.0100, L500.4050, L501.9910 ####[facility] [address] [place], [address] Lipid Profileon 09-07-2024 Cholesterol [Mass/Vol] 162 mg/dL Normal 200 [facility] Comment on above: Result Comment: <200 mg/dL Desirable 200-240 mg/dL Borderline >240 mg/dL High Risk Performed By: #### L 501.9985, L500.4100, L100.0100, L500.4050, L501.9910 #### [facility] [address] [place], [address] Cholesterol in HDL [Mass/Vol] 42 mg/dL Normal [facility] Comment on above: Result Comment: The drugs N-Acetylcysteine and Metamizole may falsely depress this assay. Reference Range HDL <40 mg/dL Low HDL Cholesterol HDL >or= 60 mg/dL High HDL Cholesterol Performed By: #### L 501.9985, L500.4100, L100.0100, L500.4050, L501.9910 #### [facility] [address] [place], [address] Cholesterol in LDL [Mass/Vol] 69 mg/dL Normal 0-130 [facility] Comment on above: Performed By: #### L 501.9985, L500.4100, L100.0100, L500.4050, L501.9910 #### [facility] [address] [place], [address] Cholesterol in VLDL [Mass/Vol] 51 mg/dL High 5-40 [facility] Comment on above: Performed By: #### L 501.9985, L500.4100, L100.0100, L500.4050, L501.9910 #### [facility] [address] [place], [address] Triglyceride [Mass/Vol] 254 mg/dL High [facility] Comment on above: Result Comment: The drugs N-Acetylcysteine and Metamizole may falsely depress this assay. Serum Triglycerides Reference Interval Normal <150 mg/dL Borderline high 150 - 199 mg/dL High 200 - 499 mg/dL Very High > or = 500 mg/dL Performed By: #### L 501.9985, L500.4100, L100.0100, L500.4050, L501.9910 #### [facility] [address] [place], [address] PSA,Total - Annual Screenon 09-07-2024 PSA,TOT SCREEN 0.87 ng/mL Normal 0.00-4.00 [facility] Comment on above: Result Comment: This test was performed using the TPSA assay method for the [employer] chemistry system. Values obtained with different assay methods cannot be used interchangably. When changing PSA assays in the course of monitoring a patient, additional sequential testing should be carried out to confirm baseline values. Performed By: #### L 501.9985, L500.4100, L100.0100, L500.4050, L501.9910 #### [facility] [address] [place], [address] STREP A MOLECULAR (POC)on Procedural Control Valid [facility] Strep A (POCT) Negative Negative [facility] Stress Reporton 02-28-2024 Stress Report [facility] [address] [place] [address] MR#: [id number] Acct: [id number] Name: SHARIF CADE Rep #: [id number] : [id number] From: Juventino Weber MD Primary Care: COREY PedroC Status: REG CLI Referring Dr: Juventino Weber MD Sex: M C Stress Test Report Exercise myocardial perfusion stress test. [68-year-old man with a history of coronary artery disease.] Stress protocol: Resting EKG demonstrates [normal sinus rhythm with a rate of 54] bpm resting blood pressure is [138/82] mmHg. The patient exercised according to the regular Mason protocol for a total duration of [9 minutes] attaining a maximum heart rate of [130 ] bpm which was [84%] of maximum predicted heart rate; the maximum workload was [10.1 ] metabolic equivalents. At rest there were no ST or T wave changes noted to suggest ischemia and at peak exercise upsloping ST changes only were noted which did not meet the criteria for ischemia. No clinical angina was noted the test was terminated due to the target heart rate being achieved/fatigue. The peak blood pressure was [164/80] mmHg. Rate-pressure product was [76965]. Myocardial perfusion protocol. [14.3] mCi of technetium 99m sestamibi was injected at rest. The patient exercised according to regular Mason protocol for total duration of [9 minutes] and at peak exercise [44.7] mCi of technetium 99m sestamibi was injected stress images were obtained stress and rest images were reconstructed in comparing the short axis vertical long and horizontal long axis. Gated images were also obtained. Perfusion SPECT analysis: Review of the stress images demonstrate normal uptake of tracer noted in all areas of the myocardium with a large defect involving the mid to distal anterior wall. The resting images similarly demonstrate normal uptake of tracer noted in all areas of the myocardium except the mid inferior wall to distal inferior wall. No areas of reversibility are noted to suggest ischemia. Minimal periinfarct ischemia noted. Gated SPECT analysis: The gated ejection fraction is [60%]. Conclusion: [Normal exercise myocardial perfusion stress test at a highworkload.] Previous inferior infarct noted. [Preserved] ejection fraction. 02/28/24 1007 Date Juventino Weber MD CC: TANK PROCESSOR-C Tamar Atwood; Dr. Juventino Weber MD Date Dictated: 02/28/24 1002 Date Transcribed: 02/28/241001 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: CO Signed Normal [facility] Absolute lymphocyte countOrd ered By: Tamar Atwood on 08-23-2023 Lymphocytes Auto (Unsp spec) [#/Vol] 1.89 10*3/uL 0.83-4.51 [facility] Basophil percentageOrdered B y: Tamar Juradoson on 08-23-2023 Basophils/100 WBC (Bld) 0.6 % 0-1 [facility] Bilirubin [Mass/Vol] 0.90 mg/dL 0.20-1.00 [facility] Comment on above: For patients on eltr ombopag therapy, use of Dimension [place] TBIL is not recommended. Chloride [Moles/Vol] 106 mmol/L 98-107 [facility] Cholesterol [Mass/Vol] 152 mg/dL <200 [facility] Comment on above: <200 mg/dL Desirable 200-240 mg/dL Borderline >240 mg/dL High Risk Eosinophils/100 WBC (Bld) 1.1 % 0-5 [facility] Glucose [Mass/Vol] 117 mg/dL 74-106 [facility] Comment on above: Fasting Glucose resu lt from 100 to 125 mg/dL suggests IMPAIRED HOMEOSTASIS per A.D.A. criteria. Neutrophils (Bld) [#/Vol] 5.6 10*3/uL 2.0-7.7 [facility] Neutrophils/100 WBC (Bld) 68.4 % 47-70 [facility] Potassium [Moles/Vol] 4.0 mmol/L 3.5-5.1 [facility] Protein [Mass/Vol] 6.8 g/dL 6.4-8.2 [facility] Sodium [Moles/Vol] 139 mmol/L 136-145 [facility] Triglyceride [Mass/Vol] 263 mg/dL <199 [facility] Comment on above: The drugs N-Acetylcy steine and Metamizole may falsely depress this assay.Serum Triglycerides Reference Interval Normal <150 mg/dL Borderline high 150 - 199 mg/dL High 200 - 499 mg/dL Very High > or = 500 mg/dL WBC (Bld) [#/Vol] 8.2 10*3/uL 4.4-11.0 [facility] Blood erythrocytes count (nu mber/volume)Ordered By: Tamar Atwood on 08-23-2023 RBC (Bld) [#/Vol] 5.08 10*6/uL 4.6-6.2 [facility] Blood hemoglobin measurement (mass/volume)Ordered By: Tamar Atwood on 08-23-2023 Hemoglobin (Bld) [Mass/Vol] 15.5 g/dL 13.0-16.5 [facility] Blood lymphocytes/100 leukoc ytesOrdered By: Tamar Atwood on 08-23-2023 Lymphocytes/100 WBC (Bld) 23.1 % 19-41 [facility] Blood monocytes/100 leukocyt esOrdered By: Tamar Atwood on 08-23-2023 Monocytes/100 WBC (Bld) 6.3 % 0-10 [facility] Blood platelet mean volumeOr dered By: Tamar Atwood on 08-23-2023 Platelet mean volume (Bld) [Entitic vol] 9.8 fL 6.2-12.0 [facility] Determination of erythrocyte mean corpuscular volume (MCV)Ordered By: Tamar Atwood on 08-23-2023 MCV (RBC) [Entitic vol] 91.9 fL 80-94 [facility] Hematocrit Auto (Bld) [Volum e fraction]Ordered By: Tamar Atwood on 08-23-2023 Hematocrit (Bld) [Volume fraction] 46.7 % 40-54 [facility] - Chemistry and C hemistry - challengeOrdered By: Tamar Atwood on 08-23-2023 ALP [Catalytic activity/Vol] 73 U/L 45-117 [facility] ALT [Catalytic activity/Vol] 29 U/L 16-61 [facility] CO2 [Moles/Vol] 28.0 mmol/L 21.0-32.0 [facility] Globulin (S) [Mass/Vol] 3.1 g/dL 2.2-4.2 [facility] Urea nitrogen/Creatinine [Mass ratio] 17.9 mg/mg 10-20 [facility] - Hematology and Cell countson 08-23-2023 HbA1c (Bld) [Mass fraction] 6.1 % 4.2-6.3 [facility] - Hematology and Cell countsOrdered By: Tamar Atwood on 08-23-2023 Erythrocyte distribution width (RBC) [Entitic vol] 40.8 fL 35.1-43.9 [facility] Erythrocyte distribution width (RBC) [Ratio] 12.1 % 11.6-14.6 [facility] Immature granulocytes/100 WBC (Bld) 0.500 % 0.0-0.9 [facility] Comment on above: IG% - Immature Granu locytes (promyelocytes, myelocytes and metamyelocytes) > 1% indicates that a LEFT SHIFT is Present. MCH (RBC) [Entitic mass] 30.5 pg 27.0-32.0 [facility] Nucleated RBC/100 WBC (Bld) [Ratio] 0 % 0-5 [facility] MCHC Auto (RBC) [Mass/Vol]Or dered By: Tamar Atwood on 08-23-2023 MCHC (RBC) [Mass/Vol] 33.2 g/dL 32-36 [facility] No Panel InformationOrdered By: Tamar Atwood on 08-23-2023 Estimated GFR (MDRD) Amer 109 mL/min >60 [facility] Comment on above: GFR Calc Estimated GFR (MDRD) Non-Af Amer 90 mL/min >60 [facility] Comment on above: Non- GFR Calc Prostate Specific Antigen Total 0.78 ng/mL 0.0-4.0 [facility] Comment on above: This test was perfor med using the TPSA assay method [facility]. Values obtained with differentassay methods cannot be used interchangably.When changing PSA assays in the course of monitoring apatient, additional sequential testing should be carriedout to confirm baseline values. Platelets bldOrdered By: Collin Atwood on 08-23-2023 Platelets (Bld) [#/Vol] 220 10*3/uL 150-450 [facility] Serum or plasma albumin kimberley urement (mass/volume)Ordered By: Tamar Atwood on 08-23-2023 Albumin [Mass/Vol] 3.7 g/dL 3.2-5.0 [facility] Serum or plasma albumin/glob ulin mass ratioOrdered By: Tamar Atwood on 08-23-2023 Albumin/Globulin [Mass ratio] 1.2 {ratio} 0.9-2.4 [facility] Serum or plasma calcium kimberley urement (mass/volume)Ordered By: Tamar Atwood on 08-23-2023 Calcium [Mass/Vol] 9.3 mg/dL 8.5-10.1 [facility] Serum or plasma cholesterol in HDL measurement (mass/volume)Ordered By: Tamar Atwood on 08-23-2023 Cholesterol in HDL [Mass/Vol] 36 mg/dL >40 [facility] Comment on above: The drugs N-Acetylcy steine and Metamizole may falsely depress this assay. Reference Range HDL <40 mg/dL Low HDL Cholesterol HDL >or= 60 mg/dL High HDL Cholesterol Serum or plasma cholesterol in VLDL measurement (mass/volume)Ordered By: Tamar Atwood on 08-23-2023 Cholesterol in VLDL [Mass/Vol] 53 mg/dL 5-40 [facility] Serum or plasma creatinine m easurement (mass/volume)Ordered By: Tamar Atwood on 08-23-2023 Creatinine [Mass/Vol] 0.90 mg/dL 0.70-1.30 [facility] Comment on above: The validity of the calculated GFR & GFRAA in patients over 70 years has not been determined. Clinical correlation is essential. Serum or plasma low density lipoprotein (LDL) cholesterol measurement (mass/volume)Ordered By: Tamar Atwood on 08-23-2023 Cholesterol in LDL [Mass/Vol] 63 mg/dL 0-130 [facility] Serum or plasma urea nitroge n measurement (mass/volume)Ordered By: Tamar Atwood on 08-23-2023 Urea nitrogen [Mass/Vol] 16 mg/dL 7-18 [facility] Thin prep Papanicolaou smear with manual screeningOrdered By: Tamar Atwood on 08-23-2023 Thin prep Papanicolaou smear with manual screening 13 U/L 15-37 [facility] Thin prep Papanicolaou smear with manual screening 5 5-15 [facility] Absolute lymphocyte countOrd ered By: Tamar Atwood on 10-18-2022 Lymphocytes Auto (Unsp spec) [#/Vol] 1.74 10*3/uL 0.83-4.51 [facility] Basophil percentageOrdered B y: Tamar Atwood on 10-18-2022 Basophils/100 WBC (Bld) 0.5 % 0-1 [facility] Bilirubin [Mass/Vol] 0.40 mg/dL 0.20-1.00 [facility] Comment on above: For patients on eltr ombopag therapy, use of Dimension [place] TBIL is not recommended. Chloride [Moles/Vol] 104 mmol/L 98-107 [facility] Cholesterol [Mass/Vol] 157 mg/dL <200 [facility] Comment on above: <200 mg/dL Desirable 200-240 mg/dL Borderline >240 mg/dL High Risk Eosinophils/100 WBC (Bld) 1.2 % 0-5 [facility] Glucose [Mass/Vol] 135 mg/dL 74-106 [facility] Comment on above: Fasting Glucose resu lt greater than or equal to 126 mg/dL suggests DIABETES MELLITUS per A.D.A. criteria. Neutrophils (Bld) [#/Vol] 5.0 10*3/uL 2.0-7.7 [facility] Neutrophils/100 WBC (Bld) 66.8 % 47-70 [facility] Potassium [Moles/Vol] 4.1 mmol/L 3.5-5.1 [facility] Protein [Mass/Vol] 6.9 g/dL 6.4-8.2 [facility] Sodium [Moles/Vol] 140 mmol/L 136-145 [facility] Triglyceride [Mass/Vol] 288 mg/dL <199 [facility] Comment on above: The drugs N-Acetylcy steine and Metamizole may falsely depress this assay.Serum Triglycerides Reference Interval Normal <150 mg/dL Borderline high 150 - 199 mg/dL High 200 - 499 mg/dL Very High > or = 500 mg/dL WBC (Bld) [#/Vol] 7.5 10*3/uL 4.4-11.0 [facility] Blood erythrocytes count (nu mber/volume)Ordered By: Tamar Atwood on 10-18-2022 RBC (Bld) [#/Vol] 4.97 10*6/uL 4.6-6.2 [facility] Blood hemoglobin measurement (mass/volume)Ordered By: Tamar Atwood on 10-18-2022 Hemoglobin (Bld) [Mass/Vol] 15.8 g/dL 13.0-16.5 [facility] Blood lymphocytes/100 leukoc ytesOrdered By: Tamar Atwood on 10-18-2022 Lymphocytes/100 WBC (Bld) 23.4 % 19-41 [facility] Blood monocytes/100 leukocyt esOrdered By: Tamar Atwood on 10-18-2022 Monocytes/100 WBC (Bld) 7.8 % 0-10 [facility] Blood platelet mean volumeOr dered By: Tamar Atwood on 10-18-2022 Platelet mean volume (Bld) [Entitic vol] 9.8 fL 6.2-12.0 [facility] Determination of erythrocyte mean corpuscular volume (MCV)Ordered By: Tamar Atwood on 10-18-2022 MCV (RBC) [Entitic vol] 93.2 fL 80-94 [facility] Hematocrit Auto (Bld) [Volum e fraction]Ordered By: Tamar Atwood on 10-18-2022 Hematocrit (Bld) [Volume fraction] 46.3 % 40-54 [facility] - Chemistry and C hemistry - challengeOrdered By: Tamar Atwood on 10-18-2022 ALP [Catalytic activity/Vol] 76 U/L 45-117 [facility] ALT [Catalytic activity/Vol] 33 U/L 16-61 [facility] CO2 [Moles/Vol] 28.0 mmol/L 21.0-32.0 [facility] Globulin (S) [Mass/Vol] 3.1 g/dL 2.2-4.2 [facility] Urea nitrogen/Creatinine [Mass ratio] 13.8 mg/mg 10-20 [facility] - Hematology and Cell countsOrdered By: Tamar Atwood on 10-18-2022 Erythrocyte distribution width (RBC) [Entitic vol] 42.6 fL 35.1-43.9 [facility] Erythrocyte distribution width (RBC) [Ratio] 12.4 % 11.6-14.6 [facility] Immature granulocytes/100 WBC (Bld) 0.300 % 0.0-0.9 [facility] Comment on above: IG% - Immature Granu locytes (promyelocytes, myelocytes and metamyelocytes) > 1% indicates that a LEFT SHIFT is Present. MCH (RBC) [Entitic mass] 31.8 pg 27.0-32.0 [facility] Nucleated RBC/100 WBC (Bld) [Ratio] 0 % 0-5 [facility] MCHC Auto (RBC) [Mass/Vol]Or dered By: Tamar Atwood on 10-18-2022 MCHC (RBC) [Mass/Vol] 34.1 g/dL 32-36 [facility] No Panel InformationOrdered By: Tamar Atwood on 10-18-2022 C-Reactive Protein High Sensitivity 0.67 mg/L <3.00 [facility] Comment on above: Low Relative Risk of CVD <1.0 mg/L Average Relative Risk of CVD 1.0 - 3.0 mg/L High Relative Risk of CVD >3.0 mg/L Estimated GFR (MDRD) Amer 87 mL/min >60 [facility] Comment on above: GFR Calc Estimated GFR (MDRD) Non-Af Amer 72 mL/min >60 [facility] Comment on above: Non- GFR Calc Prostate Specific Antigen Screen 0.86 ng/mL 0.00-4.00 [facility] Comment on above: This test was perfor med using the TPSA assay method for [employer] chemistry system. Values obtained with differentassay methods cannot be used interchangably.When changing PSA assays in the course of monitoring apatient, additional sequential testing should be carriedout to confirm baseline values. Platelets bldOrdered By: Collin Atwood on 10-18-2022 Platelets (Bld) [#/Vol] 225 10*3/uL 150-450 [facility] Serum or plasma albumin kimberley urement (mass/volume)Ordered By: Tamar Atwood on 10-18-2022 Albumin [Mass/Vol] 3.8 g/dL 3.2-5.0 [facility] Serum or plasma albumin/glob ulin mass ratioOrdered By: Tamar Atwood on 10-18-2022 Albumin/Globulin [Mass ratio] 1.2 {ratio} 0.9-2.4 [facility] Serum or plasma calcium kimberley urement (mass/volume)Ordered By: Tamar Atwood on 10-18-2022 Calcium [Mass/Vol] 8.9 mg/dL 8.5-10.1 [facility] Serum or plasma cholesterol in HDL measurement (mass/volume)Ordered By: Tamar Atwood on 10-18-2022 Cholesterol in HDL [Mass/Vol] 34 mg/dL >40 [facility] Comment on above: The drugs N-Acetylcy steine and Metamizole may falsely depress this assay. Reference Range HDL <40 mg/dL Low HDL Cholesterol HDL >or= 60 mg/dL High HDL Cholesterol Serum or plasma cholesterol in VLDL measurement (mass/volume)Ordered By: Tamar Atwood on 10-18-2022 Cholesterol in VLDL [Mass/Vol] 58 mg/dL 5-40 [facility] Serum or plasma creatinine m easurement (mass/volume)Ordered By: Tamar Atwood on 10-18-2022 Creatinine [Mass/Vol] 1.09 mg/dL 0.70-1.30 [facility] Comment on above: The validity of the calculated GFR & GFRAA in patients over 70 years has not been determined. Clinical correlation is essential. Serum or plasma low density lipoprotein (LDL) cholesterol measurement (mass/volume)Ordered By: Tamar Atwood on 10-18-2022 Cholesterol in LDL [Mass/Vol] 65 mg/dL 0-130 [facility] Serum or plasma urea nitroge n measurement (mass/volume)Ordered By: Tamar Atwood on 10-18-2022 Urea nitrogen [Mass/Vol] 15 mg/dL 7-18 [facility] Thin prep Papanicolaou smear with manual screeningOrdered By: Tamar Atwood on 10-18-2022 Thin prep Papanicolaou smear with manual screening 16 U/L 15-37 [facility] Thin prep Papanicolaou smear with manual screening 8 5-15 [facility] Whole blood hemoglobin A1c/t otal hemoglobin ratio (mass fraction)Ordered By: Tamar Atwood on 10-18-2022 HbA1c (Bld) [Mass fraction] 5.9 % 3.8-5.6 [facility] Comment on above: Normal < 5.7 % Predi abetic 5.7 - 6.4 % Diabetic >or= 6.5 % Please note range changes. MRI Cervical Spine w/oon MRI Cervical Spine w/o Submitted clinica l information: Patient complains of neck pain, arm and finger pain post on 6 years may be longer. Study Technique: MRI cervical spine was performed using Sagittal T2 and T1 imaging as well as axial T2 and T1 images. Sagittal STIR images were also obtained. Comparisons: None. Findings: Vertebral body height: No compression deformities. Disc height and Disc signal: Disc desiccation at all levels. Cord signal: No abnormal signal changes are demonstrated. Alignment: Straightening is noted. Bone marrow signal: Modic endplate changes at C5 and C6 vertebra. Craniovertebral junction: No evidence of a Chiari malformation. Paraspinal soft tissues: No abnormal inflammation or lesion detected Axial Imaging: C2-3: No significant disc bulge is seen. Facet articulations are intact. The neural foramina are patent. No evidence of canal stenosis at this level. C3-4: Circumferential bulge with 2 mm broad based posterior protrusion is seen indenting the thecal sac. There is severe bilateral neural foraminal and central canal stenosis. Facet articulations are intact. C4-5: Circumferential bulge with 1.5 mm broad based posterior protrusion is seen indenting the thecal sac. There is moderate bilateral neural foraminal stenosis. Facet articulations are intact. No evidence of canal stenosis at this level. C5-6: Circumferential bulge with 2.5 mm broad based posterior protrusion is seen indenting the thecal sac. There is moderate bilateral neural foraminal and mild central canal stenosis. Facet articulations are intact. C6-7: Circumferential bulge with 1.5 mm broad based posterior protrusion is seen indenting the thecal sac. There is moderate bilateral neural foraminal stenosis. Facet articulations are intact. No evidence of canal stenosis at this level. C7-T1: No significant disc bulge is seen. Facet articulations are intact. The neural foramina are patent. No evidence of canal stenosis at this level. Final Impressions: 1. 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 2. Circumferential bulge with broad based posterior herniation at C4-5 and C6-7 causing moderate bilateral neural foraminal stenosis. Referring physician: Please call [phone] if you would like to speak with the radiologist about this report. 1045 Normal [facility] Absolute lymphocyte counton 10-06-2021 Lymphocytes Auto (Unsp spec) [#/Vol] 1.80 10*3/uL 0.83-4.51 [facility] Work Phone: Basophil percentageon 2021 Basophils/100 WBC (Bld) 1.0 % 0-1 [facility] Work Phone: [phone] Bilirubin [Mass/Vol] 0.50 mg/dL 0.20-1.00 [facility] Work Phone: [phone] Comment on above: For patients on eltr ombopag therapy, use of Dimension [place] TBIL is not recommended. Chloride [Moles/Vol] 107 mmol/L 98-107 [facility] Work Phone: Cholesterol [Mass/Vol] 168 mg/dL <200 [facility] Work Phone: Comment on above: <200 mg/dL Desirable 200-240 mg/dL Borderline >240 mg/dL High Risk Eosinophils/100 WBC (Bld) 0.9 % 0-5 [facility] Work Phone: Glucose [Mass/Vol] 90 mg/dL 74-106 [facility] Work Phone: Neutrophils (Bld) [#/Vol] 4.1 10*3/uL 2.0-7.7 [facility] Work Phone: Neutrophils/100 WBC (Bld) 61.7 % 47-70 [facility] Work Phone: Potassium [Moles/Vol] 4.3 mmol/L 3.5-5.1 [facility] Work Phone: [phone] Protein [Mass/Vol] 6.9 g/dL 6.4-8.2 [facility] Work Phone: Sodium [Moles/Vol] 139 mmol/L 136-145 [facility] Work Phone: Triglyceride [Mass/Vol] 170 mg/dL [facility] Work Phone: [phone] Comment on above: The drugs N-Acetylcy steine and Metamizole may falsely depress this assay.Serum Triglycerides Reference Interval Normal <150 mg/dL Borderline high 150 - 199 mg/dL High 200 - 499 mg/dL Very High > or = 500 mg/dL WBC (Bld) [#/Vol] 6.7 10*3/uL 4.4-11.0 [facility] Work Phone: Blood erythrocytes count (nu mber/volume)on 10-06-2021 RBC (Bld) [#/Vol] 4.61 10*6/uL 4.6-6.2 [facility] Work Phone: Blood hemoglobin measurement (mass/volume)on 10-06-2021 Hemoglobin (Bld) [Mass/Vol] 14.3 g/dL 13.0-16.5 [facility] Work Phone: Blood lymphocytes/100 leukoc yteson 10-06-2021 Lymphocytes/100 WBC (Bld) 27.0 % 19-41 [facility] Work Phone: Blood monocytes/100 leukocyt eson 10-06-2021 Monocytes/100 WBC (Bld) 8.8 % 0-10 [facility] Work Phone: Blood platelet mean volumeon 10-06-2021 Platelet mean volume (Bld) [Entitic vol] 9.6 fL 6.2-12.0 [facility] Work Phone: Determination of erythrocyte mean corpuscular volume (MCV)on 10-06-2021 MCV (RBC) [Entitic vol] 90.2 fL 80-94 [facility] Work Phone: Hematocrit Auto (Bld) [Volum e fraction]on 10-06-2021 Hematocrit (Bld) [Volume fraction] 41.6 % 40-54 [facility] Work Phone: Laboratory - Chemistry and C hemistry - challengeon 10-06-2021 ALP [Catalytic activity/Vol] 87 U/L 45-117 [facility] Work Phone: ALT [Catalytic activity/Vol] 24 U/L 16-61 [facility] Work Phone: CO2 [Moles/Vol] 30.0 mmol/L 21.0-32.0 [facility] Work Phone: Globulin (S) [Mass/Vol] 3.2 g/dL 2.2-4.2 [facility] Work Phone: Urea nitrogen/Creatinine [Mass ratio] 14.2 mg/mg 10-20 [facility] Work Phone: Laboratory - Hematology and Cell countson 10-06-2021 Erythrocyte distribution width (RBC) [Entitic vol] 43.8 fL 35.1-43.9 [facility] Work Phone: Erythrocyte distribution width (RBC) [Ratio] 13.5 % 11.6-14.6 [facility] Work Phone: Immature granulocytes/100 WBC (Bld) 0.600 % 0.0-0.9 [facility] Work Phone: Comment on above: IG% - Immature Granu locytes (promyelocytes, myelocytes and metamyelocytes) > 1% indicates that a LEFT SHIFT is Present. MCH (RBC) [Entitic mass] 31.0 pg 27.0-32.0 [facility] Work Phone: Nucleated RBC/100 WBC (Bld) [Ratio] 0 % 0-5 [facility] Work Phone: MCHC Auto (RBC) [Mass/Vol]on 10-06-2021 MCHC (RBC) [Mass/Vol] 34.4 g/dL 32-36 [facility]: No Panel Informationon 10-06 Estimated GFR (MDRD) Amer 107 mL/min >60 [facility] Work Phone: Comment on above: GFR Calc Estimated GFR (MDRD) Non-Af Amer 88 mL/min >60 [facility] Work Phone: Comment on above: Non- GFR Calc Prostate Specific Antigen Total 0.86 ng/mL 0.0-4.0 [facility] Work Phone: Comment on above: This test was perfor med using the TPSA assay method for [employer] chemistry system. Values obtained with differentassay methods cannot be used interchangably.When changing PSA assays in the course of monitoring apatient, additional sequential testing should be carriedout to confirm baseline values. Platelets bldon 10-06-2021 Platelets (Bld) [#/Vol] 237 10*3/uL 150-450 [facility] Work Phone: Serum or plasma albumin kimberley urement (mass/volume)on 10-06-2021 Albumin [Mass/Vol] 3.7 g/dL 3.2-5.0 [facility] Work Phone: Serum or plasma albumin/glob ulin mass ratioon 10-06-2021 Albumin/Globulin [Mass ratio] 1.2 {ratio} 0.9-2.4 [facility] Work Phone: Serum or plasma calcium kimberley urement (mass/volume)on 10-06-2021 Calcium [Mass/Vol] 9.4 mg/dL 8.5-10.1 [facility] Work Phone: Serum or plasma cholesterol in HDL measurement (mass/volume)on 10-06-2021 Cholesterol in HDL [Mass/Vol] 31 mg/dL [facility] Work Phone: Comment on above: The drugs N-Acetylcy steine and Metamizole may falsely depress this assay. Reference Range HDL <40 mg/dL Low HDL Cholesterol HDL >or= 60 mg/dL High HDL Cholesterol Serum or plasma cholesterol in VLDL measurement (mass/volume)on 10-06-2021 Cholesterol in VLDL [Mass/Vol] 34 mg/dL 5-40 [facility] Work Phone: Serum or plasma creatinine m easurement (mass/volume)on 10-06-2021 Creatinine [Mass/Vol] 0.92 mg/dL 0.70-1.30 [facility] Work Phone: Comment on above: The validity of the calculated GFR & GFRAA in patients over 70 years has not been determined. Clinical correlation is essential. Serum or plasma low density lipoprotein (LDL) cholesterol measurement (mass/volume)on 10-06-2021 Cholesterol in LDL [Mass/Vol] 103 mg/dL 0-130 [facility] Work Phone: Serum or plasma urea nitroge n measurement (mass/volume)on 10-06-2021 Urea nitrogen [Mass/Vol] 13 mg/dL 7-18 [facility] Work Phone: Thin prep Papanicolaou smear with manual screeningon 10-06-2021 Thin prep Papanicolaou smear with manual screening 19 U/L 15-37 [facility] Work Phone: Thin prep Papanicolaou smear with manual screening 2 5-15 [facility] Work Phone: Whole blood hemoglobin A1c/t otal hemoglobin ratio (mass fraction)on 10-06-2021 HbA1c (Bld) [Mass fraction] 6.6 % 3.8-5.6 [facility] Work Phone: Comment on above: Normal < 5.7 % Predi abetic 5.7 - 6.4 % Diabetic >or= 6.5 % Please note range changes. XR CHEST 2V FRONTAL/LATon XR CHEST 2V FRONTAL/LAT * * *Final Repor t* * * DATE OF EXAM: May 17 2021 8:52AM LDX 5291 - XR CHEST 2V FRONTAL/LAT / PROCEDURE REASON: hemoptysis * * * * Physician Interpretation * * * * EXAMINATION: CHEST RADIOGRAPH (2 VIEW FRONTAL and LATERAL) CLINICAL HISTORY: Hemoptysis. MQ: [id number] EXAM DATE/TIME: 05/17/2021 8:52 AM COMPARISON: 01/27/2016 and 10/17/2019 RESULT: Lines, tubes, and devices: None. Lungs and pleura: No consolidation. There is some minimal blunting of the left costophrenic angle on the lateral radiograph, which may be related to trace effusion or pleural thickening. No pneumothorax. Stable 11 mm nodule in the right lower lung, unchanged since 2016 and likely benign. Cardiomediastinal silhouette: Normal cardiomediastinal silhouette. Bones and soft tissues: Degenerative changes are present within the thoracic spine. Aortic atherosclerosis. IMPRESSION: No acute findings. There is some minimal blunting of the left costophrenic angle on the lateral radiograph, which may be related to trace effusion or pleural thickening. This is unchanged. 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: [facility] Transcribe Date/Time: May 17 2021 1:42P Dictated by : CHERISE BUSTILLO MD This examination was interpreted and the report reviewed and electronically signed by: CHERISE BUSTILLO MD on May 17 2021 1:45PM EST [id number] CN Normal [facility] XR SHLDR >/=3V AP/OZZIE AP/OTH R RTon 07-26-2020 XR SHLDR >/=3V AP/OZZIE AP/OTHR RT Final Report DATE OF EXAM: Jul 26 2020 10:56AM LDX 5253 - XR SHLDR >/=3V AP/OZZIE AP/OTHR RT / PROCEDURE REASON: Right shoulder pain Physician Interpretation HISTORY: Right shoulder pain TECHNIQUE: 4 views right shoulder COMPARISON: None. RESULT: There is no acute fracture or dislocation. Chronic mild deformity superolateral humeral head/greater tuberosity could be related to Hill-Sachs deformity from remote anterior shoulder dislocation or this could be related to remote injury. Small osteophyte formation at the humeral head neck junction without glenohumeral joint space narrowing indicates mild degenerative change. There is mild acromioclavicular joint degenerative change with small osteophytes without joint space narrowing. 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: [facility] Transcribe Date/Time: Jul 27 2020 9:40A Dictated by : DEVORA SAUCEDA MD This examination was interpreted and the report reviewed and electronically signed by: DEVORA SAUCEDA MD on Jul 27 2020 9:43AM EST Normal [facility] Glucose Meteron 10-19-2019 Glucose [Mass/Vol] 150 mg/dL High 70-99 [facility] Comment on above: Result Comment: RAVIN N OTIFIED Performed By: #### G LMET #### [address] [address] Hemogramon 10-19-2019 Erythrocyte distribution width (RBC) [Ratio] 12.3 % Normal 11.6-14.4 [facility] Comment on above: Performed By: #### T ROP #### [facility] [address] [place] [address] Hematocrit (Bld) [Volume fraction] 39.3 % Low 40.1-51.0 [facility] Comment on above: Performed By: #### T ROP #### [facility] [address] [place] [address] Hemoglobin (Bld) [Mass/Vol] 13.6 g/dL Low 13.7-17.5 [facility] Comment on above: Performed By: #### T ROP #### [place] [address] MCH (RBC) [Entitic mass] 31.2 pg Normal 25.7-32.2 [facility] Comment on above: Performed By: #### T ROP #### [place] [address] MCHC (RBC) [Mass/Vol] 34.6 % Normal 32.3-36.5 [facility] Comment on above: Performed By: #### T ROP #### [place] [address] MCV (RBC) [Entitic vol] 90.1 fL Normal 83.2-95.6 [facility] Comment on above: Performed By: #### T ROP #### [place] [address] Platelet mean volume (Bld) [Entitic vol] 10.4 fL Normal 8.7-12.0 [facility] Comment on above: Performed By: #### T ROP #### [address] [address] Platelets (Bld) [#/Vol] 163 thou/cmm Normal 141-365 [facility] Comment on above: Performed By: #### T ROP #### [place] [id number] RBC (Bld) [#/Vol] 4.36 mil/cmm Low 4.63-6.08 [facility] Comment on above: Performed By: #### T ROP #### [place] [id number] RDW SD 40.3 fl Normal 36.1-45.8 [facility] Comment on above: Performed By: #### T ROP #### [place] [id number] WBC (Bld) [#/Vol] 9.56 thou/cmm High 4.23-9.07 [facility] Comment on above: Performed By: #### T ROP #### [place] [address] MDRD GFRon 10-19-2019 GFR/1.73 sq M predicted among non-blacks MDRD (S/P/Bld) [Vol rate/Area] mL/min/{1.73_m2} Normal >60mL/min/1. 73m2 [facility] Comment on above: Result Comment: If t he patient is , multiply the result by 1.210. Performed By: #### T ROP #### [place] [address] Renal Panelon 10-19-2019 Anion gap [Moles/Vol] 10 mmol/L Normal 8-16 [facility] Comment on above: Performed By: #### R ENAL #### [place] [address] Potassium [Moles/Vol] 3.5 mmol/L Normal 3.5-5.1 [facility] Comment on above: Result Comment: SPEC IMEN SLIGHTLY HEMOLYZED Performed By: #### R ENAL #### [place] [address] Creatinine [Mass/Vol] 0.65 mg/dL Low 0.67-1.17 [facility] Comment on above: Result Comment: Use of this assay is not recommended for patients undergoing treatment with phenindione, due to the potential for falsely depressed results. Performed By: #### R ENAL #### [facility] [address] [place], [place] [address] Phosphate [Mass/Vol] 2.3 mg/dL Low 2.5-4.9 [facility] Comment on above: Performed By: #### R ENAL #### [facility] [address] [place], [place] [address] Albumin [Mass/Vol] 2.9 g/dL Low 3.4-5.0 [facility] Comment on above: Performed By: #### R ENAL #### [facility] [address] [place], [place] [address] CO2 [Moles/Vol] 23 mmol/L Normal 21-32 [facility] Comment on above: Performed By: #### R ENAL #### [facility] [address] [place], [place] [address] Glucose [Mass/Vol] 236 mg/dL High 70-99 [facility] Comment on above: Performed By: #### R ENAL #### [facility] [address] [place], [place] [address] Urea nitrogen [Mass/Vol] 11 mg/dL Normal 7-18 [facility] Comment on above: Performed By: #### R ENAL #### [facility] [address] [place], [place] [address] Calcium [Mass/Vol] 8.6 mg/dL Normal 8.5-10.1 [facility] Comment on above: Performed By: #### R ENAL #### [facility] [address] [place], [place] [address] Chloride [Moles/Vol] 108 mmol/L High 98-107 [facility] Comment on above: Performed By: #### R ENAL #### [facility] [address] [place], [place] [address] Sodium [Moles/Vol] 137 mmol/L Normal 136-145 [facility] Comment on above: Performed By: #### R ENAL #### [facility] [address] [place], [place] [address] Basic Panelon 10-18-2019 Creatinine [Mass/Vol] 0.72 mg/dL Normal 0.67-1.17 [facility] Comment on above: Result Comment: Use of this assay is not recommended for patients undergoing treatment with phenindione, due to the potential for falsely depressed results. Performed By: #### T ROP #### [facility] [address] [place], [place] [address] Anion gap [Moles/Vol] 12 mmol/L Normal 8-16 [facility] Comment on above: Performed By: #### T ROP #### [facility] [address] [place], [place] [address] CO2 [Moles/Vol] 23 mmol/L Normal 21-32 [facility] Comment on above: Performed By: #### T ROP #### [facility] [address] [place], [place] [address] Glucose [Mass/Vol] 202 mg/dL High 70-99 [facility] Comment on above: Performed By: #### T ROP #### [address] [address] Urea nitrogen [Mass/Vol] 12 mg/dL Normal 7-18 [facility] Comment on above: Performed By: #### T ROP #### [address] [address] Calcium [Mass/Vol] 8.7 mg/dL Normal 8.5-10.1 [facility] Comment on above: Performed By: #### T ROP #### [facility] [address] [place], [place] [address] Chloride [Moles/Vol] 106 mmol/L Normal 98-107 [facility] Comment on above: Performed By: #### T ROP #### [address] [address] Potassium [Moles/Vol] 3.9 mmol/L Normal 3.5-5.1 [facility] Comment on above: Performed By: #### T ROP #### [address] [address] Sodium [Moles/Vol] 137 mmol/L Normal 136-145 [facility] Comment on above: Performed By: #### T ROP #### [address] [address] Hemogramon 10-18-2019 Erythrocyte distribution width (RBC) [Ratio] 12.5 % Normal 11.6-14.4 [facility] Comment on above: Performed By: #### C BC1 #### [facility] [address] [place] [address] Hematocrit (Bld) [Volume fraction] 39.9 % Low 40.1-51.0 [facility] Comment on above: Performed By: #### C BC1 #### [facility] [address] [place] [address] Hemoglobin (Bld) [Mass/Vol] 13.5 g/dL Low 13.7-17.5 [facility] Comment on above: Performed By: #### C BC1 #### [facility] [address] [place] [address] MCH (RBC) [Entitic mass] 30.7 pg Normal 25.7-32.2 [facility] Comment on above: Performed By: #### C BC1 #### [facility] [address] [place] [address] MCHC (RBC) [Mass/Vol] 33.8 % Normal 32.3-36.5 [facility] Comment on above: Performed By: #### C BC1 #### [facility] [address] [place] [address] MCV (RBC) [Entitic vol] 90.7 fL Normal 83.2-95.6 [facility] Comment on above: Performed By: #### C BC1 #### [facility] [address] [place] [address] Platelet mean volume (Bld) [Entitic vol] 10.5 fL Normal 8.7-12.0 [facility] Comment on above: Performed By: #### C BC1 #### [facility] [address] [place], [place] [address] Platelets (Bld) [#/Vol] 170 thou/cmm Normal 141-365 [facility] Comment on above: Performed By: #### C BC1 #### [facility] [address] [place], [place] [address] RBC (Bld) [#/Vol] 4.40 mil/cmm Low 4.63-6.08 [facility] Comment on above: Performed By: #### C BC1 #### [facility] [address] [place] [address] RDW SD 40.9 fl Normal 36.1-45.8 [facility] Comment on above: Performed By: #### C BC1 #### [facility] [address] [place] [address] WBC (Bld) [#/Vol] 10.58 thou/cmm High 4.23-9.07 [facility] Comment on above: Performed By: #### C BC1 #### [facility] [address] [place] [address] Hgb A1con 10-18-2019 HbA1c (Bld) [Mass fraction] 9.0 % High 4.2-6.3 [facility] Comment on above: Result Comment: Meth od is National Glycohemoglobin Standardization Program (NGSP) compliant. Performed By: #### H A1C #### [facility] [address] [place] [address] HbA1c (Bld) [Mass fraction] 212 mg/dl Normal [facility] Comment on above: Performed By: #### H A1C #### [facility] [address] [place] [address] Lipid Profileon 10-18-2019 Cholesterol in HDL [Mass/Vol] 28 mg/dL Normal >40 [facility] Comment on above: Performed By: #### H A1C #### [facility] [address] [place] [address] Cholesterol in LDL [Mass/Vol] 113 mg/dL Normal [facility] Comment on above: Result Comment: No C AD and with fewer than 2 CAD risk factors <160 mg/dL No CAD but with 2 or more CAD risk factors <130 mg/dL Definite CAD or other atherosclerotic disease <100 mg/dL Performed By: #### H A1C #### [facility] [address] [place] [address] Cholesterol in LDL/Cholesterol in HDL [Mass ratio] 4.0 Normal 1.1-4.8 [facility] Comment on above: Result Comment: LDL, VLDL,LDL/HDL, Invalid if Triglyceride >400 Performed By: #### H A1C #### [place] [address] Cholesterol in VLDL [Mass/Vol] 33 mg/dL Normal <50 Desired [facility] Comment on above: Performed By: #### H A1C #### [place] [address] Cholesterol.total/Choles terol in HDL [Mass ratio] 6.2 {ratio} Normal 2.1-7.3 [facility] Comment on above: Performed By: #### H A1C #### [place] [address] Triglyceride [Mass/Vol] 164 mg/dL High 0-149 [facility] Comment on above: Result Comment: < 20 0 Desirable Result invalid if not a fasting specimen. Performed By: #### H A1C #### [place] [address] Cholesterol [Mass/Vol] 174 mg/dL Normal 0-199 [facility] Comment on above: Result Comment: <200 Desirable 200-240 Borderline >240 High Performed By: #### H A1C #### [place] [address] Troponin Ion 10-18-2019 Troponin I.cardiac [Mass/Vol] 98.800 ng/mL Critically high 0.015-0.045 [facility] Comment on above: Performed By: #### H A1C #### [place] [address] Troponin I.cardiac [Mass/Vol] 127.000 ng/mL Critically high 0.015-0.045 [facility] Comment on above: Performed By: #### H A1C #### [place] [address] ACT Arterial Panel (i-STAT)o n 10-17-2019 Kaolin ACT ( i-STAT) 307 sec High 74-137 [facility] Comment on above: Performed By: #### A CTIA #### [address], [place] [address] Amylase Bloodon 10-17-2019 Amylase [Catalytic activity/Vol] 47 U/L Normal 25-115 [facility] Comment on above: Performed By: #### T ROP #### [facility] [address] [place] [address] CPKon 10-17-2019 CPK 91 U/L Normal 39-308 [facility] Comment on above: Performed By: #### L CK #### [place] [address] Comprehensive Panelon 2019 Albumin [Mass/Vol] 3.6 g/dL Normal 3.4-5.0 [facility] Comment on above: Performed By: #### H A1C #### [place] [address] ALP [Catalytic activity/Vol] 81 U/L Normal 46-116 [facility] Comment on above: Performed By: #### H A1C #### [place] [address] ALT-SGPT Blood 54 U/L Normal 14-63 [facility] Comment on above: Performed By: #### H A1C #### [place] [address] Anion gap [Moles/Vol] 13 mmol/L Normal 8-20 [facility] Comment on above: Performed By: #### H A1C #### [place] [address] AST-SGOT Blood 23 U/L Normal 15-37 [facility] Comment on above: Performed By: #### H A1C #### [place] [address] Bilirubin Ql (U) 0.6 mg/dL Normal 0.2-1.0 [facility] Comment on above: Result Comment: Use of this assay is not recommended for patients undergoing treatment with eltrombopag due to the potential for falsely elevated results. Performed By: #### H A1C #### [place] [address] Calcium [Mass/Vol] 9.2 mg/dL Normal 8.5-10.1 [facility] Comment on above: Performed By: #### H A1C #### [facility] [address] [place], [place] [address] CO2 Blood 27 mEq/L Normal 21-32 [facility] Comment on above: Performed By: #### H A1C #### [facility] [address] [place], [place] [address] Creatinine [Mass/Vol] 0.81 mg/dL Normal 0.67-1.17 [facility] Comment on above: Result Comment: Use of this assay is not recommended for patients undergoing treatment with phenindione, due to the potential for falsely depressed results. Performed By: #### H A1C #### [facility] [address] [place], [place] [address] Glucose [Mass/Vol] 211 mg/dL High 70-99 [facility] Comment on above: Performed By: #### H A1C #### [facility] [address] [place], [place] [address] Protein [Mass/Vol] 6.8 g/dL Normal 6.4-8.2 [facility] Comment on above: Performed By: #### H A1C #### [facility] [address] [place], [place] [address] Urea nitrogen [Mass/Vol] 12 mg/dL Normal 7-18 [facility] Comment on above: Performed By: #### H A1C #### [facility] [address] [place], [place] [address] Urea nitrogen/Creatinine [Mass ratio] 15 mg/mg Normal 10-20 [facility] Comment on above: Performed By: #### H A1C #### [facility] [address] [place], [place] [address] Chloride [Moles/Vol] 103 mmol/L Normal 98-109 [facility] Comment on above: Result Comment: Test ing performed on an [employer] i-STAT. Performed By: #### H A1C #### [facility] [address] [place], [place] [address] Potassium [Moles/Vol] 3.6 mmol/L Normal 3.5-4.9 [facility] Comment on above: Result Comment: Test ing performed on an [employer] i-STAT. Performed By: #### H A1C #### [facility] [address] [place] [address] Sodium [Moles/Vol] 139 mmol/L Normal 138-146 [facility] Comment on above: Result Comment: Test ing performed on an [employer] i-STAT. Performed By: #### H A1C #### [place] [address] D-Dimer Quantitativeon 10-16 D-Dimer Quantitative 377 ng/mL(FEU) Normal <450 [facility] Comment on above: Result Comment: 500 ng/mL FEU is the D-dimer cutoff to exclude DVT (deep vein thrombosis)and PE (pulmonary embolism)in patients with a low pre-test probability. Supplemental Comment: In patients over 50 years with a low Pre-test probability for DVT and/or PE, an age-adjusted D-dimer cutoff can be calculated as [age X 10] ng/mL FEU. For example, a patient of 88 years would have an age-adjusted D-dimer of 880 ng/mL FEU. For patients with a suspected DVT, a D-dimer level below 500 ng/mL FEU has a negative predictive value of >=99.0%, a sensitivity of >=97.0% and a specificity of >=35.8%. Performed By: #### L DMR #### [place] [address] Hemogram/Diffon 10-17-2019 Abs. Baso 0.03 thou/cmm Normal 0.00-0.08 [facility] Comment on above: Performed By: #### H A1C #### [place] [address] Abs. [place] 0.52 thou/cmm Normal 0.20-1.00 [facility] Comment on above: Performed By: #### H A1C #### [place] [address] Abs. Neut (ANC) 3.08 thou/cmm Normal 3.00-5.67 [facility] Comment on above: Performed By: #### H A1C #### [facility] [address] [place], [place] [address] Basophils/100 WBC (Bld) 0.5 % Normal [facility] Comment on above: Performed By: #### H A1C #### [facility] [address] [place], [place] [address] Eosinophils (Bld) [#/Vol] 0.07 thou/cmm Normal 0.00-0.41 [facility] Comment on above: Performed By: #### H A1C #### [facility] [address] [place], [place] [address] Eosinophils/100 WBC (Bld) 1.3 % Normal [facility] Comment on above: Performed By: #### H A1C #### [facility] [address] [place], [place] [address] Erythrocyte distribution width (RBC) [Ratio] 12.5 % Normal 11.5-15.9 [facility] Comment on above: Performed By: #### H A1C #### [facility] [address] [place], [place] [address] Hematocrit (Bld) [Volume fraction] 42.3 % Normal 42.0-52.0 [facility] Comment on above: Performed By: #### H A1C #### [facility] [address] [place], [place] [address] Hemoglobin (Bld) [Mass/Vol] 15.0 g/dL Normal 14.0-18.0 [facility] Comment on above: Performed By: #### H A1C #### [facility] [address] [place], [place] [address] Lymphocytes (Bld) [#/Vol] 1.80 thou/cmm Normal 1.50-3.65 [facility] Comment on above: Performed By: #### H A1C #### [facility] [address] [place], [place] [address] Lymphocytes/100 WBC (Bld) 32.8 % Normal [facility] Comment on above: Performed By: #### H A1C #### [facility] [address] [place], [place] [address] MCH (RBC) [Entitic mass] 31.8 pg High 27.0-31.0 [facility] Comment on above: Performed By: #### H A1C #### [facility] [address] [place], [place] [address] MCHC (RBC) [Mass/Vol] 35.5 % Normal 32.0-36.0 [facility] Comment on above: Performed By: #### H A1C #### [facility] [address] [place] [address] MCV (RBC) [Entitic vol] 89.8 fL Normal 80.0-94.0 [facility] Comment on above: Performed By: #### H A1C #### [facility] [address] [place] [address] Monocytes/100 WBC (Bld) 9.5 % Normal [facility] Comment on above: Performed By: #### H A1C #### [facility] [address] [place] [address] Platelet mean volume (Bld) [Entitic vol] 9.8 fL Normal 7.1-10.5 [facility] Comment on above: Performed By: #### H A1C #### [facility] [address] [place] [address] Platelets (Bld) [#/Vol] 188 thou/cmm Normal 150-400 [facility] Comment on above: Performed By: #### H A1C #### [facility] [address] [place] [address] RBC (Bld) [#/Vol] 4.71 mil/cmm Normal 4.60-6.20 [facility] Comment on above: Performed By: #### H A1C #### [facility] [address] [place] [address] Seg Neutrophil 55.9 % Normal [facility] Comment on above: Performed By: #### H A1C #### [facility] [address] [place] [address] WBC (Bld) [#/Vol] 5.5 thou/cmm Normal 4.8-10.5 [facility] Comment on above: Performed By: #### H A1C #### [facility] [address] [place], [place] [address] Lipase Bloodon 10-17-2019 Lipase Blood 128 U/L Normal 73-393 [facility] Comment on above: Performed By: #### H A1C #### [facility] [address] [place], [place] [address] MDRD eGFRon 10-17-2019 GFR/1.73 sq M predicted among non-blacks MDRD (S/P/Bld) [Vol rate/Area] mL/min/{1.73_m2} Normal >60mL/min/1. 73m2 [facility] Comment on above: Result Comment: If t he patient is , multiply the result by 1.210. Performed By: #### H A1C #### [place] [address] Magnesium Bloodon 10-17-2019 Magnesium [Mass/Vol] 1.6 mg/dL Low 1.8-2.4 [facility] Comment on above: Performed By: #### T ROP #### [place] [address] N-terminal Pro-BNPon 020 Natriuretic peptide B (d) [Mass/Vol] 65.8 pg/mL Normal [facility] Comment on above: Result Comment: Norm al Reference Range: Patients <75 yrs old <125pg/ml Patients >=75 yrs old <450 pg/ml Performed By: #### L PBNP #### [address] [address] Troponin Ion 10-17-2019 Troponin I.cardiac [Mass/Vol] 111.000 ng/mL Critically high 0.015-0.045 [facility] Comment on above: Performed By: #### H A1C #### [place] [address] Troponin I.cardiac [Mass/Vol] 97.800 ng/mL Critically high 0.015-0.045 [facility] Comment on above: Performed By: #### T ROP #### [place] [address] Troponin I.cardiac [Mass/Vol] 66.900 ng/mL Critically high 0.015-0.045 [facility] Comment on above: Performed By: #### T ROP #### [facility] [address] [place] [address] Troponin I.cardiac [Mass/Vol] ng/mL Normal <=0.07 [facility] Comment on above: Performed By: #### L TRP #### [facility] [address] [place], [place] [address] XR CHEST 1V FRONTALon 2019 XR CHEST 1V FRONTAL * * *Final Report* * * DATE OF EXAM: Oct 17 2019 10:05AM LDX 5290 - XR CHEST 1V FRONTAL / PROCEDURE REASON: Chest pain or SOB, pleurisy or effusion suspected * * * * Physician Interpretation * * * * EXAMINATION: XR CHEST 1V FRONTAL CLINICAL HISTORY: Pt. states chest pain on and off x 3-4 months, pain in bilateral arms and hands, SOB Technique: XR CHEST 1V FRONTAL -- NOT APPLICABLE with 1 views on 1 images Comparison: 01/27/2016 RESULT: Shallow lung volumes with bibasilar atelectasis. No focal consolidation, pleural effusion or pneumothorax. Stable right basilar 8mm density right lower lung since 2015. Normal cardiomediastinal silhouette. No acute osseous findings. IMPRESSION: No acute process. 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: HADLEY Transcribe Date/Time: Oct 17 2019 10:07A Dictated by : CHRISTINA YBARRA MD This examination was interpreted and the report reviewed and electronically signed by: CHRISTINA YBARRA MD on Oct 17 2019 10:10AM EST Normal [facility] Vital Signs Date Time Vital Sign Value Performing Clinician Adam javier 01-28-2025 08:10-0400 Body mass index (BMI) [Ratio] 27.8 kg/m2 Tamar Atwood NP-C Work Phone: [facility] 01-28-2025 08:10-0400 Body weight 87.99 kg Tamar NICOLEC Work Phone: [facility] 01-28-2025 08:10-0400 Diastolic blood pressure 63 mm[Hg] Tamar NICOLEC Work Phone: [facility] 01-28-2025 08:10-0400 Heart rate 61 /min Tamar Atwood TANK PROCESSOR-C Work Phone: [facility] 01-28-2025 08:10-0400 Respiratory rate 18 /min Tamar Atwood TANK PROCESSOR-C Work Phone: [facility] 01-28-2025 08:10-0400 Systolic blood pressure 94 mm[Hg] Tamar Atwood TANK PROCESSOR-C Work Phone: [facility] 07-16-2024 10:49-0500 Body mass index (BMI) [Ratio] 26.88 kg/m2 Fidelina Kaye READING COACH.TELEVISION TUBE INSPECTOR Work Phone: [facility] 07-16-2024 10:49-0500 Body temperature 98.1 [degF] Fidelina Kaye READING COACH.TELEVISION TUBE INSPECTOR Work Phone: [facility] 07-16-2024 10:49-0500 Body weight 89.9 kg Fidelina Kaye READING COACH.TELEVISION TUBE INSPECTOR Work Phone: [facility] 07-16-2024 10:49-0500 Diastolic blood pressure 69 mm[Hg] Fidelina Kaye READING COACH.TELEVISION TUBE INSPECTOR Work Phone: [facility] 07-16-2024 10:49-0500 Heart rate 73 /min Fidelina Kaye READING COACH.TELEVISION TUBE INSPECTOR Work Phone: [facility] 07-16-2024 10:49-0500 SaO2% (BldA) [Mass fraction] 97 % Fidelina Kaye READING COACH.TELEVISION TUBE INSPECTOR Work Phone: [facility] 07-16-2024 10:49-0500 Systolic blood pressure 114 mm[Hg] Fidelina Kaye READING COACH.TELEVISION TUBE INSPECTOR Work Phone: [facility] 08-23-2023 14:33-0500 Body height 177.8 cm [facility] 08-23-2023 14:33-0500 Body mass index (BMI) [Ratio] 28.3 kg/m2 [facility] 08-23-2023 14:33-0500 Body temperature 97.2 [degF] [facility] 08-23-2023 14:33-0500 Body weight 89.35 kg [facility] 08-23-2023 14:33-0500 Diastolic blood pressure 70 mm[Hg] [facility] 08-23-2023 14:33-0500 Heart rate 83 /min [facility] 08-23-2023 14:33-0500 Respiratory rate 18 /min [facility] 08-23-2023 14:33-0500 SaO2% (BldA) [Mass fraction] 97 % [facility] 08-23-2023 14:33-0500 Systolic blood pressure 122 mm[Hg] [facility] 10-18-2022 16:50-0500 Body height 177.8 cm [facility] 10-18-2022 16:50-0500 Body mass index (BMI) [Ratio] 28.8 kg/m2 [facility] 10-18-2022 16:50-0500 Body temperature 97.5 [degF] [facility] 10-18-2022 16:50-0500 Body weight 91.17 kg [facility] 10-18-2022 16:50-0500 Diastolic blood pressure 70 mm[Hg] [facility] 10-18-2022 16:50-0500 Heart rate 89 /min [facility] 10-18-2022 16:50-0500 Respiratory rate 18 /min [facility] 10-18-2022 16:50-0500 SaO2% (BldA) [Mass fraction] 95 % [facility] 10-18-2022 16:50-0500 Systolic blood pressure 118 mm[Hg] [facility] 08-07-2022 14:30-0500 Body mass index (BMI) [Ratio] 29 kg/m2 [facility] 08-07-2022 14:30-0500 Body temperature 97.2 [degF] [facility] 08-07-2022 14:30-0500 Body weight 91.62 kg [facility] 08-07-2022 14:30-0500 Diastolic blood pressure 70 mm[Hg] [facility] 08-07-2022 14:30-0500 Heart rate 80 /min [facility] 08-07-2022 14:30-0500 Respiratory rate 18 /min [facility] 08-07-2022 14:30-0500 SaO2% (BldA) [Mass fraction] 98 % [facility] 08-07-2022 14:30-0500 Systolic blood pressure 138 mm[Hg] [facility] 02-15-2022 09:25-0400 Body height 177.8 cm TANK PROCESSOR-C Tamar Atwood TANK PROCESSOR Work Phone: [facility] Work Phone: 02-15-2022 09:25-0400 Body mass index (BMI) [Ratio] 28.3 kg/m2 TANK PROCESSOR-C Tamar Atwood TANK PROCESSOR Work Phone: [facility] Work Phone: 02-15-2022 09:25-0400 Body weight 89.35 kg TANK PROCESSOR-C Tamar Atwood TANK PROCESSOR Work Phone: [facility] Work Phone: 02-15-2022 09:25-0400 Diastolic blood pressure 74 mm[Hg] TANK PROCESSOR-C Tamar Atwood TANK PROCESSOR Work Phone: [facility] Work Phone: 02-15-2022 09:25-0400 Heart rate 63 /min TANK PROCESSOR-C Tamar Atwood TANK PROCESSOR Work Phone: [facility] Work Phone: 02-15-2022 09:25-0400 Respiratory rate 18 /min TANK PROCESSOR-C Tamar Atwood TANK PROCESSOR Work Phone: [facility] Work Phone: 02-15-2022 09:25-0400 Systolic blood pressure 111 mm[Hg] TANK PROCESSOR-C Tamar Atwood TANK PROCESSOR Work Phone: [facility] Work Phone: 11-22-2021 14:49-0400 Body height 177.8 cm TANK PROCESSOR-C Tamar Atwood TANK PROCESSOR Work Phone: [facility] Work Phone: 11-22-2021 14:49-0400 Body mass index (BMI) [Ratio] 28.7 kg/m2 TANK PROCESSOR-C Tamar Atwood TANK PROCESSOR Work Phone: [facility] Work Phone: 11-22-2021 14:49-0400 Body temperature 97.8 [degF] TANK PROCESSOR-C Tamar Atwood TANK PROCESSOR Work Phone: [facility] Work Phone: 11-22-2021 14:49-0400 Body weight 90.71 kg TANK PROCESSOR-C Tamar Atwood TANK PROCESSOR Work Phone: [facility] Work Phone: 11-22-2021 14:49-0400 Diastolic blood pressure 79 mm[Hg] TANK PROCESSOR-C Tamar Atwood TANK PROCESSOR Work Phone: [facility] Work Phone: 11-22-2021 14:49-0400 Heart rate 82 /min TANK PROCESSOR-C Tamar Atwood TANK PROCESSOR Work Phone: [facility] Work Phone: 11-22-2021 14:49-0400 Respiratory rate 18 /min TANK PROCESSOR-C Tamar Atwood TANK PROCESSOR Work Phone: [facility] Work Phone: 11-22-2021 14:49-0400 SaO2% (BldA) [Mass fraction] 97 % TANK PROCESSOR-C Tamar Atwood TANK PROCESSOR Work Phone: [facility] Work Phone: 11-22-2021 14:49-0400 Systolic blood pressure 110 mm[Hg] TANK PROCESSOR-C Tamar Juradoson TANK PROCESSOR Work Phone: [facility] Work Phone: 10-10-2021 11:51-0500 Body height 177.8 cm TANK PROCESSOR-C Tamar Atwood TANK PROCESSOR Work Phone: [facility] Work Phone: 10-10-2021 11:51-0500 Body mass index (BMI) [Ratio] 28.7 kg/m2 TANK PROCESSOR-C Tamar Atwood TANK PROCESSOR Work Phone: [facility] Work Phone: 10-10-2021 11:51-0500 Body weight 90.71 kg TANK PROCESSOR-C Tamar Atwood TANK PROCESSOR Work Phone: [facility] Work Phone: 10-10-2021 11:51-0500 Diastolic blood pressure 79 mm[Hg] TANK PROCESSOR-C Tamar Atwood TANK PROCESSOR Work Phone: [facility] Work Phone: 10-10-2021 11:51-0500 Heart rate 82 /min TANK PROCESSOR-C Tamar Atwood TANK PROCESSOR Work Phone: [facility] Work Phone: 10-10-2021 11:51-0500 Respiratory rate 16 /min TANK PROCESSOR-C Tamar Atwood TANK PROCESSOR Work Phone: [facility] Work Phone: 10-10-2021 11:51-0500 SaO2% (BldA) [Mass fraction] 97 % TANK PROCESSOR-C Tamar Atwood TANK PROCESSOR Work Phone: [facility] Work Phone: 10-10-2021 11:51-0500 Systolic blood pressure 110 mm[Hg] TANK PROCESSOR-C Tamar Atwood TANK PROCESSOR Work Phone: [facility] Work Phone: 10-06-2021 17:41-0500 Body mass index (BMI) [Ratio] 28.8 kg/m2 TANK PROCESSOR-C Tamar Atwood TANK PROCESSOR Work Phone: [facility] Work Phone: 10-06-2021 17:41-0500 Body temperature 97.3 [degF] TANK PROCESSOR-C Tamar Atwood TANK PROCESSOR Work Phone: [facility] Work Phone: 10-06-2021 17:41-0500 Body weight 91.17 kg TANK PROCESSOR-C Tamar Atwood TANK PROCESSOR Work Phone: [facility] Work Phone: 10-06-2021 17:41-0500 Diastolic blood pressure 80 mm[Hg] TANK PROCESSOR-C Tamar Atwood TANK PROCESSOR Work Phone: [facility] Work Phone: 10-06-2021 17:41-0500 Heart rate 74 /min TANK PROCESSOR-C Tamar Atwood TANK PROCESSOR Work Phone: [facility] Work Phone: 10-06-2021 17:41-0500 Respiratory rate 18 /min TANK PROCESSOR-C Tamar Atwood TANK PROCESSOR Work Phone: [facility] Work Phone: 10-06-2021 17:41-0500 SaO2% (BldA) [Mass fraction] 97 % TANK PROCESSOR-C Tamar Atwood TANK PROCESSOR Work Phone: [facility] Work Phone: 10-06-2021 17:41-0500 Systolic blood pressure 130 mm[Hg] TANK PROCESSOR-C Tamar Atwood TANK PROCESSOR Work Phone: [facility] Work Phone: Encounters Encounter Date Encounter Type Care Provider Facility Start: 02-25-2025 ambulatory Kip Faith TANK PROCESSOR Facility :[facility] Start: 02-18-2025 ambulatory Kip Faith TANK PROCESSOR Facility :[facility] Start: 01-28-2025 End: 01-28-2025 ambulatory Tamar Atwood TANK PROCESSOR-C Work Phone: [facility] Work Phone: Start: 01-28-2025 End: 01-28-2025 Patient encounter procedure Kip Faith TANK PROCESSOR-C -Laboratory Work Phone: Start: 01-28-2025 End: 01-28-2025 Patient encounter procedure Kip Faith TANK PROCESSOR-C -[facility] Work Phone: Start: 01-28-2025 End: 01-28-2025 ambulatory Tamar Atwood TANK PROCESSOR-C Work Phone: [facility] Work Phone: Start: 01-28-2025 End: 01-28-2025 ambulatory Kip Faith TANK PROCESSOR Facility:[facility] Start: 09-07-2024 End: 09-07-2024 ambulatory Tamar Atwood TANK PROCESSOR Facility:[facility] Start: 07-16-2024 End: 07-16-2024 Office outpatient new 30 minutes Fidelina Kaye APRN.TELEVISION TUBE INSPECTOR Work Phone: [facility] Comment on above: Pharyngitis, unspeci fied etiology (Primary Dx) Start: 02-28-2024 ambulatory [facility] Facility:[facility] Start: 02-28-2024 End: 02-28-2024 ambulatory [facility] Facility:[facility] Start: 08-23-2023 End: 08-23-2023 ambulatory [facility] Work Phone: Start: 08-23-2023 End: 08-23-2023 Patient encounter procedure [facility]-Laboratory, Specimen Work Phone: Start: 10-18-2022 End: 10-18-2022 ambulatory [facility] Work Phone: Start: 10-18-2022 End: 10-18-2022 Patient encounter procedure [facility]-Laboratory, Specimen Start: 03-08-2022 Non-patient / Non-visit TANK PROCESSOR-C Toni Atwood TANK PROCESSOR Work Phone: [facility] Start: 03-08-2022 End: 03-08-2022 Patient encounter procedure TANK PROCESSOR-Myriam Atwood TANK PROCESSOR Work Phone: [facility]-Cardiovascula r Services Start: 02-15-2022 End: 02-15-2022 Patient encounter procedure TANK PROCESSOR-Myriam Atwood TANK PROCESSOR Work Phone: [facility] Start: 12-25-2021 End: 12-25-2021 Patient encounter procedure TANK PROCESSOR-Myriam Atwood TANK PROCESSOR Work Phone: [facility]opa[facility] Start: 11-23-2021 End: 11-23-2021 Patient encounter procedure TANK PROCESSOR-Myriam Atwood TANK PROCESSOR Work Phone: [facility]-MRI - [facility] Start: 11-08-2021 End: 11-08-2021 Patient encounter procedure TANK PROCESSOR-Myriam Atwood TANK PROCESSOR Work Phone: [facility] Start: 11-03-2021 End: 11-03-2021 Patient encounter procedure TANK PROCESSOR-Myriam Atwood TANK PROCESSOR Work Phone: [facility]-Radiology, [facility] Start: 10-10-2021 End: 10-10-2021 Patient encounter procedure TANK PROCESSOR-Myriam Atwood TANK PROCESSOR Work Phone: [facility] Start: 10-06-2021 End: 10-06-2021 Patient encounter procedure TANK PROCESSOR-Myriam Atwood TANK PROCESSOR Work Phone: [facility]-Laboratory, Specimen Procedures Date Procedure Procedure Detail Performing Clinician Start: 07-16-2024 STREP A MOLECULAR (POC) Fidelina Kaye APRN.TELEVISION TUBE INSPECTOR Work Phone: Start: 03-08-2022 Radionuclide imaging of perfusion of myocardium under exercise stress TANK PROCESSOR-Myriam Atwood TANK PROCESSOR Work Phone: Start: 11-03-2021 X-ray of cervical spine TANK PROCESSOR-Myriam Atwood TANK PROCESSOR Work Phone: Start: 10-18-2019 Lipid 1996 panel - S jorge or Plasma Fidelina Kaye APRN.TELEVISION TUBE INSPECTOR Work Phone: Start: 10-17-2019 History of placement of stent for coronary artery disease History of coronary artery stent placement Kip Faith TANK PROCESSOR-C Comment on above: PCI-ОЛЕГ-Mid/Distal R CA w/ 2.5 x 28 mm Synergy Stent, Prox/Mid RCA w/ 3.0 x 38 mm Synergy Stent , Distal RCA w/ 2.5 x 8 mm Synergy Stent; ОЛЕГ-Prox RCA 3.5 x 8 mm 10/17/19 Plan of Treatment Date Care Activity Detail Author Start: 2031 RSV Vaccine (1 - 1-dose 75+ series) RSV Vaccine (1 - 1-dose 75+ series) [facility] Start: 03-13-2029 Urine microalbumin profile DTaP,Tdap,Td Vaccine (2 - Td or Tdap) [facility] Start: 01-28-2025 Evaluation of diagnostic study results [facility] Start: 10-17-2024 Lipid panel Lipid Screening [facility] Start: 04-12-2024 Covid-19 Vaccine () Covid-19 Vaccine ( season) [facility] Start: 04-12-2024 Influenza vaccination Influenza Vaccine (#1) [facility] Start: 08-12-2023 Advance Directive Discussion Advance Directive Discussion [facility] Start: 10-17-2022 Diabetes Screening Diabetes Screening [facility] Start: 12-25-2021 Patient referral [facility] Work Phone: Start: 2021 Pneumococcal Vaccine: 65+ (2 of 2 - PCV) Pneumococcal Vaccine: 65+ (2 of 2 - PCV) [facility] Start: 2011 Prostate specific antigen measurement Prostate Cancer Screening Discussion [facility] Start: 2006 Shingrix Vaccine (1 of 2) Shingrix Vaccine (1 of 2) [facility] Start: 2001 Screening for malignant neoplasm of colon [facility] Start: 1974 Anxiety Screening Anxiety Screening [facility] Start: 1974 Depression Screening Depression Screening [facility] Start: 1974 Hepatitis C screening Hepatitis C Screening [facility] Start: 1956 Abdominal aortic aneurysm screening Abdominal Aortic Aneurysm Screening [facility] Basic metabolic 2008 panel with ionized calcium - Serum or Plasma [facility] CBC W Auto Different ial panel - Blood [facility] COVID & INFLUENZA A/ B & RSV PCR, ROUTINE COVID & INFLUENZA A/B & RSV PCR, ROUTINE Microbiology Routine Pharyngitis, unspecified etiology 07/16/2024 11:12 AM EST [facility] Work Phone: CTA Chest vessels WO and W contrast IV [facility] Lipid 1996 panel - S jorge or Plasma [facility] Work Phone: Magnesium measurement [facility] Natriuretic peptide. B prohormone N-Terminal [Mass/volume] in Serum or Plasma [facility] Patient referral [facility] Work Phone: Radionuclide imaging of perfusion of myocardium under exercise stress [facility] Payers Date Payer Category Payer Unknown [facility] AND BLUE [employer] ANTH MEDICARE ADVANTAGE HMO [id number] 2024-[facility] [phone] [address] [place] [address] O [id number] 2024 Self-pay [id number] 2024 Medicare [id number] Medicare [id number] Medicare [id number] Unknown [id number] Unknown [id number] Unknown [id number] Unknown [id number] Unknown [id number] Unknown [id number] Unknown [id number] Unknown [id number] Unknown [id number] Unknown [id number] Social History Date Type Detail Facility Start: 10-10-2021 End: 08-23-2023 Tobacco smoking status [facility] Unknown if ever smoked [facility] Start: 1955 Sex Assigned At Male [facility] Start: 10-17-2019 End: 09-07-2024 Tobacco smoking status COIS Ex-smoker [facility] History of tobacco use Current smoker [facility] Start: 10-17-2019 Tobacco use and exposure Smoke less tobacco non-user [facility] Start: 10-17-2019 Alcoholic beverage intake Curr ent drinker of alcohol (finding) [facility] Start: 10-17-2019 End: 05-17-2021 [facility] of [facility] Start: 10-17-2019 End: 05-17-2021 Alcohol Use Disorder Identification Test - Consumption [AUDIT-C] [facility] How often to you hav e a drink containing alcohol? Monthly or less [facility] Average Number of Drinks Not on file [facility] Start: 1955 Sex assigned at Not on file C [facility] Medical Equipment Procedure Code Equipment Code Equipment Origin al Text Equipment Identifier Dates Blood Sugar Diagnostic (Accu-Chek Guide Test Strips) strip Start: 02-06-2021 Lancets (Accu-Ch ek Fastclix Lancet Drum) [facility] Start: 10-22-2019 Blood Sugar Diagnostic (Accu-Chek Guide Test Strips) strip Start: 10-22-2019 End: 10-17-2020 Blood Sugar Diagnostic (Accu-Chek Guide Test Strips) strip Start: 10-17-2020 End: 02-06-2021 Blood Sugar Diagnostic (Accu-Chek Guide Test Strips) strip Start: 02-06-2021 Lancets (Accu-Ch ek Fastclix Lancet Drum) misc Start: 10-22-2019 Blood Sugar Diagnostic (Accu-Chek Guide Test Strips) strip Start: 10-22-2019 End: 10-17-2020 Blood Sugar Diagnostic (Accu-Chek Guide Test Strips) strip Start: 10-17-2020 End: 02-06-2021 Blood Sugar Diagnostic (Accu-Chek Guide Test Strips) strip Start: 01-06-2022 Lancets (Accu-Ch ek Fastclix Lancet Drum) misc Start: 10-22-2019 Blood Sugar Diagnostic (Accu-Chek Guide Test Strips) strip Start: 10-22-2019 End: 10-17-2020 Blood Sugar Diagnostic (Accu-Chek Guide Test Strips) strip Start: 10-17-2020 End: 02-06-2021 Blood Sugar Diagnostic (Accu-Chek Guide Test Strips) strip Start: 02-06-2021 End: 01-06-2022 Blood Sugar Diagnostic (Accu-Chek Guide Test Strips) strip Start: 01-06-2022 Lancets (Accu-Ch ek Fastclix Lancet Drum) [facility] Start: 10-22-2019 Blood Sugar Diagnostic (Accu-Chek Guide Test Strips) strip Start: 10-22-2019 End: 10-17-2020 Blood Sugar Diagnostic (Accu-Chek Guide Test Strips) strip Start: 10-17-2020 End: 02-06-2021 Blood Sugar Diagnostic (Accu-Chek Guide Test Strips) strip Start: 02-06-2021 End: 01-06-2022 Blood Sugar Diagnostic (Accu-Chek Guide Test Strips) strip Start: 01-06-2022 Lancets (Accu-Ch ek Fastclix Lancet Drum) [facility] Start: 10-22-2019 Blood Sugar Diagnostic (Accu-Chek Guide Test Strips) strip Start: 10-22-2019 End: 10-17-2020 Blood Sugar Diagnostic (Accu-Chek Guide Test Strips) strip Start: 10-17-2020 End: 02-06-2021 Blood Sugar Diagnostic (Accu-Chek Guide Test Strips) strip Start: 02-06-2021 End: 01-06-2022 Blood Sugar Diagnostic (Accu-Chek Guide Test Strips) strip Start: 09-07-2024 Lancets (Accu-Ch ek Fastclix Lancet Drum) misc Start: 10-22-2019 Blood Sugar Diagnostic (Accu-Chek Guide Test Strips) strip Start: 10-22-2019 End: 10-17-2020 Blood Sugar Diagnostic (Accu-Chek Guide Test Strips) strip Start: 10-17-2020 End: 02-06-2021 Blood Sugar Diagnostic (Accu-Chek Guide Test Strips) strip Start: 02-06-2021 End: 01-06-2022 Blood Sugar Diagnostic (Accu-Chek Guide Test Strips) strip Start: 01-06-2022 End: 12-10-2023 Blood Sugar Diagnostic (Accu-Chek Guide Test Strips) strip Start: 12-10-2023 End: 09-07-2024 Blood Sugar Diagnostic (Accu-Chek Guide Test Strips) strip Start: 09-07-2024 Lancets (Accu-Ch ek Fastclix Lancet Drum) [facility] Start: 10-22-2019 Blood Sugar Diagnostic (Accu-Chek Guide Test Strips) strip Start: 10-22-2019 End: 10-17-2020 Blood Sugar Diagnostic (Accu-Chek Guide Test Strips) strip Start: 10-17-2020 End: 02-06-2021 Blood Sugar Diagnostic (Accu-Chek Guide Test Strips) strip Start: 02-06-2021 End: 01-06-2022 Blood Sugar Diagnostic (Accu-Chek Guide Test Strips) strip Start: 01-06-2022 End: 12-10-2023 Blood Sugar Diagnostic (Accu-Chek Guide Test Strips) strip Start: 12-10-2023 End: 09-07-2024 Clinical Notes 10-17-2019 to 01-28-2025 Note Date & Type Note Facility 01-28-2025 Evaluation note Diagnosis Onset Date Resolution Chest pain acute January 28 8:19am Diabetes type 2, uncontrolled chronic January 28, 2025 8:19am Essential (primary) hypertension chronic January 28, 2025 8:19am History of coronary artery stent placement October 17, 2019 chronic January 28, 2025 8:19am Hyperlipidemia chronic January 28, 2025 8:19am Ischemic cardiomyopathy chronic January 28, 2025 8:19am [facility] Work Phone: [phone]) 635-402512-05-2024 History of Present illness Narrative* Fidelina Kaye APRN.TELEVISION TUBE INSPECTOR - 07/16/2024 10:41 AM EST This note was created using [employer]. Subjective Sharif Cade is a 69 year old male. HPI by patient: Sharif Cade is a 69 year old presenting to the office with the complaint of viral symptoms. Started last night. Associated symptoms include sore throat, congestion when blowing his nose, and pain to the right forehead that just started while in the office. Denies cough, new body aches, new fatigue, and fever. Covid Immunization Dates Overdue - Covid-19 Vaccine ( season) Never done No completion, postpone, frequency change, or communication history exists for this topic. Sick contacts: none. Smoking history/second hand smoke: none. OTC not used yet. No antibiotic use in the last 60 days. ALLERGIES No Known Allergies No family history on file. Social History Tobacco Use Smoking status: Former Smokeless tobacco: Never Vaping Use Vaping status: Never Used Alcohol use: Yes Drug use: Not Currently Active Ambulatory Problems Acute myocardial infarction (HCC) Date Noted: 10/17/2019 Resolved Ambulatory Problems No Resolved Ambulatory Problems Past Medical History: No date: GERD (gastroesophageal reflux disease) Review of Systems Constitutional: Negative. HENT: Positive for congestion and sore throat. Negative for ear pain. Eyes: Negative. Respiratory: Negative. Cardiovascular: Negative. Gastrointestinal: Negative. Endocrine: Negative. Genitourinary: Negative. Musculoskeletal: Negative. Skin: Negative. Neurological: Negative. Objective BP 114/69 Pulse 73 Temp 36.7 C (98.1 F) Wt 89.9 kg (198 lb 3.1 oz) SpO2 97% BMI 26.88 kg/m Physical Exam Vitals reviewed. Constitutional: General: He is awake. He is not in acute distress. Appearance: He is not ill-appearing, toxic-appearing or diaphoretic. HENT: Head: Normocephalic and atraumatic. Right Ear: Tympanic membrane, ear canal and external ear normal. Left Ear: Ear canal and external ear normal. There is impacted cerumen. Nose: Nose normal. Right Sinus: No maxillary sinus tenderness or frontal sinus tenderness. Left Sinus: No maxillary sinus tenderness or frontal sinus tenderness. Mouth/Throat: Mouth: Mucous membranes are moist. Pharynx: Oropharynx is clear. No pharyngeal swelling, oropharyngeal exudate or posterior oropharyngeal erythema. Cardiovascular: Rate and Rhythm: Normal rate and regular rhythm. Pulmonary: Effort: Pulmonary effort is normal. Breath sounds: Normal breath sounds. Lymphadenopathy: Head: Right side of head: No submandibular or tonsillar adenopathy. Left side of head: No submandibular or tonsillar adenopathy. Cervical: No cervical adenopathy. Neurological: Mental Status: He is alert. Psychiatric: Behavior: Behavior is cooperative. Assessment and Plan (J02.9) Pharyngitis, unspecified etiology (primary encounter diagnosis) Plan: STREP A MOLECULAR (POC), COVID & INFLUENZA A/B & RSV PCR, ROUTINE Education on viral vs bacterial infections. Most viral infections will last 10 days, sometimes 14. It is possible to have back to back viral infections. An antibiotic will not treat a virus. -Negative strep culture. -Covid/flu/rsv test for rule out, results in 24 hours, isolation in the interim. Result to smallpox hospital,code sent. -Drink lots of fluids and get plenty of rest. Gargle with salt water 3 times/day. -Vaporizers, cool mist humidifiers, warm showers, and warm fluids help open respiratory and sinus passages. Clean humidifiers daily. -OTC tylenol/ibuprofen as directed on the bottle. -Saline nasal spray as needed. Flonase twice daily can help reduce inflammation through the sinus cavities. -Cough/deep breathing education, promote clearing of the airways and good lung expansion. -Make follow up with primary care for monitoring and resolution in symptoms. -Signs that warrant an ER evaluation: Sudden change/worsening in condition, lethargy, signs of dehydration, fever greater than 102 F thatis not responding to Tylenol or ibuprofen (Motrin, Advil), drooling, difficulty swallowing, difficulty breathing, shortness of breath, chest pain, evidence of airway compromise (tripod position, neck extension, retractions), seizures, changes in mental status, or other concerns. The patient will pursue further outpatient evaluation with the primary care physician or another Urgent Care/Express Care as outlined in the after visit summary. The patient is agreeable to this planof care and follow-up instructions have been explained in detail. The patient has received these instructions in written format and have expressed an understanding of the after visit summary. Medical Decision Making: Level: 3 - Low I spent a total of 20 minutes on the date of the service which included preparing to see the patient, [id number] patient care, completing clinical documentation, obtaining and/or reviewing separately obtained history, performing a medically appropriate examination, counseling and educating the pat ient/family/caregiver, and ordering medications, tests, or procedures. This patient encounter involved the screening or treatment of novel coronavirus infection (COVID-19). [facility] Instructions* Patient Instructions* Fidelina Kaye APRN.CNP - 07/16/2024 10:41 AM EST (J02.9) Pharyngitis, unspecified etiology (primary encounter diagnosis) Plan: STREP A MOLECULAR (POC), COVID & INFLUENZA A/B & RSV PCR, ROUTINE Education on viral vs bacterial infections. Most viral infections will last 10 days, sometimes 14. It is possible to have back to back viral infections. An antibiotic will not treat a virus. -Negative strep culture. -Covid/flu/rsv test for rule out, results in 24 hours, isolation in the interim. Result to smallpox hospital,code sent. -Drink lots of fluids and get plenty of rest. Gargle with salt water 3 times/day. -Vaporizers, cool mist humidifiers, warm showers, and warm fluids help open respiratory and sinus passages. Clean humidifiers daily. -OTC tylenol/ibuprofen as directed on the bottle. -Saline nasal spray as needed. Flonase twice daily can help reduce inflammation through the sinus cavities. -Cough/deep breathing education, promote clearing of the airways and good lung expansion. -Make follow up with primary care for monitoring and resolution in symptoms. -Signs that warrant an ER evaluation: Sudden change/worsening in condition, lethargy, signs of dehydration, fever greater than 102 F thatis not responding to Tylenol or ibuprofen (Motrin, Advil), drooling, difficulty swallowing, difficulty breathing, shortness of breath, chest pain, evidence of airway compromise (tripod position, neck extension, retractions), seizures, changes in mental status, or other concerns. documented in [facility]10-[facility]-2021 NoteHNO ID: [id number] Author: RT Nasim(R) Service: ? Author Type: Technologist Type: Progress Notes Filed: 05/17/2021 8:54 AM Note Text: Radiology Service Progress Note PATIENT NAME: Sharif Cade DATE OF SERVICE: May 17, 2021 TIME: [...] IV DATA: Not applicable SIGNED BY: RT Nasim(R) May 17, 2021 8:54 [facility]03-07-2020 Evaluation note* Diagnosis Onset Date Resolution Status Hyperlipidemia acute Diabetes type 2, uncontrolled chronic Essential (primary) hypertension chronic Essential (primary) hypertension chronic History of coronary artery stent placement October 17, 2019 chronic Ischemic cardiomyopathy [facility] Work Phone: [phone]) 343-717603-07-2020 Evaluation note* Diagnosis Onset Date Resolution Status Hyperlipidemia acute Diabetes type 2, uncontrolled chronic Essential (primary) hypertension chronic Essential (primary) hypertension chronic History of coronary artery stent placement October 17, 2019 chronic Ischemic cardiomyopathy [facility] Degenerative disc disease, cervical acute Acquired skin tag acute [facility] Work Phone: Evaluation note* Diagnosis Onset Date Resolution Status Acquired skin tag acute Degenerative disc disease, cervical acute Chest pain acute Hyperlipidemia acute Essential (primary) hypertension chronic History of coronary artery stent placement October 17, 2019 chronic Ischemic cardiomyopathy [facility] Work Phone: Evaluation note* Diagnosis Onset Date Resolution Status Bronchitis acute Cough acute Maxillary sinusitis, acute a cute Diabetes type 2, uncontrolled chronic GERD (gastroesophageal reflux disease) acute Diabetes type 2, uncontrolled chronic Essential (primary) hypertension chronic Hyperlipidemia [facility] Work Phone: Evaluation note* Diagnosis Onset Date Resolution Status GERD (gastroesophageal reflux disease) acute Neurofibroma of multiple sites acute Diabetes type 2, uncontrolled chronic Essential (primary) hypertension chronic Hyperlipidemia chronic Ischemic cardiomyopathy [employer] [facility] Work Phone: Evaluation note* Diagnosis Pharyngitis, unspecified etiology- Primary [facility] Diagnosis Onset Date Resolution Status Admit Date Chest pain acute January 28 8:19am Diabetes type 2, uncontrolled chroni c January 28, 2025 8:19am Essential (primary) hypertension chronic January 28, 2025 8:19am History of coronary artery stent placement October 17, 2019 chronic January 28, 2025 8:19am Hyperlipidemia chronic January 28, 2025 8:19am Ischemic cardiomyopathy chronic J 2024 8:19am [facility] Work Phone: Reason for referral (narrative)No reason for referral information availableSan [facility] Work Phone: Summary Purpose Family History No Family History Records Found Relationship Condition Age at Onset Recorded Date/T yon Not Specified Diabetes mellitus Unknown Coronary artery disease Unknown Cardiac disease Unknown Malignant neoplasm Unknown Advance Directives No Advanced Directives Records Found Advance Directive Response Recorded Date/ Time Advance Directives Yes April 7:01am Living Will Yes May 11, 2021 7:01am Power of Carroting Machine Offbearer Yes April 7:01am Advance Directive Response Recorded Date/ Time Advance Directives Yes November 22, 2 022 2:49pm Living Will Yes November 22, 2021 2:49pm Power of Carroting Machine Offbearer Yes November 22 2:49pm Advance Directive Response Recorded Date/ Time Advance Directives Yes July 3:30pm Living Will Yes August 07, 2 022 3:30pm Power of Carroting Machine Offbearer Yes August 07, 2022 3:30pm Advance Directive Response Recorded Date/ Time Advance Directives Yes August 23, 2023 2:33pm Living Will Yes August 23 2:33pm Power of Carroting Machine Offbearer Yes August 23, 2023 2:33pm Date Activated Date Inactivated Comments 10/17/2019 12:24 PM 10/19/2019 8:03 PM Question Answer Comments Full Code Order Discussed With: Patient Advance Directive Response Recorded Date/ Time Living Will Yes August 23 3:33pm Do you have a Healthcare Power of Carroting Machine Offbearer? Yes August 23, 2023 3:33pm Advance Directives Yes September 07, 2024 3:19pm Chief Complaint and Reason for Visit Chief Complaint Admit Date 1 Y FU January 28, 2025 8:19 am E ORDERS January 28, 2025 9:41 am Reason for Visit Admit Date Chest pain January 28, 2025 8:19 am Diabetes type 2, uncontrolled January 28, 2025 8:19am Essential (primary) hypertension January 282024 8:19am History of coronary artery stent placeme nt January 28, 2025 8:19am Hyperlipidemia January 28, 2025 8:19 am Ischemic cardiomyopathy January 28, 2025 8:19am Chief Complaint medication refills 3 M FU(MOVED FROM 2/3) EORDERS/NECK PAIN/ARM PAIN Reason for Visit Hyperlipidemia Diabetes type 2, uncontrolled Essential (primary) hypertension Essential (primary) hypertension History of coronary artery stent placement Ischemic cardiomyopathy Chief Complaint medication refills 3 M FU(MOVED FROM 2/3) EORDERS/NECK PAIN/ARM PAIN cervical Removal of skin tags I&D Other cervical disc displacement, unspecified cerv Reason for Visit Hyperlipidemia Diabetes type 2, uncontrolled Essential (primary) hypertension Essential (primary) hypertension History of coronary artery stent placement Ischemic cardiomyopathy Degenerative disc disease, cervical Acquired skin tag Chief Complaint Removal of skin tags I&D Other cervical disc displacement, unspecified cerv Cervical spine 9 M FU/MOVED FROM [facility] CARDIOMYOPATHY, CP, CAD *KARTIK* Reason for Visit Acquired skin tag Degenerative disc disease, cervical Chest pain Hyperlipidemia Essential (primary) hypertension History of coronary artery stent placement Ischemic cardiomyopathy Chief Complaint sinus cough medication refills Reason for Visit Bronchitis Cough Maxillary sinusitis, acute Diabetes type 2, uncontrolled GERD (gastroesophageal reflux disease) Diabetes type 2, uncontrolled Essential (primary) hypertension Hyperlipidemia Chief Complaint Diabetes Mellitus Ty pe 2 A1c/Medrefills Reason for Visit GERD (gastroesophage al reflux disease) Neurofibroma of multiple sites Diabetes type 2, uncontrolled Essential (primary) hypertension Hyperlipidemia Ischemic cardiomyopathy Chief Complaint Admit Date 1 Y FU January 28, 2025 8:19 am Additional Source Comments (unrecognized sect ion and content) No Status Records FoundNo Status Records FoundNo Status Records FoundNo Status Records FoundNo Status Records Found INFORMATION SOURCE (unrecogn ized section and content) DATE CREATED AUTHOR 07/28/2020 [facility] DATE CREATED AUTHOR AUTHOR'S ORGANIZ ATION 05/18/2021 [facility] DATE CREATED AUTHOR AUTHOR'S ORGANIZ ATION 09/27/2021 [facility] DATE CREATED AUTHOR AUTHOR'S ORGANIZ ATION 12/20/2021 [facility] dical Specialist DATE CREATED AUTHOR AUTHOR'S ORGANIZ ATION 02/05/2025 [facility] Goals (unrecognized section and content) Goals may be documented in a n alternate sectionGoals may be documented in an alternate sectionGoals may be documented in an alternate sectionGoals may be documented in an alternate sectionGoals may be documented in an alternate sectionGoals may be documented in an alternate sectionGoals may be documented in an alternate section Care Teams (unrecognized sec tion and content) Team Status: Active Member Role Status Dates Tamar Atwood TANK PROCESSOR, TANK PROCESSOR-C Primary Care Provider Active Team Status: Inactive Member Role Status Dates Tamar Atwood TANK PROCESSOR, TANK PROCESSOR-C Primary Care Pr ovider, Attending Provider, Referring Provider Active Team Status: Inactive Member Role Status Dates Tamar Atwood NP, TANK PROCESSOR-C Primary Care Provider, Attend ing Provider Active Public Health Registrar Relationship Specialty Start Date End Date Tamar Atwood APRN.TELEVISION TUBE INSPECTOR [address] [id number] PCP - General Family Medicine 10/17/19 Team Status: Inactive Member Role Status Dates Tamar Atwood TANK PROCESSOR, TANK PROCESSOR-C Primary Care Provider Active Start: January 28, 2025 End: January 28, 2025 Tamar Atwood NP, TANK PROCESSOR-C Referring Provider Active Start: January 28, 2025 End: January 28, 2025 Kip Faith TANK PROCESSOR, TANK PROCESSOR-C Attending Provider Active S tart: January 28, 2025 End: January 28, 2025 Team Status: Inactive Member Role Status Dates Tamar Atwood NP, TANK PROCESSOR-C Primary Care Provider Active Start: January 28, 2025 End: January 28, 2025 Kip Faith TANK PROCESSOR, TANK PROCESSOR-C Attending Provider Active S tart: January 28, 2025 End: January 28, 2025 Kip Faith NP, TANK PROCESSOR-C Referring Provider Active S tart: January 28, 2025 End: January 28, 2025 Source Comments (unrecognize d section and content) In the event this informatio n is protected by the Federal Confidentiality of Alcohol and Drug Abuse Patient Records regulations: The Federal rules restrict any use of the information to criminally investigate or prosecute any alcohol or drug abuse patient.[facility] Reason for Visit (unrecogniz ed section and content) Reason Comments Sore Throat Sore throat started today. FOR RECORDS PERTAINING TO PATIENTS WHO ARE [...] BE BASED ON THE PRIMARY CLINICAL RECORDS. [employer] provides no warranty or guarantee of the accuracy or completeness of information in this document.
== END | disposition home or self-care (01) ==
LOC: CT 06:06
PROVIDERS: PCP Nurse Practitioner; Referring Provider Nurse Practitioner Family; Visit Provider Nurse Practitioner Family
DX: R07.9 Chest pain, unspecified (principal); E11.65 Type 2 diabetes mellitus with hyperglycemia; Z95.5 Presence of coronary angioplasty implant and graft; I25.5 Ischemic cardiomyopathy; R06.09 Other forms of dyspnea
CPT/HCPCS: 71275

== ENCOUNTER → 2025-03-02 | Outpatient (CLI) | payer MEDICARE, SELFPAY ==
--- OUTSIDE RECORDS SUMMARY | 2025-03-02 06:33 | XMS RPT_ITS | CCD ---
Author Organization [facility] Care Team Providers Care Preschool Aide Name Role Phone Rai THRESHING DEPARTMENT SUPERVISOR, THRESHING DEPARTMENT SUPERVISOR-C Tamar Primary Care Provider Rai THRESHING DEPARTMENT SUPERVISOR, THRESHING DEPARTMENT SUPERVISOR-C Tamar Referring Provider Dr. Juventino Weber Attending Provider Dr. Omar Randall Attending Provider [phone] Rai THRESHING DEPARTMENT SUPERVISOR, THRESHING DEPARTMENT SUPERVISOR-C Tamar Primary Care Provider Rai THRESHING DEPARTMENT SUPERVISOR, THRESHING DEPARTMENT SUPERVISOR-C Tamar Referring Provider Dr. Omar Randall Attending Provider [phone] Jacob NAYLOR, THRESHING DEPARTMENT SUPERVISOR-C Amarilis Attending Provider Dr. Juventino Weber Attending Provider Rai WEB PRESS OPERATOR ASSISTANT.BINDERY WORKER, Tamar L Primary Care Provide r Rai THRESHING DEPARTMENT SUPERVISOR-C, Tamar Primary Care Provider Rai THRESHING DEPARTMENT SUPERVISOR-C, Tamar Referring Provider Roof THRESHING DEPARTMENT SUPERVISOR-C, Kip Richardson Attending Provider Roof THRESHING DEPARTMENT SUPERVISOR-C, Kip H Referring Provider Atwood THRESHING DEPARTMENT SUPERVISOR, Tamar Primary Care Unavailable Roof THRESHING DEPARTMENT SUPERVISOR, Kip Richardson Attending Unavailable Roof THRESHING DEPARTMENT SUPERVISOR, Kip H Referring Unavailable Atwood THRESHING DEPARTMENT SUPERVISOR, Tamar Primary Care Unavailable Atwood THRESHING DEPARTMENT SUPERVISOR, Tamar Attending Unavailable [place]wood THRESHING DEPARTMENT SUPERVISOR, Tamar Referring Unavailable [place]wood THRESHING DEPARTMENT SUPERVISOR, Tamar Primary Care Unavailable Roof THRESHING DEPARTMENT SUPERVISOR, Kip H Attending Unavailable Roof THRESHING DEPARTMENT SUPERVISOR, Kip H Referring Unavailable Atwood THRESHING DEPARTMENT SUPERVISOR, Taamr Primary Care Unavailable Atwood THRESHING DEPARTMENT SUPERVISOR, Tamar Referring Unavailable Roof THRESHING DEPARTMENT SUPERVISOR, Kip H Attending Unavailable [place]wood THRESHING DEPARTMENT SUPERVISOR, Tamar Primary Care Unavailable Roof THRESHING DEPARTMENT SUPERVISOR, Kip H Attending Unavailable Roof THRESHING DEPARTMENT SUPERVISOR, Kip H Referring Unavailable Medications Current Medications Medication Drug Class(es) Dates Sig (Normalized) Sig (Original) aspirin 81 mg delayed release oral tablet (9 sources) Platelet Aggregation Inhibitor, Nonsteroidal Anti-inflammatory Drug Start: 10-19-2019 take 1 tablet by mouth once daily Aspirin (Adult Aspirin Regimen) 81 mg tablet,delayed release (DR/EC) Active 81 mg PO DAILY October 22, 2019 12:00am Blood-Glucose Meter (Accu-Chek Guide Glucose Meter) misc (8 sources) Start: 10-22-2019 Blood-Glucose Meter (Accu-Chek Guide Glucose Meter) misc Active 0 .ROUTE .MEDSUPPLY 1 October 22, 2019 3:29pm As directed Start: 10-22-2019 Blood-Glucose Meter (Accu-Chek Guide Glucose Meter) misc Active 0 .ROUTE .MEDSUPPLY 1 October 22, 2019 12:00am As directed Start: 10-22-2019 Blood-Glucose Meter (Accu-Chek Guide Glucose Meter) misc Active 0 .ROUTE .MEDSUPPLY October 21, 2019 11:00pm As directed Start: 10-22-2019 Blood-Glucose Meter (Accu-Chek Guide Glucose Meter) misc Active 0 .ROUTE .MEDSUPPLY 1 October 22, 2019 12:00am As directed pregabalin 100 mg oral capsule (3 sources) Start: 01-28-2025 take 1 capsule by mouth once daily Pregabalin 100 mg capsule Active 100 mg PO daily January 28, 2025 12:00am Completed/Discontinued Medications Medication Drug Class(es) Dates Sig (Normalized) Sig (Original) amoxicillin 500 mg oral tablet (16 sources) Penicillin-class Antibacterial Start: 12-17-2019 End: 01-25-2020 take 2 tablets by mouth twice daily Amoxicillin 500 mg tablet Discontinued 1000 mg PO TWICE A DAY 4 1 December 17, 2019 12:00am January 25, 2020 [...] 875 mg PO TWICE A DAY 20 0 October 22, 2019 12:00am November 24, 2019 5:00pm amoxicillin 875 mg / clavulanate 125 mg oral tablet (8 sources) Penicillin-class Antibacterial Start: 05-14-2021 End: 05-17-2021 Amoxicillin-Pot Clavulanate (Augmentin) 875-125 mg tablet Discontinued 1 {tbl} PO TWICE A DAY 10 May 14, 2021 12:00am May 17, 2021 10:13am atorvastatin 80 mg oral tablet (20 sources) HMG-CoA Reductase Inhibitor Start: 02-15-2022 End: 09-07-2024 take 1 tablet by mouth at bedtime Atorvastatin 80 mg tablet Discontinued 80 mg PO AT BEDTIME 30 March 12, 2022 9:56am October 18, 2022 5:54pm Start: 10-19-2019 End: 02-15-2022 take 1 tablet by mouth at bedtime Atorvastatin 40 mg tablet Discontinued 40 mg PO AT BEDTIME October 06, 2021 7:48pm February 15, 2022 10:06am azithromycin 250 mg oral tablet (9 sources) Macrolide Antimicrobial Start: 12-21-2022 End: 12-26-2022 take 2 tablets by mouth once daily, then take 1 tablet by mouth once daily at mealtime Azithromycin 250 mg tablet Discontinued 250 mg PO daily 6 5 0 December 21, 2022 12:00am December 25, 2022 12:00am December 26, 2022 12:08am 2 po qd for 1 day then 1 po qd for 4 days with food or after eating Start: 08-07-2022 End: 08-12-2022 take 2 tablets by mouth once daily, then take 1 tablet by mouth once daily at mealtime Azithromycin 250 mg tablet Discontinued 250 mg PO daily 6 5 0 August 07, 2022 1:00am August 11, 2022 1:00am August 12, 2022 1:04am 2 po qd for 1 day then 1 po qd for 4 days with food or after eating baclofen 10 mg oral tablet (8 sources) gamma-Aminobutyric Acid-ergic Agonist Start: 10-12-2020 End: 10-06-2021 take 1 tablet by mouth at bedtime Baclofen 10 mg tablet Discontinued 10 mg PO AT BEDTIME 30 October 12, 2020 1:00am October 06, 2021 7:45pm carvedilol 3.125 mg oral tablet (20 sources) alpha-Adrenergic Rony, beta-Adrenergic Rony Start: 12-03-2022 End: 09-07-2024 take 1 tablet by mouth twice daily at mealtime Carvedilol 3.125 mg tablet Discontinued 3.125 mg PO TWICE A DAY 180 0 April 28, 2024 11:38am May 20, 2024 [...] mg tablet Discontinued 0 .ROUTE .COMPLEX 180 3 October 01, 2022 5:31pm October 18, 2022 5:51pm TAKE 1 TABLET BY MOUTH TWICE A DAY WITH MEAL/FOOD Start: 10-10-2021 End: 10-01-2022 take 1 tablet by mouth twice daily at mealtime Carvedilol (Coreg) 3.125 mg tablet Discontinued 3.125 mg PO TWICE A DAY 180 3 October 10, 2021 4:42pm October 01, 2022 5:31pm must administer with a meal/food Start: 10-03-2021 End: 10-10-2021 take 1 tablet by mouth twice daily at mealtime Carvedilol 6.25 mg tablet Discontinued 6.25 mg PO TWICE A DAY 180 3 October 03, 2021 1:00am October 10, 2021 4:42pm must administer with a meal/food Start: 06-09-2021 End: 10-03-2021 take 2 tablets by mouth twice daily Carvedilol 3.125 mg tablet Discontinued 6.25 mg PO TWICE A DAY 180 2 June 09, 2021 9:54am October 03, 2021 10:21am Start: 06-09-2021 End: 10-03-2021 take 6.25 mg by mouth twice daily Carvedilol Discontinued 6.25 MG PO TWICE A DAY 180 June 09, 2021 8:54am October 03, 2021 [...] mg tablet Discontinued 75 mg PO DAILY 90 August 23, 2023 4:51pm September 07, 2024 4:03pm dexamethasone 6 mg oral tablet (8 sources) Corticosteroid Start: 08-25-2021 End: 10-06-2021 take 1 tablet by mouth twice daily Dexamethasone (Decadron) 6 mg tablet Discontinued 6 mg PO TWICE A DAY 20 0 August 25, 2021 1:00am October 06, 2021 7:46pm empagliflozin 25 mg oral tablet (20 sources) Sodium-Glucose Cotransporter 2 Inhibitor Start: 10-22-2019 End: 09-07-2024 take 1 tablet by mouth once daily Empagliflozin (Jardiance) 25 mg tablet Discontinued 25 mg PO DAILY 90 August 23, 2023 4:51pm September 07, 2024 4:03pm esomeprazole 40 mg delayed release oral capsule (20 sources) Proton Pump Inhibitor Start: 12-22-2018 End: 09-07-2024 take 1 capsule by mouth once daily Esomeprazole Magnesium (Nexium) 40 mg capsule,delayed release(DR/EC) Discontinued 40 mg PO DAILY 14 0 January 21, 2020 7:42pm January 25, 2020 3:07pm esomeprazole mag nesium (NEXIUM ORAL) Take by mouth. Active 24 hr isosorbide mononitrate 30 mg extended release oral tablet (20 sources) Nitrate Vasodilator Start: 03-12-2022 End: 09-07-2024 take 1 tablet by mouth once daily Isosorbide Mononitrate 30 mg tablet extended release 24 hr Discontinued 0 .ROUTE .COMPLEX 90 3 December 17, 2022 9:40am August 23, 2023 4:52pm TAKE 1 TABLET BY MOUTH EVERY DAY levoFLOXacin 500 mg oral tablet (20 sources) Quinolone Antimicrobial Start: 12-27-2021 End: 04-12-2022 take 1 tablet by mouth once daily Levofloxacin 500 mg tablet Discontinued 500 mg PO DAILY 14 December 27, 2021 1:44pm April 12, 2022 8:30am Start: 08-25-2021 End: 10-06-2021 take 1 tablet by mouth once daily Levofloxacin 500 mg tablet Discontinued 500 mg PO DAILY 14 August 25, 2021 2:06pm October 06, 2021 7:46pm Start: 05-16-2021 End: 06-09-2021 take 1 tablet by mouth once daily Levofloxacin 500 mg tablet Discontinued 500 mg PO DAILY 14 May 16, 2021 12:00am June 09, 2021 9:26am lisinopril 2.5 mg oral tablet (20 sources) Angiotensin Converting Enzyme Inhibitor Start: 10-19-2019 End: 09-07-2024 take 1 tablet by mouth once daily Lisinopril 2.5 mg tablet Discontinued 2.5 mg PO DAILY 90 August 23, 2023 4:49pm September 07, 2024 4:03pm metFORMIN hydrochloride 500 mg oral tablet (20 sources) Biguanide Start: 10-19-2019 End: 09-07-2024 take 1 tablet by mouth twice daily Metformin 500 mg tablet Discontinued 500 mg PO TWICE A DAY 180 August 23, 2023 4:50pm September 07, 2024 [...] 10/19/2019 Active predniSONE 20 mg oral tablet (14 sources) Start: 12-27-2021 End: 04-12-2022 take 2 tablets by mouth once daily Prednisone 20 mg tablet Discontinued 40 mg PO DAILY 10 December 27, 2021 12:00am April 12, 2022 9:02am Start: 12-27-2021 End: 04-12-2022 take 40 mg by mouth once daily Prednisone Discontinued 40 MG PO DAILY December 26, 2021 11:00pm April 12, 2022 8:02am Start: 12-22-2018 End: 12-26-2018 Prednisone 10 mg tablet Disc ontinued 20 mg PO TWICE A DAY as needed for poison mansi 30 4 December 22, 2018 12:00am December 25, 2018 12:00am December 26, 2018 12:07am Allergic contact dermatitis due to plants, except food 2 po bid 4D,1 po bid for [...] 90 mg PO TWICE A DAY 180 3 October 12, 2020 8:00pm October 21, 2020 [...] Date Documented Date Episodic/Chronic Acute myocardial infarction (9 sources) Myocardial infarction; Translations: [Non-ST elevation (NSTEMI) myocardial infarction] Onset: 0 05-14-2021 Chronic Allergic reactions (8 sources) Contact dermatitis due to poison mansi; Translations: [Allergic contact dermatitis due to plants, except food] 10-20-2020 Episodic Cardiac arrest and ventricular fibrillation (16 sources) Cardiac arrest; Translations: [Cardiac arrest, cause unspecified] Onset: 1 09-26-2021 Chronic Chronic obstructive pulmonary disease and bronchiectasis (5 sources) Bronchitis; Translations: [Bronchitis, not specified as acute or chronic] 08-08-2022 Episodic Conditions associated with dizziness or vertigo (5 sources) Dizziness; Translations: [Dizziness and giddiness] 04-12-2022 Episodic Coronary atherosclerosis and other heart disease (20 sources) History of acute ST segment elevation myocardial infarction; Translations: [Old myocardial infarction] Onset: 0 Chronic Coronary atherosclerosis and other heart disease (5 sources) Presence of coronary angioplasty implant and graft; Translations: [Percutaneous transluminal coronary angioplasty status] Onset: 0 Episodic Diabetes mellitus with complications (12 sources) Type II diabetes mellitus uncontrolled; Translations: [Type 2 diabetes mellitus with hyperglycemia] Onset: 5 06-08-2021 Chronic Diseases of mouth; excluding dental (8 sources) Abscess of oral tissue; Translations: [Cellulitis and abscess of mouth] 10-20-2020 Episodic Disorders of lipid metabolism (12 sources) Hyperlipidemia; Translations: [Hyperlipidemia, unspecified] Chronic Esophageal disorders (13 sources) Gastroesophageal reflux disease; Translations: [Gastro-esophageal reflux disease without esophagitis] 10-18-2022 Chronic Essential hypertension (15 sources) Essential hypertension; Translations: [Essential (primary) hypertension] Onset: Chronic Genitourinary symptoms and ill-defined conditions (4 sources) Increased frequency of urination; Translations: [Frequency of micturition] 08-23-2023 Episodic Hyperplasia of prostate (3 sources) Benign prostatic hyperplasia; Translations: [Benign prostatic hyperplasia without lower urinary tract symptoms] 09-07-2024 Chronic Nervous system congenital anomalies (7 sources) Neurofibromatosis syndrome; 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, unspecified] 11-22-2021 Chronic Nonspecific chest pain (12 sources) Chest pain; Translations: [Chest pain, unspecified] Onset: Episodic Other connective tissue disease (8 sources) Pain in upper limb; Translations: [Pain in arm, unspecified] 09-26-2021 Episodic Other connective tissue disease (8 sources) Musculoskeletal pain; Translations: [Myalgia, other site] 10-10-2021 Episodic Other connective tissue disease (3 sources) Pain in bilateral lower legs; Translations: [Pain in right lower leg] 09-07-2024 Episodic Other lower respiratory disease (8 sources) Hemoptysis; Translations: [Hemoptysis] 06-08-2021 Episodic Other lower respiratory disease (5 sources) Cough; Translations: [Cough] 08-08-2022 Episodic Other lower respiratory disease (3 sources) Dyspnea on exertion; Translations: [Other forms of dyspnea] 01-28-2025 Episodic Other lower respiratory disease (2 sources) Other forms of dyspnea; Translations: [Other forms of dyspnea] Onset: Episodic Other nervous system disorders (4 sources) Tremor; Translations: [Tremor, unspecified] 12-03-2022 Episodic Other skin disorders (7 sources) Skin tag; Translations: [Other hypertrophic disorders of the skin] 11-22-2021 Episodic Other upper respiratory disease (4 sources) Seasonal allergy; Translations: [Other seasonal allergic rhinitis] 12-21-2022 Chronic Other upper respiratory infections (6 sources) Acute maxillary sinusitis; Translations: [Acute maxillary sinusitis, unspecified] 08-08-2022 Episodic Otitis media and related conditions (4 sources) Otitis media of left ear; Translations: [Otitis media, unspecified, left ear] 12-21-2022 Episodic Residual codes; unclassified (3 sources) Edema of lower extremity; Translations: [Localized edema] 09-07-2024 Episodic Respiratory failure; insufficiency; arrest (adult) (8 sources) Acute respiratory failure; Translations: [Acute respiratory failure with hypoxia] 05-14-2021 Episodic Spondylosis; intervertebral disc disorders; other back problems (9 sources) Degeneration of cervical intervertebral disc; Translations: [Other cervical disc degeneration, unspecified cervical region] Chronic Spondylosis; intervertebral disc disorders; other back problems (8 sources) Radicular pain; Translations: [Radiculopathy, site unspecified] 11-02-2021 Episodic Past or Other Problems Problem Classification Problem Date Documented Da te Episodic/Chronic Shock (8 sources) Cardiogenic shock; Translations: [Cardiogenic shock] Onset: 05-11-2021 09-26-2021 Episodic Results Test Name Value Interpretation Reference Range Facility CTA Chest W/WO Contraston CTA Chest W/WO Contrast [facility] [address] [place] [id number] CTA Chest W/WO Contrast MR#: [id number] Acct: [id number] Name: SHARIF CADE Rep #: [id number] : 1955 M 69 From: Veto porras MD PCP: Tamar Atwood THRESHING DEPARTMENT SUPERVISOR-C Status: [facility] Study: CTA Chest W/WO Contrast Date of Exam: 02/18/25 Exam# [id number] Ordering Dr: Kip Faith NP THRESHING DEPARTMENT SUPERVISOR-C PROCEDURE: CTA CHEST W/WO CONTRAST 02/18/2025 REASON FOR EXAM: EVALUATE ABNORMAL CT FROM 2016 AT [facility] TECHNIQUE: One or more dose reduction techniques were used (e.g., Automated exposure control, adjustment of the mA and/or kV according to patient size, use of iterative reconstruction technique). CTA CHEST W/WO CONTRAST Multiplanar Sagittal and Coronal images were obtained. 3D post processing was performed CONTRAST: Isovue 370 VOLUME: 100 mL RADIATION DOSE SUMMARY: CTDlvol: 14.1 mGy DLP: 591. 0 7 mGycm COMPARISON: No prior study available for comparison at this time. FINDINGS: Hardware: None Lymph nodes: Small benign-appearing bilateral axillary lymph nodes. Heart: Coronary artery calcifications are noted. Thoracic Aorta: Atherosclerotic plaque formation of the aortic arch. Pulmonary Vessels: No evidence of pulmonary embolism. Lungs and Airways: Calcified granuloma in the right lower lobe. Pleura: No pleural effusion. Upper Abdomen: Linear calcification of the left adrenal gland. Bones: Degenerative changes of the thoracic spine. CT/CTA Chest W/WO Contrast IMPRESSION: Coronary artery calcification. Calcified granuloma in the right lower lobe. Reading Location: [place] [address] CC: DIANA Atwood; DIANA Faith Sampling Expert: Signed Normal [facility] Absolute lymphocyte countOrd ered By: Kip Faith on 01-28-2025 Lymphocytes Auto (Unsp spec) [#/Vol] 1.77 10*3/uL 0.83-4.51 [facility] Absolute neutrophil countOrd ered By: Kip Faith on 01-28-2025 Neutrophils (Bld) [#/Vol] 3.8 10*3/uL 2.0-7.7 [facility] Anion gap in Serum or Plasma Ordered By: Kip Faith on 01-28-2025 Anion gap [Moles/Vol] 11 mmol/L - [facility] Automated lymphocyte count a s percentage of total leukocytesOrdered By: Kip Faith on 01-28-2025 Lymphocytes/100 WBC Auto (Unsp spec) 27.8 % - [facility] BUN/creatinine ratioOrdered By: Kip Faith on 01-28-2025 Urea nitrogen/Creatinine [Mass ratio] 18.1 mg/mg - [facility] Basic Metabolic Profile (BMP )on 01-28-2025 BUN/CRE 18.1 RATIO Normal 05-31 [facility] Comment on above: Performed By: #### L 503.5955, L501.5200, L100.0100, L500.2500 #### [facility] [address] [place], [address] Calcium [Mass/Vol] 9.6 mg/dL Normal 7.6-11.0 [facility] Comment on above: Performed By: #### L 503.7505, L501.5200, L100.0100, L500.2500 #### [facility] [address] [place], [address] Chloride [Moles/Vol] 103 mmol/L Normal 98-108 [facility] Comment on above: Performed By: #### L 503.7505, L501.5200, L100.0100, L500.2500 #### [facility] [address] [place], [address] CO2 [Moles/Vol] 22.9 mmol/L Normal 21.0-32.0 [facility] Comment on above: Performed By: #### L 503.7505, L501.5200, L100.0100, L500.2500 #### [facility] [address] [place], [address] Creatinine [Mass/Vol] 0.86 mg/dL Normal 0.70-1.20 [facility] Comment on above: Performed By: #### L 503.7505, [id number], L100.0100, L500.2500 #### [facility] [address] [place], [address] GAP 11 Normal 5-15 [facility] Comment on above: Performed By: #### L 503.7505, L501.5200, L100.0100, L500.2500 #### [facility] [address] [place], [address] GFR/1.73 sq M.predicted among non-blacks MDRD (S/P/Bld) [Vol rate/Area] 94 mL/min/{1.73_m2} Normal >60 [facility] Comment on above: Result Comment: mL/m in/1.73m2 CKD-EPI Creatinine Equation (2020) Performed By: #### L 503.7505, L501.5200, L100.0100, L500.2500 #### [facility] [address] [place], [address] Glucose [Mass/Vol] 118 mg/dL High 70-99 [facility] Comment on above: Performed By: #### L 503.7505, L501.5200, L100.0100, L500.2500 #### [facility] [address] [place], [address] Potassium [Moles/Vol] 4.7 mmol/L Normal 3.3-5.1 [facility] Comment on above: Performed By: #### L 503.7505, L501.5200, L100.0100, L500.2500 #### [facility] [address] [place], [address] Sodium [Moles/Vol] 137 mmol/L Normal 133-145 [facility] Comment on above: Performed By: #### L 503.7505, L501.5200, L100.0100, L500.2500 #### [facility] [address] [place], [address] Urea nitrogen [Mass/Vol] 16 mg/dL Normal -19 [facility] Comment on above: Performed By: #### L 503.7505, L501.5200, L100.0100, L500.2500 #### [facility] [address] [place], [address] Basophil percentageOrdered B y: Kip Marcell on 01-28-2025 Basophils/100 WBC (Bld) 0.8 % 0-1 [facility] CBC W/Diff, Automatedon 01-10 Absolute Lymph 1.77 X10 3/uL Normal 0.83-4.51 [facility] Comment on above: Performed By: #### L 503.7505, L501.5200, L100.0100, L500.2500 #### [facility] [address] [place], [address] Absolute Neut 3.8 X10 3/uL Normal 2.0-7.7 [facility] Comment on above: Performed By: #### L 503.7505, L501.5200, L100.0100, L500.2500 #### [facility] [address] [place], [address] Basophils/100 WBC (Bld) 0.8 % Normal 0-1 [facility] Comment on above: Performed By: #### L 503.7505, L501.5200, L100.0100, L500.2500 #### [facility] [address] [place], [address] Eosinophils/100 WBC (Bld) 1.3 % Normal 0-5 [facility] Comment on above: Performed By: #### L 503.7505, L501.5200, L100.0100, L500.2500 #### [facility] [address] [place], [address] Erythrocyte distribution width (RBC) [Ratio] 12.1 % Normal 11.6-14.6 [facility] Comment on above: Performed By: #### L 503.7505, L501.5200, L100.0100, L500.2500 #### [facility] [address] [place], [address] Hematocrit (Bld) [Volume fraction] 45.2 % Normal 40-54 [facility] Comment on above: Performed By: #### L 503.7505, L501.5200, L100.0100, L500.2500 #### [facility] [address] [place], [address] Hemoglobin (Bld) [Mass/Vol] 15.4 g/dL Normal 13.0-16.5 [facility] Comment on above: Performed By: #### L 503.7505, L501.5200, L100.0100, L500.2500 #### [facility] [address] [place], [address] IG% 0.200 Normal 0.0-0.9 [facility] Comment on above: Result Comment: IG% - Immature Granulocytes (promyelocytes, myelocytes and metamyelocytes) > 1% indicates that a LEFT SHIFT is Present. Performed By: #### L 503.7505, L501.5200, L100.0100, L500.2500 #### [facility] [address] [place], [address] Lymphocytes/100 WBC (Bld) 27.8 % Normal 19-41 [facility] Comment on above: Performed By: #### L 503.7505, L501.5200, L100.0100, L500.2500 #### [facility] [address] [place], [address] MCH (RBC) [Entitic mass] 31.0 pg Normal 27.0-32.0 [facility] Comment on above: Performed By: #### L 503.7505, L501.5200, L100.0100, L500.2500 #### [facility] [address] [place], [address] MCHC (RBC) [Mass/Vol] 34.1 g/dL Normal 32-36 [facility] Comment on above: Performed By: #### L 503.7505, L501.5200, L100.0100, L500.2500 #### [facility] [address] [place], [address] MCV (RBC) [Entitic vol] 90.9 fL Normal 80-94 [facility] Comment on above: Performed By: #### L 503.7505, L501.5200, L100.0100, L500.2500 #### [facility] [address] [place], [address] Monocytes/100 WBC (Bld) 11.1 % High 0-10 [facility] Comment on above: Performed By: #### L 503.7505, L501.5200, L100.0100, L500.2500 #### [facility] [address] [place], [address] Neutrophils/100 WBC (Bld) 58.8 % Normal 47-70 [facility] Comment on above: Performed By: #### L 503.7505, L501.5200, L100.0100, L500.2500 #### [facility] [address] [place], [address] Nucleated RBC (Bld) [#/Vol] 0 10*3/uL Normal 0-5 [facility] Comment on above: Performed By: #### L 503.7505, L501.5200, L100.0100, L500.2500 #### [facility] [address] [place], [address] Platelet mean volume (Bld) [Entitic vol] 9.7 fL Normal 6.2-12.0 [facility] Comment on above: Performed By: #### L 503.7505, L501.5200, L100.0100, L500.2500 #### [facility] [address] [place], [address] Platelets (Bld) [#/Vol] 209 10*3/uL Normal 150-450 [facility] Comment on above: Performed By: #### L 503.7505, L501.5200, L100.0100, L500.2500 #### [facility] [address] [place], [address] RBC (Bld) [#/Vol] 4.97 10*6/uL Normal 4.6-6.2 [facility] Comment on above: Performed By: #### L 503.7505, L501.5200, L100.0100, L500.2500 #### [facility] [address] [place], [address] RDW SD 40.4 fl Normal 35.1-43.9 [facility] Comment on above: Performed By: #### L 503.7505, L501.5200, L100.0100, L500.2500 #### [facility] [address] [place], [address] WBC (Bld) [#/Vol] 6.4 10*3/uL Normal 4.4-11.0 [facility] Comment on above: Performed By: #### L 503.7505, L501.5200, L100.0100, L500.2500 #### [facility] [address] [place], [address] Carbon dioxide, total [Moles /volume] in Central venous bloodOrdered By: Kip Faith on 01-28-2025 CO2 [Moles/Vol] 22.9 mmol/L 21.0-32.0 [facility] Cardiology Visit Reporton Cardiology Visit Report [facility] [address] [place] [address] OFFICE VISIT Date of Service: 01/28/25 MR#: [id number] Acct: [id number] Name: SHARIF CADE Rep #: [id number] : 1955 Provider: DIANA marion Age/Sex: 69/M Location: [facility] Status: Signed HPI HPI History of [...] lesion in the right upper lobe in 2016. He apparently did well for a while [...] NIBP Intake Visit Reasons: 1 Y [facility] Safety Coordinator Required: No Accompanied by: Is patient in [...] you fallen in the past year?: No [facility] Medical History Neurofibroma of multiple sites Lung nodule Cardiac arrest (05/11/21) Hemoptysis C (more content not included)... Normal [facility] Chloride assayOrdered By: Stephani Faith on 01-28-2025 Chloride [Moles/Vol] 103 mmol/L 98-108 [facility] Eosinophil percentageOrdered By: Kip Faith on 01-28-2025 Eosinophils/100 WBC (Bld) 1.3 % 0-5 [facility] Erythrocyte distribution wid th ratioOrdered By: Kip Faith on 01-28-2025 Erythrocyte distribution width (RBC) [Ratio] 12.1 % 11.6-14.6 [facility] Erythrocyte distribution wid th standard deviationOrdered By: Kip Faith on 01-28-2025 Erythrocyte distribution width (RBC) [Ratio] 40.4 fl 35.1-43.9 [facility] Glomerular filtration rate ( GFR) estimation/1.73 sq m using serum, plasma, or whole bOrdered By: Kip Faith on 01-28-2025 GFR/1.73 sq M.predicted among non-blacks MDRD (S/P/Bld) [Vol rate/Area] 94 mL/min/{1.73_m2} >60 [facility] Comment on above: mL/min/1.73m2 CKD-EP I Creatinine Equation (2020) Hematocrit Auto (Bld) [Volum e fraction]Ordered By: Kip Faith on 01-28-2025 Hematocrit (Bld) [Volume fraction] 45.2 % 40-54 [facility] Hemoglobin measurementOrdere d By: Kip Faith on 01-28-2025 Hemoglobin (Bld) [Mass/Vol] 15.4 g/dL 13.0-16.5 [facility] Immature granulocytes/100 WB C Auto (Bld)Ordered By: Kip Faith on 01-28-2025 Immature granulocytes/100 WBC (Bld) 0.200 % 0.0-0.9 [facility] Comment on above: IG% - Immature Granu locytes (promyelocytes, myelocytes and metamyelocytes) > 1% indicates that a LEFT SHIFT is Present. L503.7505on 01-28-2025 Natriuretic peptide B (Bld) [Mass/Vol] 153 pg/mL Normal <=900 [facility] Comment on above: Result Comment: Hear t Failure Unlikely: < 300 pg/mL Heart Failure Likely < 50 Years: > 450 pg/mL 50-75 Years: > 900 pg/mL >75 Years: > 1800 pg/mL Performed By: #### L 503.7505, L501.5200, L100.0100, L500.2500 #### [facility] [address] [place], [address] MCV (mean corpuscular volume ) determinationOrdered By: Kip Faith on 01-28-2025 MCV (RBC) [Entitic vol] 90.9 fL 80-94 [facility] Magnesiumon 01-28-2025 Magnesium [Mass/Vol] 2.0 mg/dL Normal 1.5-2.2 [facility] Comment on above: Performed By: #### L 503.7505, L501.5200, L100.0100, L500.2500 #### [facility] [address], [place], [address] Magnesium measurement (mass/ volume)Ordered By: Kip Faith on 01-28-2025 Magnesium (Unsp spec) [Mass/Vol] 2.0 mg/dL 1.5-2.2 [facility] Mean corpuscular hemoglobin (MCH) determinationOrdered By: Kip Faith on 01-28-2025 MCH (RBC) [Entitic mass] 31.0 pg 27.0-32.0 [facility] Mean corpuscular hemoglobin concentration (MCHC) determinationOrdered By: Kip Faith on 01-28-2025 MCHC (RBC) [Mass/Vol] 34.1 g/dL 32-36 [facility] Mean platelet volume determi nationOrdered By: Kip Faith on 01-28-2025 Platelet mean volume (Bld) [Entitic vol] 9.7 fL 6.2-12.0 [facility] Monocyte percentageOrdered B y: Kip Faith on 01-28-2025 Monocytes/100 WBC (Bld) 11.1 % High 0-10 [facility] Natriuretic peptide.B prohor luis N-Terminal [Mass/volume] in Serum or PlasmaOrdered By: Kip Faith on 01-28-2025 Natriuretic peptide.B prohormone N-Terminal [Mass/Vol] 153 pg/mL <900 [facility] Comment on above: Heart Failure Unlike ly: < 300 pg/mLHeart Failure Likely< 50 Years: > 450 pg/mL50-75 Years: > 900 pg/mL>75 Years: > 1800 pg/mL Neutrophil percentageOrdered By: Kip Faith on 01-28-2025 Neutrophils/100 WBC (Bld) 58.8 % 47-70 [facility] Nucleated red blood cell per centageOrdered By: Kip Faith on 01-28-2025 Nucleated RBC/100 WBC (Bld) [Ratio] 0 % 0-5 [facility] Platelet countOrdered By: Stephani Faith on 01-28-2025 Platelets (Bld) [#/Vol] 209 10*3/uL 150-450 [facility] Potassium measurement (mass/ volume)Ordered By: Kip Faith on 01-28-2025 Potassium (Unsp spec) [Mass/Vol] 4.7 mmol/L 3.3-5.1 [facility] RBC Auto (Bld) [#/Vol]Ordere d By: Kip Faith on 01-28-2025 RBC (Bld) [#/Vol] 4.97 10*6/uL 4.6-6.2 [facility] Serum creatinine measurement (mass/volume)Ordered By: Kip Faith on 01-28-2025 Creatinine [Mass/Vol] 0.86 mg/dL 0.70-1.20 [facility] Serum glucose measurement (m ass/volume)Ordered By: Kip Faith on 01-28-2025 Glucose [Mass/Vol] 118 mg/dL High 70-99 [facility] Serum or plasma calcium kimberley urement (mass/volume)Ordered By: Kip Faith on 01-28-2025 Calcium [Mass/Vol] 9.6 mg/dL 7.6-11.0 [facility] Serum or plasma urea nitroge n measurement (mass/volume)Ordered By: Kip Faith on 01-28-2025 Urea nitrogen [Mass/Vol] 16 mg/dL 4-19 [facility] Sodium levelOrdered By: Kip Faith on 01-28-2025 Sodium [Moles/Vol] 137 mmol/L 133-145 [facility] White blood cell (WBC) count Ordered By: Kip Faith on 01-28-2025 WBC (Bld) [#/Vol] 6.4 10*3/uL 4.4-11.0 [facility] CBC W/Diff, Automatedon 01-2 Absolute Lymph 0.58 X10 3/uL Low 0.83-4.51 [facility] Comment on above: Performed By: #### L 501.9985, L500.4100, L100.0100, L500.4050, L501.9910 #### [facility] [address] [place], [address] Absolute Neut 6.3 X10 3/uL Normal 2.0-7.7 [facility] Comment on above: Performed By: #### L 501.9985, L500.4100, L100.0100, L500.4050, L501.9910 #### [facility] [address] [place], [address] Basophils/100 WBC (Bld) 0.3 % Normal 0-1 [facility] Comment on above: Performed By: #### L 501.9985, L500.4100, L100.0100, L500.4050, L501.9910 #### [facility] [address] [place], [address] Eosinophils/100 WBC (Bld) 0.1 % Normal 0-5 [facility] Comment on above: Performed By: #### L 501.9985, L500.4100, L100.0100, L500.4050, L501.9910 #### [facility] [address] [place], [address] Erythrocyte distribution width (RBC) [Ratio] 12.2 % Normal 11.6-14.6 [facility] Comment on above: Performed By: #### L 501.9985, L500.4100, L100.0100, L500.4050, L501.9910 #### [facility] [address] [place], [address] Hematocrit (Bld) [Volume fraction] 46.1 % Normal 40-54 [facility] Comment on above: Performed By: #### L 501.9985, L500.4100, L100.0100, L500.4050, L501.9910 #### [facility] [address] [place], [address] Hemoglobin (Bld) [Mass/Vol] 15.6 g/dL Normal 13.0-16.5 [facility] Comment on above: Performed By: #### L 501.9985, L500.4100, L100.0100, L500.4050, L501.9910 #### [facility] [address] [place], [address] IG% 0.300 Normal 0.0-0.9 [facility] Comment on above: Result Comment: IG% - Immature Granulocytes (promyelocytes, myelocytes and metamyelocytes) > 1% indicates that a LEFT SHIFT is Present. Performed By: #### L 501.9985, L500.4100, L100.0100, L500.4050, L501.9910 #### [facility] [address] [place], [address] Lymphocytes/100 WBC (Bld) 8.3 % Low 19-41 [facility] Comment on above: Performed By: #### L 501.9985, L500.4100, L100.0100, L500.4050, L501.9910 #### [facility] [address] [place], [address] MCH (RBC) [Entitic mass] 31.1 pg Normal 27.0-32.0 [facility] Comment on above: Performed By: #### L 501.9985, L500.4100, L100.0100, L500.4050, L501.9910 #### [facility] [address] [place], [address] MCHC (RBC) [Mass/Vol] 33.8 g/dL Normal 32-36 [facility] Comment on above: Performed By: #### L 501.9985, L500.4100, L100.0100, L500.4050, L501.9910 #### [facility] [address] [place], [address] MCV (RBC) [Entitic vol] 91.8 fL Normal 80-94 [facility] Comment on above: Performed By: #### L 501.9985, L500.4100, L100.0100, L500.4050, L501.9910 #### [facility] [address] [place], [address] Monocytes/100 WBC (Bld) 0.9 % Normal 0-10 [facility] Comment on above: Performed By: #### L 501.9985, L500.4100, L100.0100, L500.4050, L501.9910 #### [facility] [address] [place], [address] Neutrophils/100 WBC (Bld) 90.1 % High 47-70 [facility] Comment on above: Performed By: #### L 501.9985, L500.4100, L100.0100, L500.4050, L501.9910 #### [facility] [address] [place], [address] Nucleated RBC (Bld) [#/Vol] 0 10*3/uL Normal 0-5 [facility] Comment on above: Performed By: #### L 501.9985, L500.4100, L100.0100, L500.4050, L501.9910 #### [facility] [address] [place], [address] Platelet mean volume (Bld) [Entitic vol] 10.0 fL Normal 6.2-12.0 [facility] Comment on above: Performed By: #### L 501.9985, L500.4100, L100.0100, L500.4050, L501.9910 #### [facility] [address] [place], [address] Platelets (Bld) [#/Vol] 226 10*3/uL Normal 150-450 [facility] Comment on above: Performed By: #### L 501.9985, L500.4100, L100.0100, L500.4050, L501.9910 #### [facility] [address] [place], [address] RBC (Bld) [#/Vol] 5.02 10*6/uL Normal 4.6-6.2 [facility] Comment on above: Performed By: #### L 501.9985, L500.4100, L100.0100, L500.4050, L501.9910 #### [facility] [address] [place], [address] RDW SD 41.1 fl Normal 35.1-43.9 [facility] Comment on above: Performed By: #### L 501.9985, L500.4100, L100.0100, L500.4050, L501.9910 #### [facility] [address] [place], [address] WBC (Bld) [#/Vol] 7.0 10*3/uL Normal 4.4-11.0 [facility] Comment on above: Performed By: #### L 501.9985, L500.4100, L100.0100, L500.4050, L501.9910 #### [facility] [address] [place], [address] Comprehensive Metabolic Prof [facility] 09-07-2024 Albumin [Mass/Vol] 3.9 g/dL Normal 3.2-5.0 [facility] Comment on above: Performed By: #### L 501.9985, L500.4100, L100.0100, L500.4050, L501.9910 #### [facility] [address] [place], [address] Albumin/Globulin [Mass ratio] 1.2 {ratio} Normal 0.9-2.4 [facility] Comment on above: Performed By: #### L 501.9985, L500.4100, L100.0100, L500.4050, L501.9910 #### [facility] [address] [place], [address] ALK P 83 U/L Normal 45-117 [facility] Comment on above: Performed By: #### L 501.9985, L500.4100, L100.0100, L500.4050, L501.9910 #### [facility] [address] [place], [address] ALT [Catalytic activity/Vol] 30 U/L Normal 16-61 [facility] Comment on above: Performed By: #### L 501.9985, L500.4100, L100.0100, L500.4050, L501.9910 #### [facility] [address] [place], [address] AST [Catalytic activity/Vol] 16 U/L Normal 15-37 [facility] Comment on above: Performed By: #### L 501.9985, L500.4100, L100.0100, L500.4050, L501.9910 #### [facility] [address] [place], [address] Bilirubin [Mass/Vol] 0.60 mg/dL Normal 0.20-1.00 [facility] Comment on above: Result Comment: For patients on eltrombopag therapy, use of Dimension Bradley TBIL is not recommended. Performed By: #### L 501.9985, L500.4100, L100.0100, L500.4050, L501.9910 #### [facility] [address] [place], [address] BUN/CRE 15.8 RATIO Normal 10-20 [facility] Comment on above: Performed By: #### L 501.9985, L500.4100, L100.0100, L500.4050, L501.9910 #### [facility] [address] [place], [address] CA,Total 9.3 mg/dL Normal 8.5-10.1 [facility] Comment on above: Performed By: #### L 501.9985, L500.4100, L100.0100, L500.4050, L501.9910 #### [facility] [address] [place], [address] Chloride [Moles/Vol] 106 mmol/L Normal 98-107 [facility] Comment on above: Performed By: #### L 501.9985, L500.4100, L100.0100, L500.4050, L501.9910 #### [facility] [address] [place], [address] CO2 [Moles/Vol] 25.0 mmol/L Normal 21.0-32.0 [facility] Comment on above: Performed By: #### L 501.9985, L500.4100, L100.0100, L500.4050, L501.9910 #### [facility] [address] [place], [address] Creatinine [Mass/Vol] 1.01 mg/dL Normal 0.70-1.30 [facility] Comment on above: Result Comment: The validity of the calculated GFR GFRAA in patients over 70 years has not been determined. Clinical correlation is essential. Performed By: #### L 501.9985, L500.4100, L100.0100, L500.4050, L501.9910 #### [facility] [address] [place], [address] EST GFR - AA 94 mL/min Normal >60 [facility] Comment on above: Result Comment: Afri can Romanian GFR Calc Performed By: #### L 501.9985, L500.4100, L100.0100, L500.4050, L501.9910 #### [facility] [address] [place], [address] GAP 7 Normal 5-15 [facility] Comment on above: Performed By: #### L 501.9985, L500.4100, L100.0100, L500.4050, L501.9910 #### [facility] [address] [place], [address] GFR/1.73 sq M.predicted among non-blacks MDRD (S/P/Bld) [Vol rate/Area] 78 mL/min/{1.73_m2} Normal >60 [facility] Comment on above: Result Comment: Non- GFR Calc Performed By: #### L 501.9985, L500.4100, L100.0100, L500.4050, L501.9910 #### [facility] [address] [place], [address] Globulin (S) [Mass/Vol] 3.3 g/dL Normal 2.2-4.2 [facility] Comment on above: Performed By: #### L 501.9985, L500.4100, L100.0100, L500.4050, L501.9910 #### [facility] [address] [place], [address] Glucose [Mass/Vol] 280 mg/dL High 74-106 [facility] Comment on above: Result Comment: Gluc ose result greater than or equal to 200 mg/dL suggests DIABETES MELLITUS per A.D.A. criteria. Performed By: #### L 501.9985, L500.4100, L100.0100, L500.4050, L501.9910 #### [facility] [address] [place], [address] Potassium [Moles/Vol] 4.6 mmol/L Normal 3.5-5.1 [facility] Comment on above: Performed By: #### L 501.9985, L500.4100, L100.0100, L500.4050, L501.9910 #### [facility] [address] [place], [address] Sodium [Moles/Vol] 138 mmol/L Normal 136-145 [facility] Comment on above: Performed By: #### L 501.9985, L500.4100, L100.0100, L500.4050, L501.9910 #### [facility] [address] [place], [address] T PROT 7.2 g/dL Normal 6.4-8.2 [facility] Comment on above: Performed By: #### L 501.9985, L500.4100, L100.0100, L500.4050, L501.9910 #### [facility] [address] [place], [address] Urea nitrogen [Mass/Vol] 16 mg/dL Normal 7-18 [facility] Comment on above: Performed By: #### L 501.9985, L500.4100, L100.0100, L500.4050, L501.9910 #### [facility] [address] [place], [address] Hemoglobin A1con 09-07-2024 HbA1c (Bld) [Mass fraction] 6.0 % High 3.8-5.6 [facility] Comment on above: Result Comment: Norm al < 5.7 % Prediabetic 5.7 - 6.4 % Diabetic >or= 6.5 % Please note range changes. Performed By: #### L 501.9985, L500.4100, L100.0100, L500.4050, L501.9910 #### [facility] [address] [place], [address] Lipid Profileon 09-07-2024 Cholesterol [Mass/Vol] 162 mg/dL Normal 200 [facility] Comment on above: Result Comment: <200 mg/dL Desirable 200-240 mg/dL Borderline >240 mg/dL High Risk Performed By: #### L 501.9985, L500.4100, L100.0100, L500.4050, L501.9910 #### [facility] [address] [place], [address] Cholesterol in HDL [Mass/Vol] 42 mg/dL Normal [facility] Comment on above: Result Comment: The drugs N-Acetylcysteine and Metamizole may falsely depress this assay. Reference Range HDL <40 mg/dL Low HDL Cholesterol HDL >or= 60 mg/dL High HDL Cholesterol Performed By: #### L 501.9985, L500.4100, L100.0100, L500.4050, L501.9910 #### [facility] [address] [place], [address] Cholesterol in LDL [Mass/Vol] 69 mg/dL Normal 0-130 [facility] Comment on above: Performed By: #### L 501.9985, L500.4100, L100.0100, L500.4050, L501.9910 #### [facility] [address] [place], [address] Cholesterol in VLDL [Mass/Vol] 51 mg/dL High 5-40 [facility] Comment on above: Performed By: #### L 501.9985, L500.4100, L100.0100, L500.4050, L501.9910 #### [facility] [address] [place], [address] Triglyceride [Mass/Vol] 254 mg/dL High [facility] Comment on above: Result Comment: The drugs N-Acetylcysteine and Metamizole may falsely depress this assay. Serum Triglycerides Reference Interval Normal <150 mg/dL Borderline high 150 - 199 mg/dL High 200 - 499 mg/dL Very High > or = 500 mg/dL Performed By: #### L 501.9985, L500.4100, L100.0100, L500.4050, L501.9910 #### [facility] [address] [place], [place], [id number] PSA,Total - Annual Screenon 09-07-2024 PSA,TOT SCREEN 0.87 ng/mL Normal 0.00-4.00 [facility] Comment on above: Result Comment: This test was performed using the TPSA assay method for the [employer] chemistry system. Values obtained with different assay methods cannot be used interchangably. When changing PSA assays in the course of monitoring a patient, additional sequential testing should be carried out to confirm baseline values. Performed By: #### L 501.9985, L500.4100, L100.0100, L500.4050, L501.9910 #### [facility] [address] [place], [place], [id number] STREP A MOLECULAR (POC)on Procedural Control Valid [facility] Strep A (POCT) Negative Negative [facility] Absolute lymphocyte countOrd ered By: Tamar Atwood on 08-23-2023 Lymphocytes Auto (Unsp spec) [#/Vol] 1.89 10*3/uL 0.83-4.51 [facility] Basophil percentageOrdered B y: Tamar Atwood on 08-23-2023 Basophils/100 WBC (Bld) 0.6 % 0-1 [facility] Bilirubin [Mass/Vol] 0.90 mg/dL 0.20-1.00 [facility] Comment on above: For patients on eltr ombopag therapy, use of Dimension Bradley TBIL is not recommended. Chloride [Moles/Vol] 106 mmol/L 98-107 [facility] Cholesterol [Mass/Vol] 152 mg/dL <200 [facility] Comment on above: <200 mg/dL Desirable 200-240 mg/dL Borderline >240 mg/dL High Risk Eosinophils/100 WBC (Bld) 1.1 % 0-5 [facility] Glucose [Mass/Vol] 117 mg/dL 74-106 [facility] Comment on above: Fasting Glucose resu lt from 100 to 125 mg/dL suggests IMPAIRED HOMEOSTASIS per A.D.A. criteria. Neutrophils (Bld) [#/Vol] 5.6 10*3/uL 2.0-7.7 [facility] Neutrophils/100 WBC (Bld) 68.4 % 47-70 [facility] Potassium [Moles/Vol] 4.0 mmol/L 3.5-5.1 [facility] Protein [Mass/Vol] 6.8 g/dL 6.4-8.2 [facility] Sodium [Moles/Vol] 139 mmol/L 136-145 [facility] Triglyceride [Mass/Vol] 263 mg/dL <199 [facility] Comment on above: The drugs N-Acetylcy steine and Metamizole may falsely depress this assay.Serum Triglycerides Reference Interval Normal <150 mg/dL Borderline high 150 - 199 mg/dL High 200 - 499 mg/dL Very High > or = 500 mg/dL WBC (Bld) [#/Vol] 8.2 10*3/uL 4.4-11.0 [facility] Blood erythrocytes count (nu mber/volume)Ordered By: Tamar Atwood on 08-23-2023 RBC (Bld) [#/Vol] 5.08 10*6/uL 4.6-6.2 [facility] Blood hemoglobin measurement (mass/volume)Ordered By: Tamar Atwood on 08-23-2023 Hemoglobin (Bld) [Mass/Vol] 15.5 g/dL 13.0-16.5 [facility] Blood lymphocytes/100 leukoc ytesOrdered By: Tamar Atwood on 08-23-2023 Lymphocytes/100 WBC (Bld) 23.1 % 19-41 [facility] Blood monocytes/100 leukocyt esOrdered By: Tamar Atwood on 08-23-2023 Monocytes/100 WBC (Bld) 6.3 % 0-10 [facility] Blood platelet mean volumeOr dered By: Tamar Atwood on 08-23-2023 Platelet mean volume (Bld) [Entitic vol] 9.8 fL 6.2-12.0 [facility] Determination of erythrocyte mean corpuscular volume (MCV)Ordered By: Tamar Atwood on 08-23-2023 MCV (RBC) [Entitic vol] 91.9 fL 80-94 [facility] Hematocrit Auto (Bld) [Volum e fraction]Ordered By: Tamar Atwood on 08-23-2023 Hematocrit (Bld) [Volume fraction] 46.7 % 40-54 [facility] - Chemistry and C hemistry - challengeOrdered By: Tamar Atwood on 08-23-2023 ALP [Catalytic activity/Vol] 73 U/L 45-117 [facility] ALT [Catalytic activity/Vol] 29 U/L 16-61 [facility] CO2 [Moles/Vol] 28.0 mmol/L 21.0-32.0 [facility] Globulin (S) [Mass/Vol] 3.1 g/dL 2.2-4.2 [facility] Urea nitrogen/Creatinine [Mass ratio] 17.9 mg/mg 10-20 [facility] - Hematology and Cell countson 08-23-2023 HbA1c (Bld) [Mass fraction] 6.1 % 4.2-6.3 [facility] - Hematology and Cell countsOrdered By: Tamar Atwood on 08-23-2023 Erythrocyte distribution width (RBC) [Entitic vol] 40.8 fL 35.1-43.9 [facility] Erythrocyte distribution width (RBC) [Ratio] 12.1 % 11.6-14.6 [facility] Immature granulocytes/100 WBC (Bld) 0.500 % 0.0-0.9 [facility] Comment on above: IG% - Immature Granu locytes (promyelocytes, myelocytes and metamyelocytes) > 1% indicates that a LEFT SHIFT is Present. MCH (RBC) [Entitic mass] 30.5 pg 27.0-32.0 [facility] Nucleated RBC/100 WBC (Bld) [Ratio] 0 % 0-5 [facility] MCHC Auto (RBC) [Mass/Vol]Or dered By: Tamar Atwood on 08-23-2023 MCHC (RBC) [Mass/Vol] 33.2 g/dL 32-36 [facility] No Panel InformationOrdered By: Tamar Atwood on 08-23-2023 Estimated GFR (MDRD) Amer 109 mL/min >60 [facility] Comment on above: GFR Calc Estimated GFR (MDRD) Non-Af Amer 90 mL/min >60 [facility] Comment on above: Non- GFR Calc Prostate Specific Antigen Total 0.78 ng/mL 0.0-4.0 [facility] Comment on above: This test was perfor med using the TPSA assay method for [employer] chemistry system. Values obtained with differentassay methods cannot be used interchangably.When changing PSA assays in the course of monitoring apatient, additional sequential testing should be carriedout to confirm baseline values. Platelets bldOrdered By: Collin Atwood on 08-23-2023 Platelets (Bld) [#/Vol] 220 10*3/uL 150-450 [facility] Serum or plasma albumin kimberley urement (mass/volume)Ordered By: Tamar Atwood on 08-23-2023 Albumin [Mass/Vol] 3.7 g/dL 3.2-5.0 [facility] Serum or plasma albumin/glob ulin mass ratioOrdered By: Tamar Atwood on 08-23-2023 Albumin/Globulin [Mass ratio] 1.2 {ratio} 0.9-2.4 [facility] [facility] Serum or plasma calcium kimberley urement (mass/volume)Ordered By: Tamar Atwood on 08-23-2023 Calcium [Mass/Vol] 9.3 mg/dL 8.5-10.1 [facility] Serum or plasma cholesterol in HDL measurement (mass/volume)Ordered By: Tamar Atwood on 08-23-2023 Cholesterol in HDL [Mass/Vol] 36 mg/dL >40 [facility] Comment on above: The drugs N-Acetylcy steine and Metamizole may falsely depress this assay. Reference Range HDL <40 mg/dL Low HDL Cholesterol HDL >or= 60 mg/dL High HDL Cholesterol Serum or plasma cholesterol in VLDL measurement (mass/volume)Ordered By: Tamar Atwood on 08-23-2023 Cholesterol in VLDL [Mass/Vol] 53 mg/dL 5-40 [facility] Serum or plasma creatinine m easurement (mass/volume)Ordered By: Tamar Atwood on 08-23-2023 Creatinine [Mass/Vol] 0.90 mg/dL 0.70-1.30 [facility] Comment on above: The validity of the calculated GFR & GFRAA in patients over 70 years has not been determined. Clinical correlation is essential. Serum or plasma low density lipoprotein (LDL) cholesterol measurement (mass/volume)Ordered By: Tamar Atwood on 08-23-2023 Cholesterol in LDL [Mass/Vol] 63 mg/dL 0-130 [facility] Serum or plasma urea nitroge n measurement (mass/volume)Ordered By: Tamar Atwood on 08-23-2023 Urea nitrogen [Mass/Vol] 16 mg/dL 7-18 [facility] Thin prep Papanicolaou smear with manual screeningOrdered By: Tamar Atwood on 08-23-2023 Thin prep Papanicolaou smear with manual screening 13 U/L 15-37 [facility] Thin prep Papanicolaou smear with manual screening 5 5-15 [facility] Absolute lymphocyte countOrd ered By: Tamar Atwood on 10-18-2022 Lymphocytes Auto (Unsp spec) [#/Vol] 1.74 10*3/uL 0.83-4.51 [facility] Basophil percentageOrdered B y: Tamar Atwood on 10-18-2022 Basophils/100 WBC (Bld) 0.5 % 0-1 [facility] Bilirubin [Mass/Vol] 0.40 mg/dL 0.20-1.00 [facility] Comment on above: For patients on eltr ombopag therapy, use of Dimension Bradley TBIL is not recommended. Chloride [Moles/Vol] 104 mmol/L 98-107 [facility] Cholesterol [Mass/Vol] 157 mg/dL <200 [facility] Comment on above: <200 mg/dL Desirable 200-240 mg/dL Borderline >240 mg/dL High Risk Eosinophils/100 WBC (Bld) 1.2 % 0-5 [facility] Glucose [Mass/Vol] 135 mg/dL 74-106 [facility] Comment on above: Fasting Glucose resu lt greater than or equal to 126 mg/dL suggests DIABETES MELLITUS per A.D.A. criteria. Neutrophils (Bld) [#/Vol] 5.0 10*3/uL 2.0-7.7 [facility] Neutrophils/100 WBC (Bld) 66.8 % 47-70 [facility] Potassium [Moles/Vol] 4.1 mmol/L 3.5-5.1 [facility] Protein [Mass/Vol] 6.9 g/dL 6.4-8.2 [facility] Sodium [Moles/Vol] 140 mmol/L 136-145 [facility] Triglyceride [Mass/Vol] 288 mg/dL <199 [facility] Comment on above: The drugs N-Acetylcy steine and Metamizole may falsely depress this assay.Serum Triglycerides Reference Interval Normal <150 mg/dL Borderline high 150 - 199 mg/dL High 200 - 499 mg/dL Very High > or = 500 mg/dL WBC (Bld) [#/Vol] 7.5 10*3/uL 4.4-11.0 [facility] Blood erythrocytes count (nu mber/volume)Ordered By: Tamar Atwood on 10-18-2022 RBC (Bld) [#/Vol] 4.97 10*6/uL 4.6-6.2 [facility] Blood hemoglobin measurement (mass/volume)Ordered By: Tamar Atwood on 10-18-2022 Hemoglobin (Bld) [Mass/Vol] 15.8 g/dL 13.0-16.5 [facility] Blood lymphocytes/100 leukoc ytesOrdered By: Tamar Atwood on 10-18-2022 Lymphocytes/100 WBC (Bld) 23.4 % 19-41 [facility] Blood monocytes/100 leukocyt esOrdered By: Tamar Atwood on 10-18-2022 Monocytes/100 WBC (Bld) 7.8 % 0-10 [facility] Blood platelet mean volumeOr dered By: Tamar Atwood on 10-18-2022 Platelet mean volume (Bld) [Entitic vol] 9.8 fL 6.2-12.0 [facility] Determination of erythrocyte mean corpuscular volume (MCV)Ordered By: Tamar Atwood on 10-18-2022 MCV (RBC) [Entitic vol] 93.2 fL 80-94 [facility] Hematocrit Auto (Bld) [Volum e fraction]Ordered By: Tamar Atwood on 10-18-2022 Hematocrit (Bld) [Volume fraction] 46.3 % 40-54 [facility] Laboratory - Chemistry and C hemistry - challengeOrdered By: Tamar Atwood on 10-18-2022 ALP [Catalytic activity/Vol] 76 U/L 45-117 [facility] ALT [Catalytic activity/Vol] 33 U/L 16-61 [facility] CO2 [Moles/Vol] 28.0 mmol/L 21.0-32.0 [facility] Globulin (S) [Mass/Vol] 3.1 g/dL 2.2-4.2 [facility] Urea nitrogen/Creatinine [Mass ratio] 13.8 mg/mg 10-20 [facility] - Hematology and Cell countsOrdered By: Tamar Atwood on 10-18-2022 Erythrocyte distribution width (RBC) [Entitic vol] 42.6 fL 35.1-43.9 [facility] Erythrocyte distribution width (RBC) [Ratio] 12.4 % 11.6-14.6 [facility] Immature granulocytes/100 WBC (Bld) 0.300 % 0.0-0.9 [facility] Comment on above: IG% - Immature Granu locytes (promyelocytes, myelocytes and metamyelocytes) > 1% indicates that a LEFT SHIFT is Present. MCH (RBC) [Entitic mass] 31.8 pg 27.0-32.0 [facility] Nucleated RBC/100 WBC (Bld) [Ratio] 0 % 0-5 [facility] MCHC Auto (RBC) [Mass/Vol]Or dered By: Tamar Atwood on 10-18-2022 MCHC (RBC) [Mass/Vol] 34.1 g/dL 32-36 [facility] No Panel InformationOrdered By: Tamar Atwood on 10-18-2022 C-Reactive Protein High Sensitivity 0.67 mg/L <3.00 [facility] Comment on above: Low Relative Risk of CVD <1.0 mg/L Average Relative Risk of CVD 1.0 - 3.0 mg/L High Relative Risk of CVD >3.0 mg/L Estimated GFR (MDRD) Amer 87 mL/min >60 [facility] Comment on above: GFR Calc Estimated GFR (MDRD) Non-Af Amer 72 mL/min >60 [facility] Comment on above: Non- GFR Calc Prostate Specific Antigen Screen 0.86 ng/mL 0.00-4.00 [facility] Comment on above: This test was perfor med using the TPSA assay method for [employer] chemistry system. Values obtained with differentassay methods cannot be used interchangably.When changing PSA assays in the course of monitoring apatient, additional sequential testing should be carriedout to confirm baseline values. Platelets bldOrdered By: Collin Atwood on 10-18-2022 Platelets (Bld) [#/Vol] 225 10*3/uL 150-450 [facility] Serum or plasma albumin kimberley urement (mass/volume)Ordered By: Tamar Atwood on 10-18-2022 Albumin [Mass/Vol] 3.8 g/dL 3.2-5.0 [facility] Serum or plasma albumin/glob ulin mass ratioOrdered By: Tamar Atwood on 10-18-2022 Albumin/Globulin [Mass ratio] 1.2 {ratio} 0.9-2.4 [facility] Serum or plasma calcium kimberley urement (mass/volume)Ordered By: Tamar Atwood on 10-18-2022 Calcium [Mass/Vol] 8.9 mg/dL 8.5-10.1 [facility] Serum or plasma cholesterol in HDL measurement (mass/volume)Ordered By: Tamar Atwood on 10-18-2022 Cholesterol in HDL [Mass/Vol] 34 mg/dL >40 [facility] Comment on above: The drugs N-Acetylcy steine and Metamizole may falsely depress this assay. Reference Range HDL <40 mg/dL Low HDL Cholesterol HDL >or= 60 mg/dL High HDL Cholesterol Serum or plasma cholesterol in VLDL measurement (mass/volume)Ordered By: Tamar Atwood on 10-18-2022 Cholesterol in VLDL [Mass/Vol] 58 mg/dL 5-40 [facility] Serum or plasma creatinine m easurement (mass/volume)Ordered By: Tamar Atwood on 10-18-2022 Creatinine [Mass/Vol] 1.09 mg/dL 0.70-1.30 [facility] Comment on above: The validity of the calculated GFR & GFRAA in patients over 70 years has not been determined. Clinical correlation is essential. Serum or plasma low density lipoprotein (LDL) cholesterol measurement (mass/volume)Ordered By: Tamar Atwood on 10-18-2022 Cholesterol in LDL [Mass/Vol] 65 mg/dL 0-130 [facility] Serum or plasma urea nitroge n measurement (mass/volume)Ordered By: Tamar Atwood on 10-18-2022 Urea nitrogen [Mass/Vol] 15 mg/dL 7-18 [facility] Thin prep Papanicolaou smear with manual screeningOrdered By: Tamar Atwood on 10-18-2022 Thin prep Papanicolaou smear with manual screening 16 U/L 15-37 [facility] Thin prep Papanicolaou smear with manual screening 8 5-15 [facility] Whole blood hemoglobin A1c/t otal hemoglobin ratio (mass fraction)Ordered By: Tamar Atwood on 10-18-2022 HbA1c (Bld) [Mass fraction] 5.9 % 3.8-5.6 [facility] Comment on above: Normal < 5.7 [...] neural foraminal stenosis. Referring physician: Please call [phone] if you would like to speak with the radiologist about this report. 1045 Normal [facility] Absolute lymphocyte counton 10-06-2021 Lymphocytes Auto (Unsp spec) [#/Vol] 1.80 10*3/uL 0.83-4.51 [facility] Work Phone: Basophil percentageon 2021 Basophils/100 WBC (Bld) 1.0 % 0-1 [facility] Work Phone: Bilirubin [Mass/Vol] 0.50 mg/dL 0.20-1.00 [facility] Work Phone: Comment on above: For patients on eltr ombopag therapy, use of Dimension Bradley TBIL is not recommended. Chloride [Moles/Vol] 107 mmol/L 98-107 [facility] Work Phone: Cholesterol [Mass/Vol] 168 mg/dL <200 [facility] Work Phone: Comment on above: <200 mg/dL Desirable 200-240 mg/dL Borderline >240 mg/dL High Risk Eosinophils/100 WBC (Bld) 0.9 % 0-5 [facility] Work Phone: Glucose [Mass/Vol] 90 mg/dL 74-106 [facility] Work Phone: [phone] Neutrophils (Bld) [#/Vol] 4.1 10*3/uL 2.0-7.7 [facility] Work Phone: [phone] Neutrophils/100 WBC (Bld) 61.7 % 47-70 [facility] Work Phone: [phone] Potassium [Moles/Vol] 4.3 mmol/L 3.5-5.1 [facility] Work Phone: [phone] Protein [Mass/Vol] 6.9 g/dL 6.4-8.2 [facility] Work Phone: [phone] Sodium [Moles/Vol] 139 mmol/L 136-145 [facility] Work Phone: [phone] Triglyceride [Mass/Vol] 170 mg/dL [facility] Work Phone: [phone] Comment on above: The drugs N-Acetylcy steine and Metamizole may falsely depress this assay.Serum Triglycerides Reference Interval Normal <150 mg/dL Borderline high 150 - 199 mg/dL High 200 - 499 mg/dL Very High > or = 500 mg/dL WBC (Bld) [#/Vol] 6.7 10*3/uL 4.4-11.0 [facility] Work Phone: [phone] Blood erythrocytes count (nu mber/volume)on 10-06-2021 RBC (Bld) [#/Vol] 4.61 10*6/uL 4.6-6.2 [facility] Work Phone: Blood hemoglobin measurement (mass/volume)on 10-06-2021 Hemoglobin (Bld) [Mass/Vol] 14.3 g/dL 13.0-16.5 [facility] Work Phone: Blood lymphocytes/100 leukoc yteson 10-06-2021 Lymphocytes/100 WBC (Bld) 27.0 % 19-41 [facility] Work Phone: Blood monocytes/100 leukocyt eson 10-06-2021 Monocytes/100 WBC (Bld) 8.8 % 0-10 [facility] Work Phone: Blood platelet mean volumeon 10-06-2021 Platelet mean volume (Bld) [Entitic vol] 9.6 fL 6.2-12.0 [facility] Work Phone: Determination of erythrocyte mean corpuscular volume (MCV)on 10-06-2021 MCV (RBC) [Entitic vol] 90.2 fL 80-94 [facility] Work Phone: Hematocrit Auto (Bld) [Volum e fraction]on 10-06-2021 Hematocrit (Bld) [Volume fraction] 41.6 % 40-54 [facility] Work Phone: Laboratory - Chemistry and C hemistry - challengeon 10-06-2021 ALP [Catalytic activity/Vol] 87 U/L 45-117 [facility] Work Phone: ALT [Catalytic activity/Vol] 24 U/L 16-61 [facility] Work Phone: CO2 [Moles/Vol] 30.0 mmol/L 21.0-32.0 [facility] Work Phone: Globulin (S) [Mass/Vol] 3.2 g/dL 2.2-4.2 [facility] Work Phone: Urea nitrogen/Creatinine [Mass ratio] 14.2 mg/mg 10-20 [facility] Work Phone: Laboratory - Hematology and Cell countson 10-06-2021 Erythrocyte distribution width (RBC) [Entitic vol] 43.8 fL 35.1-43.9 [facility] Work Phone: Erythrocyte distribution width (RBC) [Ratio] 13.5 % 11.6-14.6 [facility] Work Phone: Immature granulocytes/100 WBC (Bld) 0.600 % 0.0-0.9 [facility] Work Phone: Comment on above: IG% - Immature Granu locytes (promyelocytes, myelocytes and metamyelocytes) > 1% indicates that a LEFT SHIFT is Present. MCH (RBC) [Entitic mass] 31.0 pg 27.0-32.0 [facility] Work Phone: Nucleated RBC/100 WBC (Bld) [Ratio] 0 % 0-5 [facility] Work Phone: MCHC Auto (RBC) [Mass/Vol]on 10-06-2021 MCHC (RBC) [Mass/Vol] 34.4 g/dL 32-36 [facility] Work Phone: No Panel Informationon 10-06 Estimated GFR (MDRD) Amer 107 mL/min >60 [facility] Work Phone: Comment on above: GFR Calc Estimated GFR (MDRD) Non-Af Amer 88 mL/min >60 [facility] Work Phone: Comment on above: Non- GFR Calc Prostate Specific Antigen Total 0.86 ng/mL 0.0-4.0 [facility] Work Phone: Comment on above: This test was perfor med using the TPSA assay method for [employer] [facility] [employer]. Values obtained with differentassay methods cannot be used interchangably.When changing PSA assays in the course of monitoring apatient, additional sequential testing should be carriedout to confirm baseline values. Platelets bldon 10-06-2021 Platelets (Bld) [#/Vol] 237 10*3/uL 150-450 [facility] Work Phone: Serum or plasma albumin kimberley urement (mass/volume)on 10-06-2021 Albumin [Mass/Vol] 3.7 g/dL 3.2-5.0 [facility] Work Phone: Serum or plasma albumin/glob ulin mass ratioon 10-06-2021 Albumin/Globulin [Mass ratio] 1.2 {ratio} 0.9-2.4 [facility] Work Phone: Serum or plasma calcium kimberley urement (mass/volume)on 10-06-2021 Calcium [Mass/Vol] 9.4 mg/dL 8.5-10.1 [facility] Work Phone: Serum or plasma cholesterol in HDL measurement (mass/volume)on 10-06-2021 Cholesterol in HDL [Mass/Vol] 31 mg/dL [facility] Work Phone: Comment on above: The drugs N-Acetylcy steine and Metamizole may falsely depress this assay. Reference Range HDL <40 mg/dL Low HDL Cholesterol HDL >or= 60 mg/dL High HDL Cholesterol Serum or plasma cholesterol in VLDL measurement (mass/volume)on 10-06-2021 Cholesterol in VLDL [Mass/Vol] 34 mg/dL 5-40 [facility] Work Phone: Serum or plasma creatinine m easurement (mass/volume)on 10-06-2021 Creatinine [Mass/Vol] 0.92 mg/dL 0.70-1.30 [facility] Work Phone: Comment on above: The validity of the calculated GFR & GFRAA in patients over 70 years has not been determined. Clinical correlation is essential. Serum or plasma low density lipoprotein (LDL) cholesterol measurement (mass/volume)on 10-06-2021 Cholesterol in LDL [Mass/Vol] 103 mg/dL 0-130 [facility] Work Phone: Serum or plasma urea nitroge n measurement (mass/volume)on 10-06-2021 Urea nitrogen [Mass/Vol] 13 mg/dL 7-18 [facility] Work Phone: Thin prep Papanicolaou smear with manual screeningon 10-06-2021 Thin prep Papanicolaou smear with manual screening 19 U/L 15-37 [facility] Work Phone: Thin prep Papanicolaou smear with manual screening 2 5-15 [facility] Work Phone: Whole blood hemoglobin A1c/t otal hemoglobin ratio (mass fraction)on 10-06-2021 HbA1c (Bld) [Mass fraction] 6.6 % 3.8-5.6 [facility] Work Phone: Comment on above: Normal [...] effusion or pleural thickening. This is unchanged. Sampling Expert: HADLEY Transcribe Date/Time: May 17 2021 1:42P Dictated by : CHERISE BUSTILLO MD This examination was interpreted and the report reviewed and electronically signed by: CHERISE BUSTILLO MD on May 17 2021 1:45PM EST [id number] Normal [facility] XR SHLDR >/=3V AP/OZZIE AP/OTH R [...] NO ACUTE BONY ABNORMALITY MILD DEGENERATIVE CHANGES Sampling Expert: [facility] Transcribe Date/Time: Jul 27 2020 9:40A Dictated by : DEVORA SAUCEDA MD This examination was interpreted and the report reviewed and electronically signed by: DEVORA SAUCEDA MD on Jul 27 2020 9:43AM EST Normal [facility] Glucose Meteron 10-19-2019 Glucose [Mass/Vol] 150 mg/dL High 70-99 [facility] Comment on above: Result Comment: RAVIN TONEY Performed By: #### G LMET #### [address] [address] Hemogramon 10-19-2019 Erythrocyte distribution width (RBC) [Ratio] 12.3 % Normal 11.6-14.4 [facility] Comment on above: Performed By: #### T ROP #### [address] [address] Hematocrit (Bld) [Volume fraction] 39.3 % Low 40.1-51.0 [facility] Comment on above: Performed By: #### T ROP #### [address] [address] Hemoglobin (Bld) [Mass/Vol] 13.6 g/dL Low 13.7-17.5 [facility] Comment on above: Performed By: #### T ROP #### [facility] [address] [address] MCH (RBC) [Entitic mass] 31.2 pg Normal 25.7-32.2 [facility] Comment on above: Performed By: #### T ROP #### [facility] [address] [address] MCHC (RBC) [Mass/Vol] 34.6 % Normal 32.3-36.5 [facility] Comment on above: Performed By: #### T ROP #### [facility] [address] [address] MCV (RBC) [Entitic vol] 90.1 fL Normal 83.2-95.6 [facility] Comment on above: Performed By: #### T ROP #### [place] [address] Platelet mean volume (Bld) [Entitic vol] 10.4 fL Normal 8.7-12.0 [facility] Comment on above: Performed By: #### T ROP #### [place] [address] Platelets (Bld) [#/Vol] 163 thou/cmm Normal 141-365 [facility] Comment on above: Performed By: #### T ROP #### [place] [address] RBC (Bld) [#/Vol] 4.36 mil/cmm Low 4.63-6.08 [facility] Comment on above: Performed By: #### T ROP #### [facility] [address] [address] RDW SD 40.3 fl Normal 36.1-45.8 [facility] Comment on above: Performed By: #### T ROP #### [place] [address] WBC (Bld) [#/Vol] 9.56 thou/cmm High 4.23-9.07 [facility] Comment on above: Performed By: #### T ROP #### [facility] [address] [address] MDRD GFRon 10-19-2019 GFR/1.73 sq M predicted among non-blacks MDRD (S/P/Bld) [Vol rate/Area] mL/min/{1.73_m2} Normal >60mL/min/1. 73m2 [facility] Comment on above: Result Comment: If t he patient is , multiply the result by 1.210. Performed By: #### T ROP #### [place] [address] Renal Panelon 10-19-2019 Anion gap [Moles/Vol] 10 mmol/L Normal 8-16 [facility] Comment on above: Performed By: #### R ENAL #### [place] [address] Potassium [Moles/Vol] 3.5 mmol/L Normal 3.5-5.1 [facility] Comment on above: Result Comment: SPEC IMEN SLIGHTLY HEMOLYZED Performed By: #### R ENAL #### [place] [address] Creatinine [Mass/Vol] 0.65 mg/dL Low 0.67-1.17 [facility] Comment on above: Result Comment: Use of this assay is not recommended for patients undergoing treatment with phenindione, due to the potential for falsely depressed results. Performed By: #### R ENAL #### [place] [address] Phosphate [Mass/Vol] 2.3 mg/dL Low 2.5-4.9 [facility] Comment on above: Performed By: #### R ENAL #### [place] [address] Albumin [Mass/Vol] 2.9 g/dL Low 3.4-5.0 [facility] Comment on above: Performed By: #### R ENAL #### [address], [place] [address] CO2 [Moles/Vol] 23 mmol/L Normal 21-32 [facility] Comment on above: Performed By: #### R ENAL #### [facility] [address] [place], [place] [address] Glucose [Mass/Vol] 236 mg/dL High 70-99 [facility] Comment on above: Performed By: #### R ENAL #### [facility] [address] [place], [place] [address] Urea nitrogen [Mass/Vol] 11 mg/dL Normal 7-18 [facility] Comment on above: Performed By: #### R ENAL #### [facility] [address] [place], [place] [address] Calcium [Mass/Vol] 8.6 mg/dL Normal 8.5-10.1 [facility] Comment on above: Performed By: #### R ENAL #### [facility] [address] [place], [place] [address] Chloride [Moles/Vol] 108 mmol/L High 98-107 [facility] Comment on above: Performed By: #### R ENAL #### [facility] [address] [place] [address] Sodium [Moles/Vol] 137 mmol/L Normal 136-145 [facility] Comment on above: Performed By: #### R ENAL #### [place] [address] Basic Panelon 10-18-2019 Creatinine [Mass/Vol] 0.72 mg/dL Normal 0.67-1.17 [facility] Comment on above: Result Comment: Use of this assay is not recommended for patients undergoing treatment with phenindione, due to the potential for falsely depressed results. Performed By: #### T ROP #### [facility] [address] [place] [address] Anion gap [Moles/Vol] 12 mmol/L Normal 8-16 [facility] Comment on above: Performed By: #### T ROP #### [address] [address] CO2 [Moles/Vol] 23 mmol/L Normal 21-32 [facility] Comment on above: Performed By: #### T ROP #### [facility] [address] [place], [place] [address] Glucose [Mass/Vol] 202 mg/dL High 70-99 [facility] Comment on above: Performed By: #### T ROP #### [facility] [address] [place], [place] [address] Urea nitrogen [Mass/Vol] 12 mg/dL Normal 7-18 [facility] Comment on above: Performed By: #### T ROP #### [facility] [address] [place], [place] [address] Calcium [Mass/Vol] 8.7 mg/dL Normal 8.5-10.1 [facility] Comment on above: Performed By: #### T ROP #### [facility] [address] [place] [address] Chloride [Moles/Vol] 106 mmol/L Normal 98-107 [facility] Comment on above: Performed By: #### T ROP #### [facility] [address] [place], [place] [address] Potassium [Moles/Vol] 3.9 mmol/L Normal 3.5-5.1 [facility] Comment on above: Performed By: #### T ROP #### [facility] [address] [place] [address] Sodium [Moles/Vol] 137 mmol/L Normal 136-145 [facility] Comment on above: Performed By: #### T ROP #### [facility] [address] [place], [place] [address] Hemogramon 10-18-2019 Erythrocyte distribution width (RBC) [Ratio] 12.5 % Normal 11.6-14.4 [facility] Comment on above: Performed By: #### C BC1 #### [facility] [address] [place], [place] [address] Hematocrit (Bld) [Volume fraction] 39.9 % Low 40.1-51.0 [facility] Comment on above: Performed By: #### C BC1 #### [facility] [address] [place] [address] Hemoglobin (Bld) [Mass/Vol] 13.5 g/dL Low 13.7-17.5 [facility] Comment on above: Performed By: #### C BC1 #### [facility] [address] [place] [address] MCH (RBC) [Entitic mass] 30.7 pg Normal 25.7-32.2 [facility] Comment on above: Performed By: #### C BC1 #### [facility] [address] [place] [address] MCHC (RBC) [Mass/Vol] 33.8 % Normal 32.3-36.5 [facility] Comment on above: Performed By: #### C BC1 #### [facility] [address] [place] [address] MCV (RBC) [Entitic vol] 90.7 fL Normal 83.2-95.6 [facility] Comment on above: Performed By: #### C BC1 #### [facility] [address] [place] [address] Platelet mean volume (Bld) [Entitic vol] 10.5 fL Normal 8.7-12.0 [facility] Comment on above: Performed By: #### C BC1 #### [facility] [address] [place] [address] Platelets (Bld) [#/Vol] 170 thou/cmm Normal 141-365 [facility] Comment on above: Performed By: #### C BC1 #### [facility] [address] [place] [address] RBC (Bld) [#/Vol] 4.40 mil/cmm Low 4.63-6.08 [facility] Comment on above: Performed By: #### C BC1 #### [facility] [address] [place] [address] RDW SD 40.9 fl Normal 36.1-45.8 [facility] Comment on above: Performed By: #### C BC1 #### [facility] [address] [place] [address] WBC (Bld) [#/Vol] 10.58 thou/cmm High 4.23-9.07 [facility] Comment on above: Performed By: #### C BC1 #### [facility] [address] [place], [place] [address] Hgb A1con 10-18-2019 HbA1c (Bld) [Mass fraction] 9.0 % High 4.2-6.3 [facility] Comment on above: Result Comment: Meth od is National Glycohemoglobin Standardization Program (NGSP) compliant. Performed By: #### H A1C #### [facility] [address] [place], [place] [address] HbA1c (Bld) [Mass fraction] 212 mg/dl Normal [facility] Comment on above: Performed By: #### H A1C #### [facility] [address] [place], [place] [address] Lipid Profileon 10-18-2019 Cholesterol in HDL [Mass/Vol] 28 mg/dL Normal >40 [facility] Comment on above: Performed By: #### H A1C #### [facility] [address] [place], [place] [address] Cholesterol in LDL [Mass/Vol] 113 mg/dL Normal [facility] Comment on above: Result Comment: No C AD and with fewer than 2 CAD risk factors <160 mg/dL No CAD but with 2 or more CAD risk factors <130 mg/dL Definite CAD or other atherosclerotic disease <100 mg/dL Performed By: #### H A1C #### [address] [address] Cholesterol in LDL/Cholesterol in HDL [Mass ratio] 4.0 Normal 1.1-4.8 [facility] Comment on above: Result Comment: LDL, VLDL,LDL/HDL, Invalid if Triglyceride >400 Performed By: #### H A1C #### [facility] [address] [place], [place] [address] Cholesterol in VLDL [Mass/Vol] 33 mg/dL Normal <50 Desired [facility] Comment on above: Performed By: #### H A1C #### [facility] [address] [place], [place] [address] Cholesterol.total/Choles terol in HDL [Mass ratio] 6.2 {ratio} Normal 2.1-7.3 [facility] Comment on above: Performed By: #### H A1C #### [place] [address] Triglyceride [Mass/Vol] 164 mg/dL High 0-149 [facility] Comment on above: Result Comment: < 20 0 Desirable Result invalid if not a fasting specimen. Performed By: #### H A1C #### [place] [address] Cholesterol [Mass/Vol] 174 mg/dL Normal 0-199 [facility] Comment on above: Result Comment: <200 Desirable 200-240 Borderline >240 High Performed By: #### H A1C #### [place] [address] Troponin Ion 10-18-2019 Troponin I.cardiac [Mass/Vol] 98.800 ng/mL Critically high 0.015-0.045 [facility] Comment on above: Performed By: #### H A1C #### [place] [address] Troponin I.cardiac [Mass/Vol] 127.000 ng/mL Critically high 0.015-0.045 [facility] Comment on above: Performed By: #### H A1C #### [place] [address] ACT Arterial Panel (i-STAT)o n 10-17-2019 Kaolin ACT ( i-STAT) 307 sec High 74-137 [facility] Comment on above: Performed By: #### A CTIA #### [place] [address] Amylase Bloodon 10-17-2019 Amylase [Catalytic activity/Vol] 47 U/L Normal 25-115 [facility] Comment on above: Performed By: #### T ROP #### [place] [address] CPKon 10-17-2019 CPK 91 U/L Normal 39-308 [facility] Comment on above: Performed By: #### L CK #### [place] [address] Comprehensive Panelon 2019 Albumin [Mass/Vol] 3.6 g/dL Normal 3.4-5.0 [facility] Comment on above: Performed By: #### H A1C #### [facility] [address] [place] [address] ALP [Catalytic activity/Vol] 81 U/L Normal 46-116 [facility] Comment on above: Performed By: #### H A1C #### [facility] [address] [place] [address] ALT-SGPT Blood 54 U/L Normal 14-63 [facility] Comment on above: Performed By: #### H A1C #### [facility] [address] [place] [address] Anion gap [Moles/Vol] 13 mmol/L Normal 8-20 [facility] Comment on above: Performed By: #### H A1C #### [place] [address] AST-SGOT Blood 23 U/L Normal 15-37 [facility] Comment on above: Performed By: #### H A1C #### [facility] [address] [place] [address] Bilirubin Ql (U) 0.6 mg/dL Normal 0.2-1.0 [facility] Comment on above: Result Comment: Use of this assay is not recommended for patients undergoing treatment with eltrombopag due to the potential for falsely elevated results. Performed By: #### H A1C #### [facility] [address] [place] [address] Calcium [Mass/Vol] 9.2 mg/dL Normal 8.5-10.1 [facility] Comment on above: Performed By: #### H A1C #### [facility] [address] [place] [address] CO2 Blood 27 mEq/L Normal 21-32 [facility] Comment on above: Performed By: #### H A1C #### [facility] [address] [place] [address] Creatinine [Mass/Vol] 0.81 mg/dL Normal 0.67-1.17 [facility] Comment on above: Result Comment: Use of this assay is not recommended for patients undergoing treatment with phenindione, due to the potential for falsely depressed results. Performed By: #### H A1C #### [facility] [address] [place], [place] [address] Glucose [Mass/Vol] 211 mg/dL High 70-99 [facility] Comment on above: Performed By: #### H A1C #### [facility] [address] [place], [place] [address] Protein [Mass/Vol] 6.8 g/dL Normal 6.4-8.2 [facility] Comment on above: Performed By: #### H A1C #### [facility] [address] [place], [place] [address] Urea nitrogen [Mass/Vol] 12 mg/dL Normal 7-18 [facility] Comment on above: Performed By: #### H A1C #### [facility] [address] [place], [place] [address] Urea nitrogen/Creatinine [Mass ratio] 15 mg/mg Normal 10-20 [facility] Comment on above: Performed By: #### H A1C #### [facility] [address] [place], [place] [address] Chloride [Moles/Vol] 103 mmol/L Normal 98-109 [facility] Comment on above: Result Comment: Test ing performed on an Wray i-STAT. Performed By: #### H A1C #### [address] [address] Potassium [Moles/Vol] 3.6 mmol/L Normal 3.5-4.9 [facility] Comment on above: Result Comment: Test ing performed on an Wray i-STAT. Performed By: #### H A1C #### [facility] [address] [place], [place] [address] Sodium [Moles/Vol] 139 mmol/L Normal 138-146 [facility] Comment on above: Result Comment: Test ing performed on an Wray i-STAT. Performed By: #### H A1C #### [address] [address] D-Dimer Quantitativeon 10-16 D-Dimer Quantitative 377 ng/mL(FEU) Normal <450 [facility] Comment on above: Result Comment: 500 ng/mL [...] >=35.8%. Performed By: #### L DMR #### [place] [address] Hemogram/Diffon 10-17-2019 Abs. Baso 0.03 thou/cmm Normal 0.00-0.08 [facility] Comment on above: Performed By: #### H A1C #### [place] [address] Abs. [place] 0.52 thou/cmm Normal 0.20-1.00 [facility] Comment on above: Performed By: #### H A1C #### [place] [address] Abs. Neut (ANC) 3.08 thou/cmm Normal 3.00-5.67 [facility] Comment on above: Performed By: #### H A1C #### [place] [address] Basophils/100 WBC (Bld) 0.5 % Normal [facility] Comment on above: Performed By: #### H A1C #### [place] [address] Eosinophils (Bld) [#/Vol] 0.07 thou/cmm Normal 0.00-0.41 [facility] Comment on above: Performed By: #### H A1C #### [address] [place], [place] [address] Eosinophils/100 WBC (Bld) 1.3 % Normal [facility] Comment on above: Performed By: #### H A1C #### [facility] [address] [place], [place] [address] Erythrocyte distribution width (RBC) [Ratio] 12.5 % Normal 11.5-15.9 [facility] Comment on above: Performed By: #### H A1C #### [facility] [address] [place] [address] Hematocrit (Bld) [Volume fraction] 42.3 % Normal 42.0-52.0 [facility] Comment on above: Performed By: #### H A1C #### [facility] [address] [place] [address] Hemoglobin (Bld) [Mass/Vol] 15.0 g/dL Normal 14.0-18.0 [facility] Comment on above: Performed By: #### H A1C #### [facility] [address] [place] [address] Lymphocytes (Bld) [#/Vol] 1.80 thou/cmm Normal 1.50-3.65 [facility] Comment on above: Performed By: #### H A1C #### [facility] [address] [place] [address] Lymphocytes/100 WBC (Bld) 32.8 % Normal [facility] Comment on above: Performed By: #### H A1C #### [facility] [address] [place] [address] MCH (RBC) [Entitic mass] 31.8 pg High 27.0-31.0 [facility] Comment on above: Performed By: #### H A1C #### [facility] [address] [place] [address] MCHC (RBC) [Mass/Vol] 35.5 % Normal 32.0-36.0 [facility] Comment on above: Performed By: #### H A1C #### [facility] [address] [place] [address] MCV (RBC) [Entitic vol] 89.8 fL Normal 80.0-94.0 [facility] Comment on above: Performed By: #### H A1C #### [facility] [address] [place], [place] [address] Monocytes/100 WBC (Bld) 9.5 % Normal [facility] Comment on above: Performed By: #### H A1C #### [facility] [address] [place], [place] [address] Platelet mean volume (Bld) [Entitic vol] 9.8 fL Normal 7.1-10.5 [facility] Comment on above: Performed By: #### H A1C #### [facility] [address] [place], [place] [address] Platelets (Bld) [#/Vol] 188 thou/cmm Normal 150-400 [facility] Comment on above: Performed By: #### H A1C #### [facility] [address] [place], [place] [address] RBC (Bld) [#/Vol] 4.71 mil/cmm Normal 4.60-6.20 [facility] Comment on above: Performed By: #### H A1C #### [facility] [address] [place], [place] [address] Seg Neutrophil 55.9 % Normal [facility] Comment on above: Performed By: #### H A1C #### [facility] [address] [place], [place] [address] WBC (Bld) [#/Vol] 5.5 thou/cmm Normal 4.8-10.5 [facility] Comment on above: Performed By: #### H A1C #### [facility] [address] [place] [address] Lipase Bloodon 10-17-2019 Lipase Blood 128 U/L Normal 73-393 [facility] Comment on above: Performed By: #### H A1C #### [facility] [address] [place], [place] [address] MDRD eGFRon 10-17-2019 GFR/1.73 sq M predicted among non-blacks MDRD (S/P/Bld) [Vol rate/Area] mL/min/{1.73_m2} Normal >60mL/min/1. 73m2 [facility] Comment on above: Result Comment: If t he patient is , multiply the result by 1.210. Performed By: #### H A1C #### [place] [address] Magnesium Bloodon 10-17-2019 Magnesium [Mass/Vol] 1.6 mg/dL Low 1.8-2.4 [facility] Comment on above: Performed By: #### T ROP #### [place] [address] N-terminal Pro-BNPon 020 Natriuretic peptide B (Bld) [Mass/Vol] 65.8 pg/mL Normal [facility] Comment on above: Result Comment: Norm al Reference Range: Patients <75 yrs old <125pg/ml Patients >=75 yrs old <450 pg/ml Performed By: #### L PBNP #### [place] [address] Troponin Ion 10-17-2019 Troponin I.cardiac [Mass/Vol] 111.000 ng/mL Critically high 0.015-0.045 [facility] Comment on above: Performed By: #### H A1C #### [place] [address] Troponin I.cardiac [Mass/Vol] 97.800 ng/mL Critically high 0.015-0.045 [facility] Comment on above: Performed By: #### T ROP #### [place] [address] Troponin I.cardiac [Mass/Vol] 66.900 ng/mL Critically high 0.015-0.045 [facility] Comment on above: Performed By: #### T ROP #### [place] [address] Troponin I.cardiac [Mass/Vol] ng/mL Normal <=0.07 [facility] Comment on above: Performed By: #### L TRP #### [place] [address] XR CHEST 1V FRONTALon 2019 XR CHEST [...] acute osseous findings. IMPRESSION: No acute process. Sampling Expert: HADLEY Transcribe Date/Time: Oct 17 2019 10:07A Dictated by : CHRISTINA YBARRA MD This examination was interpreted and the report reviewed and electronically signed by: CHRISTINA YBARRA MD on Oct 17 2019 10:10AM EST Normal [facility] Vital Signs Date Time Vital Sign Value Performing Clinician Adam javier 01-28-2025 08:10-0400 Body mass index (BMI) [Ratio] 27.8 kg/m2 Tamar Atwood THRESHING DEPARTMENT SUPERVISOR-C Work Phone: [facility] 01-28-2025 08:10-0400 Body weight 87.99 kg Tamar Atwood THRESHING DEPARTMENT SUPERVISOR-C Work Phone: [facility] 01-28-2025 08:10-0400 Diastolic blood pressure 63 mm[Hg] Tamar Atwood THRESHING DEPARTMENT SUPERVISOR-C Work Phone: [facility] 01-28-2025 08:10-0400 Heart rate 61 /min Tamar Atwood THRESHING DEPARTMENT SUPERVISOR-C Work Phone: [facility] 01-28-2025 08:10-0400 Respiratory rate 18 /min Tamar Atwood THRESHING DEPARTMENT SUPERVISOR-C Work Phone: [facility] 01-28-2025 08:10-0400 Systolic blood pressure 94 mm[Hg] Tamar Atwood THRESHING DEPARTMENT SUPERVISOR-C Work Phone: [facility] 07-16-2024 10:49-0500 Body mass index (BMI) [Ratio] 26.88 kg/m2 Fidelina Kaye WEB PRESS OPERATOR ASSISTANT.BINDERY WORKER Work Phone: [facility] 07-16-2024 10:49-0500 Body temperature 98.1 [degF] Fidelina Kaye WEB PRESS OPERATOR ASSISTANT.BINDERY WORKER Work Phone: [facility] 07-16-2024 10:49-0500 Body weight 89.9 kg Fidelina Kaye WEB PRESS OPERATOR ASSISTANT.BINDERY WORKER Work Phone: [facility] 07-16-2024 10:49-0500 Diastolic blood pressure 69 mm[Hg] Fidelina Kaye WEB PRESS OPERATOR ASSISTANT.BINDERY WORKER Work Phone: [facility] 07-16-2024 10:49-0500 Heart rate 73 /min Fidelina Kaye WEB PRESS OPERATOR ASSISTANT.BINDERY WORKER Work Phone: [facility] 07-16-2024 10:49-0500 SaO2% (BldA) [Mass fraction] 97 % Fidelina Kaye WEB PRESS OPERATOR ASSISTANT.BINDERY WORKER Work Phone: [facility] 07-16-2024 10:49-0500 Systolic blood pressure 114 mm[Hg] Fidelina Kaye WEB PRESS OPERATOR ASSISTANT.BINDERY WORKER Work Phone: [facility] 08-23-2023 14:33-0500 Body height 177.8 cm [facility] 08-23-2023 14:33-0500 Body mass index (BMI) [Ratio] 28.3 kg/m2 [facility] 08-23-2023 14:33-0500 Body temperature 97.2 [degF] [facility] [place] [facility] 08-23-2023 14:33-0500 Body weight 89.35 kg [facility] 08-23-2023 14:33-0500 Diastolic blood pressure 70 mm[Hg] [facility] 08-23-2023 14:33-0500 Heart rate 83 /min [facility] 08-23-2023 14:33-0500 Respiratory rate 18 /min [facility] [place] [facility] 08-23-2023 14:33-0500 SaO2% (BldA) [Mass fraction] 97 % [facility] 08-23-2023 14:33-0500 Systolic blood pressure 122 mm[Hg] [facility] 10-18-2022 16:50-0500 Body height 177.8 cm [facility] 10-18-2022 16:50-0500 Body mass index (BMI) [Ratio] 28.8 kg/m2 [facility] 10-18-2022 16:50-0500 Body temperature 97.5 [degF] [facility] [place] [facility] 10-18-2022 16:50-0500 Body weight 91.17 kg [facility] 10-18-2022 16:50-0500 Diastolic blood pressure 70 mm[Hg] [facility] 10-18-2022 16:50-0500 Heart rate 89 /min [facility] 10-18-2022 16:50-0500 Respiratory rate 18 /min [facility] [place] [facility] 10-18-2022 16:50-0500 SaO2% (BldA) [Mass fraction] 95 % [facility] 10-18-2022 16:50-0500 Systolic blood pressure 118 mm[Hg] [facility] 08-07-2022 14:30-0500 Body mass index (BMI) [Ratio] 29 kg/m2 [facility] 08-07-2022 14:30-0500 Body temperature 97.2 [degF] [facility] [place] [facility] 08-07-2022 14:30-0500 Body weight 91.62 kg [facility] 08-07-2022 14:30-0500 Diastolic blood pressure 70 mm[Hg] [facility] 08-07-2022 14:30-0500 Heart rate 80 /min [facility] 08-07-2022 14:30-0500 Respiratory rate 18 /min [facility] [place] [facility] 08-07-2022 14:30-0500 SaO2% (BldA) [Mass fraction] 98 % [facility] 08-07-2022 14:30-0500 Systolic blood pressure 138 mm[Hg] [facility] 02-15-2022 09:25-0400 Body height 177.8 cm DIANA Atwood NP Work Phone: [facility] Work Phone: 02-15-2022 09:25-0400 Body mass index (BMI) [Ratio] 28.3 kg/m2 THRESHING DEPARTMENT SUPERVISOR-C Tamar Atwood THRESHING DEPARTMENT SUPERVISOR Work Phone: [facility] Work Phone: 02-15-2022 09:25-0400 Body weight 89.35 kg THRESHING DEPARTMENT SUPERVISOR-C Tamar Atwood THRESHING DEPARTMENT SUPERVISOR Work Phone: [facility] Work Phone: 02-15-2022 09:25-0400 Diastolic blood pressure 74 mm[Hg] THRESHING DEPARTMENT SUPERVISOR-C Tamar Atwood THRESHING DEPARTMENT SUPERVISOR Work Phone: [facility] Work Phone: 02-15-2022 09:25-0400 Heart rate 63 /min THRESHING DEPARTMENT SUPERVISOR-C Tamar Atwood THRESHING DEPARTMENT SUPERVISOR Work Phone: [facility] Work Phone: 02-15-2022 09:25-0400 Respiratory rate 18 /min THRESHING DEPARTMENT SUPERVISOR-C Tamar Atwood THRESHING DEPARTMENT SUPERVISOR Work Phone: [facility] Work Phone: 02-15-2022 09:25-0400 Systolic blood pressure 111 mm[Hg] THRESHING DEPARTMENT SUPERVISOR-C Tamar Atwood THRESHING DEPARTMENT SUPERVISOR Work Phone: [facility] Work Phone: 11-22-2021 14:49-0400 Body height 177.8 cm THRESHING DEPARTMENT SUPERVISOR-C Tamar Atwood THRESHING DEPARTMENT SUPERVISOR Work Phone: [facility] Work Phone: 11-22-2021 14:49-0400 Body mass index (BMI) [Ratio] 28.7 kg/m2 THRESHING DEPARTMENT SUPERVISOR-C Tamar Atwood THRESHING DEPARTMENT SUPERVISOR Work Phone: [facility] Work Phone: 11-22-2021 14:49-0400 Body temperature 97.8 [degF] THRESHING DEPARTMENT SUPERVISOR-C Tamar Juradoson THRESHING DEPARTMENT SUPERVISOR Work Phone: [facility] Work Phone: 11-22-2021 14:49-0400 Body weight 90.71 kg THRESHING DEPARTMENT SUPERVISOR-C Tamar Atwood THRESHING DEPARTMENT SUPERVISOR Work Phone: [facility] Work Phone: 11-22-2021 14:49-0400 Diastolic blood pressure 79 mm[Hg] THRESHING DEPARTMENT SUPERVISOR-C Tamar Atwood THRESHING DEPARTMENT SUPERVISOR Work Phone: [facility] Work Phone: 11-22-2021 14:49-0400 Heart rate 82 /min THRESHING DEPARTMENT SUPERVISOR-C Tamar Atwood THRESHING DEPARTMENT SUPERVISOR Work Phone: [facility] Work Phone: 11-22-2021 14:49-0400 Respiratory rate 18 /min THRESHING DEPARTMENT SUPERVISOR-C Tamar Atwood THRESHING DEPARTMENT SUPERVISOR Work Phone: [facility] Work Phone: 11-22-2021 14:49-0400 SaO2% (BldA) [Mass fraction] 97 % THRESHING DEPARTMENT SUPERVISOR-C Tamar Atwood THRESHING DEPARTMENT SUPERVISOR Work Phone: [facility] Work Phone: 11-22-2021 14:49-0400 Systolic blood pressure 110 mm[Hg] THRESHING DEPARTMENT SUPERVISOR-C Tamar Atowod THRESHING DEPARTMENT SUPERVISOR Work Phone: [facility] Work Phone: 10-10-2021 11:51-0500 Body height 177.8 cm THRESHING DEPARTMENT SUPERVISOR-C Tamar Atwood THRESHING DEPARTMENT SUPERVISOR Work Phone: [facility] Work Phone: 10-10-2021 11:51-0500 Body mass index (BMI) [Ratio] 28.7 kg/m2 THRESHING DEPARTMENT SUPERVISOR-C Tamar Atwood THRESHING DEPARTMENT SUPERVISOR Work Phone: [facility] Work Phone: 10-10-2021 11:51-0500 Body weight 90.71 kg THRESHING DEPARTMENT SUPERVISOR-C Tamar Atwood THRESHING DEPARTMENT SUPERVISOR Work Phone: [facility] Work Phone: 10-10-2021 11:51-0500 Diastolic blood pressure 79 mm[Hg] THRESHING DEPARTMENT SUPERVISOR-C Tamar Atwood THRESHING DEPARTMENT SUPERVISOR Work Phone: [facility] Work Phone: 10-10-2021 11:51-0500 Heart rate 82 /min THRESHING DEPARTMENT SUPERVISOR-C Tamar Atwood THRESHING DEPARTMENT SUPERVISOR Work Phone: [facility] Work Phone: 10-10-2021 11:51-0500 Respiratory rate 16 /min THRESHING DEPARTMENT SUPERVISOR-C Tamar Atwood THRESHING DEPARTMENT SUPERVISOR Work Phone: [facility] Work Phone: 10-10-2021 11:51-0500 SaO2% (BldA) [Mass fraction] 97 % THRESHING DEPARTMENT SUPERVISOR-C Tamar Atwood THRESHING DEPARTMENT SUPERVISOR Work Phone: [facility] Work Phone: 10-10-2021 11:51-0500 Systolic blood pressure 110 mm[Hg] THRESHING DEPARTMENT SUPERVISOR-C Tamar Atwood THRESHING DEPARTMENT SUPERVISOR Work Phone: [facility] Work Phone: 10-06-2021 17:41-0500 Body mass index (BMI) [Ratio] 28.8 kg/m2 THRESHING DEPARTMENT SUPERVISOR-C Tamar Atwood THRESHING DEPARTMENT SUPERVISOR Work Phone: [facility] Work Phone: 10-06-2021 17:41-0500 Body temperature 97.3 [degF] THRESHING DEPARTMENT SUPERVISOR-C Tamar Atwood THRESHING DEPARTMENT SUPERVISOR Work Phone: [facility] Work Phone: 10-06-2021 17:41-0500 Body weight 91.17 kg THRESHING DEPARTMENT SUPERVISOR-C Tamar Atwood THRESHING DEPARTMENT SUPERVISOR Work Phone: [facility] Work Phone: 10-06-2021 17:41-0500 Diastolic blood pressure 80 mm[Hg] THRESHING DEPARTMENT SUPERVISOR-C Tamar Atwood THRESHING DEPARTMENT SUPERVISOR Work Phone: [facility] Work Phone: 10-06-2021 17:41-0500 Heart rate 74 /min THRESHING DEPARTMENT SUPERVISOR-C Tamar Atwood THRESHING DEPARTMENT SUPERVISOR Work Phone: [facility] Work Phone: 10-06-2021 17:41-0500 Respiratory rate 18 /min THRESHING DEPARTMENT SUPERVISOR-C Tamar Atwood THRESHING DEPARTMENT SUPERVISOR Work Phone: [facility] Work Phone: 10-06-2021 17:41-0500 SaO2% (BldA) [Mass fraction] 97 % THRESHING DEPARTMENT SUPERVISOR-C Tamar Atwood THRESHING DEPARTMENT SUPERVISOR Work Phone: [facility] Work Phone: 10-06-2021 17:41-0500 Systolic blood pressure 130 mm[Hg] THRESHING DEPARTMENT SUPERVISOR-C Tamar Atwood THRESHING DEPARTMENT SUPERVISOR Work Phone: [facility] Work Phone: Encounters Encounter Date Encounter Type Care Provider Facility Start: 02-18-2025 End: 02-18-2025 ambulatory Tamarchristin JuradoAtwood THRESHING DEPARTMENT SUPERVISOR-C Work Phone: -Cat Scan [facility] Start: 02-18-2025 End: 02-18-2025 Patient encounter procedure Kip Faith THRESHING DEPARTMENT SUPERVISOR-C -Cat Scan [facility] Work Phone: Start: 02-18-2025 End: 02-18-2025 ambulatory Tamar Atwood THRESHING DEPARTMENT SUPERVISOR Facility:[facility] Start: 01-28-2025 End: 01-28-2025 ambulatory Tamar Atwood THRESHING DEPARTMENT SUPERVISOR-C Work Phone: [facility] Work Phone: Start: 01-28-2025 End: 01-28-2025 Patient encounter procedure Kip Faith THRESHING DEPARTMENT SUPERVISOR-C -Laboratory Work Phone: Start: 01-28-2025 End: 01-28-2025 Patient encounter procedure Kip Faith THRESHING DEPARTMENT SUPERVISOR-C -[facility] Work Phone: Start: 01-28-2025 End: 01-28-2025 ambulatory Tamar Atwood THRESHING DEPARTMENT SUPERVISOR-C Work Phone: [facility] Work Phone: Start: 01-28-2025 End: 01-28-2025 ambulatory Tamar Atwood THRESHING DEPARTMENT SUPERVISOR Facility:[facility] Start: 09-07-2024 End: 09-07-2024 ambulatory Tamar Atwood THRESHING DEPARTMENT SUPERVISOR Facility:[facility] Start: 07-16-2024 End: 07-16-2024 Office outpatient new 30 minutes Fidelina Kaye APRN.BINDERY WORKER Work Phone: [facility] Comment on above: Pharyngitis, unspeci fied etiology (Primary Dx) Start: 08-23-2023 End: 08-23-2023 ambulatory [facility] Work Phone: Start: 08-23-2023 End: 08-23-2023 Patient encounter procedure [facility]-Laboratory, Specimen Work Phone: Start: 10-18-2022 End: 10-18-2022 ambulatory [facility] Work Phone: Start: 10-18-2022 End: 10-18-2022 Patient encounter procedure [facility]-Laboratory, Specimen Start: 03-08-2022 Non-patient / Non-visit THRESHING DEPARTMENT SUPERVISOR-C Toni Atwood THRESHING DEPARTMENT SUPERVISOR Work Phone: [facility] Start: 03-08-2022 End: 03-08-2022 Patient encounter procedure THRESHING DEPARTMENT SUPERVISOR-Myriam Atwood THRESHING DEPARTMENT SUPERVISOR Work Phone: [facility]-Cardiovascula r Services Start: 02-15-2022 End: 02-15-2022 Patient encounter procedure THRESHING DEPARTMENT SUPERVISOR-Myriam Atwood THRESHING DEPARTMENT SUPERVISOR Work Phone: [facility] Start: 12-25-2021 End: 12-25-2021 Patient encounter procedure THRESHING DEPARTMENT SUPERVISOR-Myriam Atwood THRESHING DEPARTMENT SUPERVISOR Work Phone: [facility] Start: 11-23-2021 End: 11-23-2021 Patient encounter procedure THRESHING DEPARTMENT SUPERVISOR-Myriam Atwood THRESHING DEPARTMENT SUPERVISOR Work Phone: [facility]-MRI - [facility] Start: 11-08-2021 End: 11-08-2021 Patient encounter procedure THRESHING DEPARTMENT SUPERVISOR-Myriam Tamar Juradoson THRESHING DEPARTMENT SUPERVISOR Work Phone: [facility] Start: 11-03-2021 End: 11-03-2021 Patient encounter procedure THRESHING DEPARTMENT SUPERVISOR-Myriam Juradoson THRESHING DEPARTMENT SUPERVISOR Work Phone: [facility]-Radiology, [facility] Start: 10-10-2021 End: 10-10-2021 Patient encounter procedure THRESHING DEPARTMENT SUPERVISOR-C Tamar Juradoson THRESHING DEPARTMENT SUPERVISOR Work Phone: [facility] Start: 10-06-2021 End: 10-06-2021 Patient encounter procedure THRESHING DEPARTMENT SUPERVISOR-Myriam Atwood THRESHING DEPARTMENT SUPERVISOR Work Phone: [facility], Specimen Procedures Date Procedure Procedure Detail Performing Clinician Start: 02-18-2025 CT angiography of ch est with contrast Tamar NICOLEC Work Phone: Start: 07-16-2024 STREP A MOLECULAR (POC) Fidelina aKye APRN.BINDERY WORKER Work Phone: Start: 03-08-2022 Radionuclide imaging of perfusion of myocardium under exercise stress THRESHING DEPARTMENT SUPERVISOR-Myriam Atwood THRESHING DEPARTMENT SUPERVISOR Work Phone: Start: 11-03-2021 X-ray of cervical spine THRESHING DEPARTMENT SUPERVISOR-Myriam Atwood THRESHING DEPARTMENT SUPERVISOR Work Phone: Start: 10-18-2019 Lipid 1996 panel - S jorge or Plasma Fidelina Kaye APRN.BINDERY WORKER Work Phone: Start: 10-17-2019 History of placement of stent for coronary artery disease History of coronary artery stent placement Kip Faith THRESHING DEPARTMENT SUPERVISORRitikaC Comment on above: PCI-ОЛЕГ-Mid/Distal R CA w/ 2.5 x 28 mm Synergy Stent, Prox/Mid RCA w/ 3.0 x 38 mm Synergy Stent , Distal RCA w/ 2.5 x 8 mm Synergy Stent; ОЛЕГ-Prox RCA 3.5 x 8 mm 10/17/19 Plan of Treatment Date Care Activity Detail Author Start: 2031 RSV Vaccine (1 - 1-dose 75+ series) RSV Vaccine (1 - 1-dose 75+ series) [facility] Start: 03-13-2029 Urine microalbumin profile DTaP,Tdap,Td Vaccine (2 - Td or Tdap) [facility] Start: 03-02-2025 ambulatory Ambulatory Facility:[facility] Start: 01-28-2025 Evaluation of diagnostic study results [facility] Start: 10-17-2024 Lipid panel Lipid Screening [facility] Start: 04-12-2024 Covid-19 Vaccine ( season) Covid-19 Vaccine ( season) [facility] Start: 04-12-2024 Influenza vaccination Influenza Vaccine (#1) [facility] Start: 08-12-2023 Advance Directive Discussion Advance Directive Discussion [facility] Start: 10-17-2022 Diabetes Screening Diabetes Screening [facility] Start: 12-25-2021 Patient referral [facility] Work Phone: Start: 2021 Pneumococcal Vaccine: 65+ (2 of 2 - PCV) Pneumococcal Vaccine: 65+ (2 of 2 - PCV) [facility] Start: 2011 Prostate specific antigen measurement Prostate Cancer Screening Discussion [facility] Start: 2006 Shingrix Vaccine (1 of 2) Shingrix Vaccine (1 of 2) [facility] Start: 2001 Screening for malignant neoplasm of colon [facility] Start: 1974 Anxiety Screening Anxiety Screening [facility] Start: 1974 Depression Screening Depression Screening [facility] Start: 1974 Hepatitis C screening Hepatitis C Screening [facility] Start: 1956 Abdominal aortic aneurysm screening Abdominal Aortic Aneurysm Screening [facility] Basic metabolic 2008 panel with ionized calcium - Serum or Plasma [facility] CBC W Auto Different ial panel - Blood [facility] COVID & INFLUENZA A/ B & RSV PCR, ROUTINE COVID & INFLUENZA A/B & RSV PCR, ROUTINE Microbiology Routine Pharyngitis, unspecified etiology 07/16/2024 11:12 AM EST [facility] Work Phone: CTA Chest vessels WO and W contrast IV [facility] Lipid 1996 panel - S jorge or Plasma [facility] Work Phone: Magnesium measurement [facility] Natriuretic peptide. B prohormone N-Terminal [Mass/volume] in Serum or Plasma [facility] Patient referral [facility] Work Phone: Radionuclide imaging of perfusion of myocardium under exercise stress [facility] Payers Date Payer Category Payer Self-pay [id number] 2024 Unknown ANTH [facility]UE [facility] S AND BLUE [facility] ANTH MEDICARE ADVANTAGE HMO [id number] 2024-[facility] [phone] [address] [place] [address] O [id number] 2024 Medicare [id number] Medicare [id number] Medicare [id number] Unknown [id number] Unknown [id number] Unknown [id number] Unknown [id number] Unknown [id number] Unknown [id number] Unknown [id number] Unknown [id number] Social History Date Type Detail Facility Start: 10-10-2021 End: 08-23-2023 Tobacco smoking status IDIS Unknown if ever smoked [facility] Start: 1955 Sex Assigned At Male [facility] Start: 10-17-2019 End: 09-07-2024 Tobacco smoking status NHIS Ex-smoker [facility] History of tobacco use Current smoker [facility] Start: 10-17-2019 Tobacco use and exposure Smoke less tobacco non-user [facility] Start: 10-17-2019 Alcoholic beverage intake Curr ent drinker of alcohol (finding) [facility] Start: 10-17-2019 End: 05-17-2021 History of Social function [facility] Start: 10-17-2019 End: 05-17-2021 Alcohol Use Disorder Identification Test - Consumption [AUDIT-C] [facility] How often to you hav e a drink containing alcohol? Monthly or less [facility] Average Number of Drinks Not on file [facility] Start: 1955 Sex assigned at Not on file [facility] Medical Equipment Procedure Code Equipment Code Equipment Origin al Text Equipment Identifier Dates Blood Sugar Diagnostic (Accu-Chek Guide Test Strips) strip Start: 02-06-2021 Lancets (Accu-Ch ek Fastclix Lancet Drum) [facility] Start: 10-22-2019 Blood Sugar Diagnostic (Accu-Chek Guide Test Strips) strip Start: 10-22-2019 End: 10-17-2020 Blood Sugar Diagnostic (Accu-Chek Guide Test Strips) strip Start: 10-17-2020 End: 02-06-2021 Blood Sugar Diagnostic (Accu-Chek Guide Test Strips) strip Start: 02-06-2021 Lancets (Accu-Ch ek Fastclix Lancet Drum) [facility] Start: 10-22-2019 Blood Sugar Diagnostic (Accu-Chek Guide [...] 12-10-2023 End: 09-07-2024 Clinical Notes 10-17-2019 to 02-18-2025 Note Date & Type Note Facility 02-18-2025 Radiology Diagnostic study note [facility] Imaging Services [address] [place] [address] CTA Chest W/WO Contrast MR#: [id number] Acct: [id number] Name: SHARIF CADE Rep #: [id number] : 1955 M 69 From: Raji Garcia MD PCP: DIANA Pedro Status: REG CLI Study:CTA Chest W/WO Contrast Date of Exam: 02/18/25 Exam# [id number] Ordering Dr: Husam Faith NP PROCEDURE: CTA CHEST W/WO CONTRAST 02/18/2025 REASON FOR EXAM: EVALUATE ABNORMAL CT FROM 2016 AT [facility] TECHNIQUE: One or more dose reduction techniques were used (e.g., Automated exposure control, adjustment of the mA and/or kV according to patient size, use of iterative reconstruction technique). CTA CHEST W/WO CONTRAST Multiplanar Sagittal and Coronal images were obtained. 3D post processing was performed CONTRAST: Isovue 370 VOLUME: 100 mL RADIATION DOSE SUMMARY: CTDlvol: 14.1 mGy DLP: 591. 0 7 mGycm COMPARISON: No prior study available for comparison at this time. FINDINGS: Hardware: None Lymph nodes: Small benign-appearing bilateral axillary lymph nodes. Heart: Coronary artery calcifications are noted. Thoracic Aorta: Atherosclerotic plaque formation of the aortic arch. Pulmonary Vessels: No evidence of pulmonary embolism. Lungs and Airways: Calcified granuloma in the right lower lobe. Pleura: No pleural effusion. Upper Abdomen: Linear calcification of the left adrenal gland. Bones: Degenerative changes of the thoracic spine. CT/CTA Chest W/WO Contrast IMPRESSION: Coronary artery calcification. Calcified granuloma in the right lower lobe. Reading Location: [facility] CC: DIANA Atwood; DIANA Faith ~ Sampling Expert: Signed [facility] 01-28-2025 Evaluation note Diagnosis Onset Date Resolution Chest pain acute January 28 8:19am Diabetes type 2, uncontrolled chronic January 28, 2025 8:19am Essential (primary) hypertension chronic January 28, 2025 8:19am History of coronary artery stent placement October 17, 2019 chronic January 28, 2025 8:19am Hyperlipidemia chronic January 28, 2025 8:19am Ischemic cardiomyopathy chronic January 28, 2025 8:19am [facility] Work Phone: 1(662) 834-388712-05-2024 History of Present illness Narrative* Fidelina Kaye APRN.BINDERY WORKER - 07/16/2024 10:41 AM EST This note was created using [employer]. Subjective Sharif Cade is a 69 year [...] hours, isolation in the interim. Result to [facility],code sent. -Drink lots of fluids and get [...] which included preparing to see the patient, [id number] patient care, completing clinical documentation, obtaining and/or reviewing separately obtained history, performing a medically appropriate examination, counseling and educating the pat ient/family/caregiver, and ordering medications, tests, or procedures. This patient encounter involved the screening or treatment of novel coronavirus infection (COVID-19). [facility] Instructions* Patient Instructions* Fidelina Kaye APRN.CNP - [...] hours, isolation in the interim. Result to [facility],code sent. -Drink lots of fluids and get [...] status, or other concerns. [facility] NoteHNO ID: [id number] Author: RT Nasim(R) Service: ? Author Type: [...] BY: RT Nasim(R) May 17, 2021 8:54 [facility]03-07-2020 Evaluation note* Diagnosis Onset Date Resolution Status Hyperlipidemia acute Diabetes type 2, uncontrolled chronic Essential (primary) hypertension chronic Essential (primary) hypertension chronic History of coronary artery stent placement October 17, 2019 chronic Ischemic cardiomyopathy [facility] Work Phone: 1(697) 425-157503-07-2020 Evaluation note* Diagnosis Onset Date Resolution Status Hyperlipidemia acute Diabetes type 2, uncontrolled chronic Essential (primary) hypertension chronic Essential (primary) hypertension chronic History of coronary artery stent placement October 17, 2019 chronic Ischemic cardiomyopathy [facility] Degenerative disc disease, cervical acute Acquired skin tag acute [facility] Work Phone: Evaluation note* Diagnosis Onset Date Resolution Status Acquired skin tag acute Degenerative disc disease, cervical acute Chest pain acute Hyperlipidemia acute Essential (primary) hypertension chronic History of coronary artery stent placement October 17, 2019 chronic Ischemic cardiomyopathy [facility] Work Phone: Evaluation note* Diagnosis Onset Date Resolution Status Bronchitis acute Cough acute Maxillary sinusitis, acute a cute Diabetes type 2, uncontrolled chronic GERD (gastroesophageal reflux disease) acute Diabetes type 2, uncontrolled chronic Essential (primary) hypertension chronic Hyperlipidemia [facility] Work Phone: Evaluation note* Diagnosis Onset Date Resolution Status GERD (gastroesophageal reflux disease) acute Neurofibroma of multiple sites acute Diabetes type 2, uncontrolled chronic Essential (primary) hypertension chronic Hyperlipidemia chronic Ischemic cardiomyopathy [facility] Work Phone: Evaluation note* Diagnosis Pharyngitis, unspecified etiology- Primary [facility] Diagnosis Onset Date Resolution Status Admit Date Chest pain acute January 28 8:19am Diabetes type 2, uncontrolled chroni c January 28, 2025 8:19am Essential (primary) hypertension chronic January 28, 2025 8:19am History of coronary artery stent placement October 17, 2019 chronic January 28, 2025 8:19am Hyperlipidemia chronic January 28, 2025 8:19am Ischemic cardiomyopathy chronic J une 2024 8:19am [facility] Work Phone: Reason for referral (narrative)No reason for referral information availableM[facility] Work Phone: Summary Purpose Family History No Family History Records Found Relationship Condition Age at Onset Recorded Date/T yon Not Specified Diabetes mellitus Unknown Coronary artery disease Unknown Cardiac disease Unknown Malignant neoplasm Unknown Advance Directives No Advanced Directives Records Found Advance Directive Response Recorded Date/ Time Advance Directives Yes April 7:01am Living Will Yes May 11, 2021 7:01am Power of C 40A Crew Chief Yes April 7:01am Advance Directive Response Recorded Date/ Time Advance Directives Yes November 22, 2 022 2:49pm Living Will Yes November 22, 2021 2:49pm Power of C 40A Crew Chief Yes November 22 2:49pm Advance Directive Response Recorded Date/ Time Advance Directives Yes July 3:30pm Living Will Yes August 07, 022 3:30pm Power of C 40A Crew Chief Yes August 07, 2022 3:30pm Advance Directive Response Recorded Date/ Time Advance Directives Yes August 23, 2023 2:33pm Living Will Yes August 23 2:33pm Power of C 40A Crew Chief Yes August 23, 2023 2:33pm Date Activated Date Inactivated Comments 10/17/2019 12:24 PM 10/19/2019 8:03 PM Question Answer Comments Full Code Order Discussed With: Patient Advance Directive Response Recorded Date/ Time Living Will Yes August 23 3:33pm Do you have a Healthcare Power of C 40A Crew Chief? Yes August 23, 2023 3:33pm Advance Directives [...] cerv Cervical spine 9 M FU/MOV[facility] FROM [facility] CARDIOMYOPATHY, CP, CAD *KARTIK* Reason for [...] Y FU January 28, 2025 8:19 am Chief Complaint Admit Date 1 Y FU January 28, 2025 8:19 am E ORDERS January 28, 2025 9:41 am Chest pain, unspecified February 18, 2025 6:03am Additional Source Comments (unrecognized sect ion and content) No Status Records FoundNo Status Records FoundNo Status Records FoundNo Status Records FoundNo Status Records Found INFORMATION SOURCE (unrecogn ized section and content) DATE CREATED AUTHOR 07/28/2020 [facility] DATE CREATED AUTHOR AUTHOR'S ORGANIZ ATION 05/18/2021 [facility] DATE CREATED AUTHOR AUTHOR'S ORGANIZ ATION 09/27/2021 [facility] DATE CREATED AUTHOR AUTHOR'S ORGANIZ ATION 12/20/2021 [facility] dical Specialist DATE CREATED AUTHOR AUTHOR'S ORGANIZ ATION 02/27/2025 [facility] Goals (unrecognized section and content) Goals may [...] Active Member Role Status Dates Tamar Atwood NP, THRESHING DEPARTMENT SUPERVISOR-C Primary Care Provider Active Team Status: Inactive Member Role Status Dates Tamar Atwood THRESHING DEPARTMENT SUPERVISOR, THRESHING DEPARTMENT SUPERVISOR-C Primary Care Pr ovider, Attending Provider, Referring Provider Active Team Status: Inactive Member Role Status Dates Tamar Atwood NP, THRESHING DEPARTMENT SUPERVISOR-C Primary Care Provider, Attend ing Provider Active Preschool Aide Relationship Specialty Start Date End Date Tamar Atwood, WEB PRESS OPERATOR ASSISTANT.BINDERY WORKER [address] [address] [place] [address] PCP - General Family Medicine 10/17/19 Team Status: Inactive Member Role Status Dates Tamar Atwood NP, THRESHING DEPARTMENT SUPERVISOR-C Primary Care Provider Active Start: January 28, 2025 End: January 28, 2025 Tamar Atwood THRESHING DEPARTMENT SUPERVISOR, THRESHING DEPARTMENT SUPERVISOR-C Referring Provider Active Start: January 28, 2025 End: January 28, 2025 Kip Faith THRESHING DEPARTMENT SUPERVISOR, THRESHING DEPARTMENT SUPERVISOR-C Attending Provider Active S tart: January 28, 2025 End: January 28, 2025 Team Status: Inactive Member Role Status Dates Tamar Atwood THRESHING DEPARTMENT SUPERVISOR, THRESHING DEPARTMENT SUPERVISOR-C Primary Care Provider Active Start: January 28, 2025 End: January 28, 2025 Kip Faith THRESHING DEPARTMENT SUPERVISOR, THRESHING DEPARTMENT SUPERVISOR-C Attending Provider Active S tart: January 28, 2025 End: January 28, 2025 Kip Faith THRESHING DEPARTMENT SUPERVISOR, THRESHING DEPARTMENT SUPERVISOR-C Referring Provider Active S tart: January 28, 2025 End: January 28, 2025 Team Status: Active Member Role/Relationship Status Dates Tamar Atwood THRESHING DEPARTMENT SUPERVISOR, THRESHING DEPARTMENT SUPERVISOR-C Primary Care Provider Active Team Status: Inactive Member Role/Relationship Status Dates Tamar Atwood THRESHING DEPARTMENT SUPERVISOR, THRESHING DEPARTMENT SUPERVISOR-C Primary Care Provider Active Start: January 28, 2025 End: January 28, 2025 Tamar Atwood THRESHING DEPARTMENT SUPERVISOR, THRESHING DEPARTMENT SUPERVISOR-C Referring Provider Active Start: January 28, 2025 End: January 28, 2025 Kip Faith THRESHING DEPARTMENT SUPERVISOR, THRESHING DEPARTMENT SUPERVISOR-C Attending Provider Active S tart: January 28, 2025 End: January 28, 2025 Team Status: Inactive Member Role/Relationship Status Dates Tamar Atwood THRESHING DEPARTMENT SUPERVISOR, THRESHING DEPARTMENT SUPERVISOR-C Primary Care Provider Active Start: January 28, 2025 End: January 28, 2025 Kip Faith THRESHING DEPARTMENT SUPERVISOR, THRESHING DEPARTMENT SUPERVISOR-C Attending Provider Active S tart: January 28, 2025 End: January 28, 2025 Kip Faiht THRESHING DEPARTMENT SUPERVISOR, THRESHING DEPARTMENT SUPERVISOR-C Referring Provider Active S tart: January 28, 2025 End: January 28, 2025 Team Status: Inactive Member Role/Relationship Status Dates Tamar Atwood THRESHING DEPARTMENT SUPERVISOR, THRESHING DEPARTMENT SUPERVISOR-C Primary Care Provider Active Start: February 18, 2025 End: February 18, 2025 Kip Faith THRESHING DEPARTMENT SUPERVISOR, THRESHING DEPARTMENT SUPERVISOR-C Attending Provider Active S tart: February 18, 2025 End: February 18, 2025 Kip Faith THRESHING DEPARTMENT SUPERVISOR, THRESHING DEPARTMENT SUPERVISOR-C Referring Provider Active S tart: February 18, 2025 End: February 18, 2025 Source Comments (unrecognize d section and content) In the event this informatio n is protected by the Federal Confidentiality of Alcohol and Drug Abuse Patient Records regulations: The Federal rules restrict any use of the information to criminally investigate or prosecute any alcohol or drug abuse patient.[facility] Reason for Visit (unrecogniz ed section and [...] BE BASED ON THE PRIMARY CLINICAL RECORDS. [facility]. provides no warranty or guarantee of the accuracy or completeness of information in this document.
--- NOTE | 2025-03-02 17:52 | STRESSREP ---
Stress Test Report Exercise myocardial perfusion stress test. 69-year-old man with a history of coronary artery disease status post previous coronary stenting and cardiac arrest Stress protocol: Resting EKG demonstrates sinus bradycardia with a rate of 58 bpm resting blood pressure is 122/70 mmHg. The patient exercised according to the regular Mason protocol for a total duration of 9 minutes attaining a maximum heart rate of 127 bpm which was 83% of maximum predicted heart rate; the maximum workload was 10.1 metabolic equivalents. At rest there were no ST or T wave changes noted to suggest ischemia and at peak exercise upsloping ST changes only were noted which did not meet the criteria for ischemia. No clinical angina was noted the test was terminated due to the target heart rate being achieved/fatigue. The peak blood pressure was 160/78 mmHg. Rate-pressure product was 19,800. Myocardial perfusion protocol. 14.2 mCi of technetium 99m sestamibi was injected at rest. The patient exercised according to regular Mason protocol for total duration of 9 minutes and at peak exercise 43.5 mCi of technetium 99m sestamibi was injected stress images were obtained stress and rest images were reconstructed in comparing the short axis vertical long and horizontal long axis. Gated images were also obtained. Perfusion SPECT analysis: Review of the stress images demonstrate normal uptake of tracer noted in all areas of the myocardium. There is a medium size defect noted in the mid inferior wall extending to the base. The resting images demonstrate a similar pattern. The above is suggestive of a previous inferior infarct with no reversibility to suggest ischemia. Gated SPECT analysis: The gated ejection fraction is 61%. Conclusion: Exercise myocardial perfusion stress test with no evidence of ischemia at a high workload. Previous inferior infarct present. Preserved ejection fraction.
== END | disposition home or self-care (01) ==
LOC: CVS 06:30
PROVIDERS: PCP Nurse Practitioner; Referring Provider Nurse Practitioner Family; Visit Provider Nurse Practitioner Family
DX: R07.9 Chest pain, unspecified (principal); E11.65 Type 2 diabetes mellitus with hyperglycemia; Z95.5 Presence of coronary angioplasty implant and graft; I25.5 Ischemic cardiomyopathy; R06.09 Other forms of dyspnea
CPT/HCPCS: 78452; 93017; A9500; A4216